=== PATIENT | male | born 1960 | race Caucasian/White ===

== ENCOUNTER 2018-02-24 09:16 | Observation (INO) | payer OTHER ==
[2018-02-24 09:25] VITALS: BMI 35.9
--- NOTE | 2018-02-24 10:03 | PDOC ---
Attending Attestation - Resident Resident Name: SenJustin - ED Attending Attestation I have performed the following: I have examined & evaluated the patient, The case was reviewed & discussed with the resident, I agree w/resident's findings & plan, Exceptions are as noted - HPI HPI: 02/24/18 12:13 Mr. De La Cruz is a 57 yo M with a history RCC (?) s/p Left nephrectomy, h/o renal colic, lumbar disc herniations He presents to the ER with a complaint of fevers and flank pain Pt states yesterday he felt feverish, went to work Noted right flank pain No hematuria No dysuria When he arrived home, he noted that his temperature - Physicial Exam PE: 02/24/18 13:57 GENERAL: The patient is in no acute distress. LUNGS: Breath sounds equal, clear to auscultation bilaterally. No wheezes, and no crackles. HEART:Regular rate and rhythm, normal S1 and S2 without murmur, rub or gallop. ABDOMEN: Soft, nontender, normoactive bowel sounds. No guarding, no rebound. EXTREMITIES: Normal range of motion NEUROLOGICAL: Cranial nerves II through XII grossly intact. Normal speech. No focal neurological deficits. MUSCULOSKELETAL: midline tenderness to palpation not worse than prior, right CVA tenderness SKIN: No rash - Medical Decision Making 02/24/18 13:59 57 yo M presenting to the ER with a complaint of fevers and right flank pain T max 102 DD: Pyelonephritis, Renal colic, Early Zoster Will do: Labs CT IV hydration Tylenol IV Re assess 02/24/18 14:00 Laboratory Tests 02/24/18 02/24/18 02/24/18 10:16 10:16 10:17 WBC 6.9 Hgb 11.4 L Hct 35.6 Plt Count 182 Sodium 141 Potassium 3.9 Chloride 107 Carbon Dioxide 26 BUN 20 H Creatinine 1.4 H Random Glucose 90 Urine Blood Negative Ur Leukocyte Esterase Negative Urine WBC (Auto) 1 Urine RBC (Auto) <1 CT: No stones No stranding around kidney No hydronephrosis Mass on kidney with radiologist recommends follow up US US pending Case reviewed with Hospitalist JOB TRAINING SPECIALIST Not inclined to admit him at this time Will re address this once pt has had US
[2018-02-24] MEDS ORDERED: SODIUM CHLORIDE 0.9% 500 ML INFUS.BAG IV ONE (10:12)
--- NOTE | 2018-02-24 10:23 | PDOC ---
History of Present Illness - General Chief Complaint: Back Pain Stated Complaint: FEVER, BACK PAIN (KIDNEY) Time Seen by Provider: 02/24/18 09:37 - History of Present Illness Initial Comments: 02/24/18 10:16 57 y/o male presenting to [facility] ED complaining of two days of R flank pain, fever , and generalized body aches. Pain is localized to R flank without radiation to midline, lower abdomen, or perineum; location has not changed since onset. Fever to 102 orally last evening, which was responsive to PO Tylenol (last dose approx 23 February @ 21:00). Body aches generalized. Denies polyuria, dysuria, hematuria, or burning sensation. Has experienced renal colic in past and lumbar radiculopathy secondary to multiple lumbar disk herniations and states this is different. Has a history of renal cancer, type unknown by pt, diagnosed 10 years ago; s/p left nephrectomy. Denies history of STD or IV drug abuse. Denies trauma to the area. Denies nausea, vomiting, chest pain, shortness of breath, abdominal pain, constipation, melena, or hematochezia. Single episode of diarrhea this morning. Past History - Travel Traveled outside of the country in the last 30 days: No - Past Medical History Allergies/Adverse Reactions: Allergies Allergy/AdvReac Type Severity Reaction Status Date / Time clarithromycin [From Biaxin] Allergy Verified 01/09/14 08:23 NUTS Allergy Uncoded 01/09/14 08:23 Home Medications: Ambulatory Orders NK [No Known Home Medication] 01/09/14 Cancer: Yes (KIDNEY-1 KIDNEY LEFT) COPD: No HTN: Yes - Surgical History Neurologic Surgery: Yes (Left Nephrectomy ) Orthopedic Surgery: Yes (R Shoulder, R great toe) - Immunization History Immunization Up to Date: Yes - Suicide/Smoking/Psychosocial Hx Smoking Status: No Smoking History: Former smoker Number of Cigarettes Smoked Daily: 0 Information on smoking cessation initiated: No Hx Alcohol Use: No Drug/Substance Use Hx: No Substance Use Type: Marijuana (Infrequent Use) Review of Systems - Review of Systems Able to Perform ROS?: Yes Is the patient limited Armenian proficient: No Constitutional: Yes: Chills, Diaphoresis, Fever. No: Weakness HEENTM: No: Recent change in vision, Mouth Pain, Difficulty Swallowing Respiratory: No: Shortness of Breath Cardiac (ROS): No: Chest Pain, Lightheadedness, Syncope, Chest Tightness ABD/GI: Yes: Diarrhea. No: Abd. Pain w/ defecation, Blood Streaked Bowels, Constipated, Difficulty Swallowing, Nausea, Rectal Bleeding, Vomiting, Tarry Stools : Yes: Flank Pain. No: Burning, Dysuria, Discharge, Frequency, Hematuria, Incontinence, Testicular Pain Musculoskeletal: Yes: Muscle Pain Integumentary: No: Rash Neurological: Yes: Headache *Physical Exam - Vital Signs Last Vital Signs Temp Pulse Resp BP Pulse Ox 98.4 F 68 16 150/94 98 02/24/18 09:23 02/24/18 09:23 02/24/18 09:23 02/24/18 09:23 02/24/18 09:23 - Physical Exam Comments: 02/24/18 10:43 Constitutional: Well-developed, well-nourished male in no acute distress. Alert and oriented x4, with normal affect. Dressed and groomed appropriately. Eyes: Sclerae white. Moist, non-injected conjunctiva. ENT: Oropharynx: pink, moist, not injected, no lesions, no ulcerations. Moist mucus membranes. Neck: Supple, trachea is midline, no JVD. Cardiovascular: Regular rate and regular rhythm. PMI not displaced. Peripheral pulses: Radial pulses full Respiratory: Clear to auscultation bilaterally. No stridor, no wheezing, no rhonchi. Gastrointestinal: abdomen is soft, non-tender, non-distended. There is no hepatosplenemegaly, masses or tenderness. No CVA tenderness. MSK: No midline lumbar spinal tenderness. Flank pain increases with torso rotation and raising both right and left legs. Neuro: Alert and oriented. Moving all extremities spontaneously. Psych: Appropriate affect. Skin: Intact. No bruising or other obvious signs of trauma. No rash. ED Treatment Course - LABORATORY CBC & Chemistry Diagram: 02/24/18 10:16 02/24/18 10:16 - RADIOLOGY Radiology Studies Ordered: Category Date Time Status ABDOMEN & PELVIS CT W/O CONTR [CT] Stat CT Scan 02/24/18 10:12 Ordered Medical Decision Making - Medical Decision Making 02/24/18 11:08 57 y/o male with history of renal cancer s/p left nephrectomy and lumbar disk herniation with radiculopathy presents with non-radiating, non-migrating right flank pain and general body aches. Reported fever to 102 at home. No GI or symptoms. Afebrile on presentation. Vitals remarkable for systolic hypertension without tachycardia. Physical unremarkable for CVA tenderness or abdominal tenderness; pain increased with raising either left or right leg. Concern for pyelonephritis given fever and flank pain however no CVA tenderness. Concern for lumbar radiculopathy given pain increased by raising leg in setting of lumbar disk herniation history. Considered paraspinal/ osteomylitis given pain and fever but less likely without history of IV drug abuse. Cauda equina syndrome seems less likely given lack of urinary retention. Nephrolithiasis considered but less likely without migrating pain or hematuria. Will obtain non-contrast CT of Abd/pelvis with concern given to prior cancer diagnosis. Will order CBC, CMP, ESR, CRP, UA, and urine culture to further evaluate. Ordered IV acetaminophen for pain control. CBC unremarkable for leukocytosis. CMP revealed unremarkable LFTs, hypokalcemia to 8.1. BUN and Cr elevated but difficult to interpret without comparison - last recorded labs in 2013. UA unremarkable for leukocyte esterase or WBC. CRP elevated. ESR pending. Discussed results with patient and as well as the possibility of admission to the hospital. Both expressed verbal understanding and agreement with current plan. 02/24/18 13:36 Non-con CT unremarkable for evidence of hydronephrosis or obstruction. Noted mass projecting from lower pole of right kidney, which was not present on previous scans. Additionally noted increase in size of right adrenal nodule compared to scan from December 2013. Will evaluate renal mass with ultrasound. 02/24/18 14:42 Pt reassessed. Continues to complain of back pain but has not received ordered Tylenol. RN notified, and meds drawn. 02/24/18 15:33 Telephone consulted with pt's PCP, Dr. Torres. He requested the pt be admitted for observation with concern for the pt's elevated Cr and pain management. Reached out to hospitalist team again via [employer]. 02/24/18 15:41 Admitting team agrees to accept pt into observation. *DC/Admit/Observation/Transfer Diagnosis at time of Disposition: CHRISTINA (acute kidney injury) Back pain Qualifiers: Back pain location: low back pain Chronicity: acute Back pain laterality: right Sciatica presence: without sciatica Qualified Code(s): M54.5 - Low back pain - Discharge Dispostion Condition at time of disposition: Stable Decision to Admit order: Yes - Referrals - Patient Instructions - Post Discharge Activity
[2018-02-24 10:44] LABS: BASO % 0.6 % (0-2.0); EOS % 1.8 % (0-4.5); HEMATOCRIT 35.6 % (35.4-49); HEMOGLOBIN 11.4 GM/dL (11.7-16.9); LYMPH % 14.3 % (8-40); MCH 22.6 pg (25.7-33.7); MCHC 32.2 g/dl (32.0-35.9); MEAN CELL VOLUME 70.4 fl (80-96); MEAN PLT VOLUME 8.3 fl (7.5-11.1); MONO % 6.8 % (3.8-10.2); NEUT % 76.5 % (42.8-82.8); PLATELET COUNT 182 K/MM3 (134-434); RBC 5.05 M/mm3 (4.00-5.60); RDW 18.4 % (11.9-15.9); WHITE BLOOD COUNT 6.9 K/mm3 (4.0-10.0)
[2018-02-24 10:47] LABS: URINE APPEARANCE CLEAR; URINE BILIRUBIN NEGATIVE (<2.0 mg/dL); URINE COLOR YELLOW; URINE GLUCOSE (UA) NEGATIVE (NEGATIVE); URINE KETONE NEGATIVE (NEGATIVE); URINE LEUK ESTERASE NEGATIVE (NEGATIVE); URINE NITRITE NEGATIVE (NEGATIVE); URINE UROBILINOGEN NEGATIVE mg/dL (0.2-1.0)
[2018-02-24 10:52] LABS: ALBUMIN 3.4 g/dl (3.4-5.0); ANION GAP 8 (8-16); BLOOD UREA NITROGEN 20 mg/dL (7-18); CALCIUM 8.1 mg/dL (8.5-10.1); CHLORIDE 107 mmol/L (98-107); CO2 26 mmol/L (21-32); GLUCOSE,RANDOM 90 mg/dL (74-106); POTASSIUM 3.9 mmol/L (3.5-5.1); SODIUM 141 mmol/L (136-145)
[2018-02-24 10:56] LABS: ALK PHOS 69 U/L (45-117); BILIRUBIN,TOTAL 0.6 mg/dL (0.2-1.0); CREATININE 1.4 mg/dL (0.7-1.3); SGOT/AST 18 U/L (15-37); SGPT/ALT 25 U/L (12-78); TOT PROT 6.8 g/dl (6.4-8.2)
[2018-02-24] MEDS ORDERED: ACETAMINOPHEN 1000 MG/100 ML VIAL (NON FORMULARY) IVPB PRN (10:57)
[2018-02-24 11:05] LABS: URINE PROTEIN 2+ (NEGATIVE)
[2018-02-24] MEDS ORDERED: ACETAMINOPHEN 1000 MG/100 ML VIAL (NON FORMULARY) IVPB ONE (11:18)
[2018-02-24 11:41] LABS: URINE HYALINE CAST 101 /lpf; URINE MUCUS RARE
[2018-02-24 14:40] LABS: ERYTHROCYTE SEDIMENTATION RATE 12 mm/hr (0-20)
[2018-02-24] MEDS ORDERED: ACETAMINOPHEN 325 MG TABLET (FP) ONE (14:41)
--- NOTE | 2018-02-24 17:42 | HP ---
CHIEF COMPLAINT: Fever, pains PCP: Dr. Torres HISTORY OF PRESENT ILLNESS: This is a 57 year old male with PMHx of left renal cell carcinoma, HTN, herniated discs, who presented to the ED with generalized body aches, fever, right flank pain. The patient reports that yesterday his knees began to hurt and he began having generalized body aches. Around 2:30 in the afternoon he began feeling feverish. At 9:30pm his temperature was 101.4. Then at 1am he woke up in a sweat and his temperature was 102. He reports he is feeling better today but came in because he was concerned that he only has one kidney. He denies any chest pain, palpitations, headache, dizziness, headache, lower extremity weakness. Off note, the patient reports suffering from chronic back pain. ER course was notable for: (1) CTAP s/p left nephrectomy without evidence of right urinary tract calculi or obstructive uropathy. 2.7cm lower pole right renal mass that could represent a cyst. Right adrenal nodule that has increased in size since 01/09/14. Splenomegaly with adjacent accessory spleen (2) Renal ultrasound with right suprarenal nodule compatible with previously described right adrenal nodule/mass (3) Cr 1.4 Recent Travel: denies PAST MEDICAL HISTORY: as above PAST SURGICAL HISTORY: as above Social History: Smoking: denies Alcohol: denies Drugs: denies Family History: Allergies clarithromycin [From Biaxin] Allergy (Verified 01/09/14 08:23) NUTS Allergy (Uncoded 01/09/14 08:23) HOME MEDICATIONS: Home Medications Medication Instructions Recorded NK [No Known Home Medication] 01/09/14 REVIEW OF SYSTEMS CONSTITUTIONAL: Fever overnight, generalized weakness Absent: chills, diaphoresis, malaise, loss of appetite, weight change HEENT: Absent: rhinorrhea, nasal congestion, throat pain, throat swelling, difficulty swallowing, mouth swelling, ear pain, eye pain, visual changes CARDIOVASCULAR: Absent: chest pain, syncope, palpitations, irregular heart rate, lightheadedness , peripheral edema RESPIRATORY: Absent: cough, shortness of breath, dyspnea with exertion, orthopnea, wheezing, stridor, hemoptysis GASTROINTESTINAL: Absent: abdominal pain, abdominal distension, nausea, vomiting, diarrhea, constipation, melena, hematochezia GENITOURINARY: Absent: dysuria, frequency, urgency, hesitancy, hematuria, flank pain, genital pain MUSCULOSKELETAL: Joint pains all over since yesterday Absent: myalgia, joint swelling, back pain, neck pain SKIN: Absent: rash, itching, pallor HEMATOLOGIC/IMMUNOLOGIC: Absent: easy bleeding, easy bruising, lymphadenopathy, frequent infections ENDOCRINE: Absent: unexplained weight gain, unexplained weight loss, heat intolerance, cold intolerance NEUROLOGIC: Absent: headache, focal weakness or paresthesias, dizziness, unsteady gait, seizure, mental status changes, bladder or bowel incontinence PSYCHIATRIC: Absent: anxiety, depression, suicidal or homicidal ideation, hallucinations. PHYSICAL EXAMINATION Vital Signs - 24 hr 02/24/18 02/24/18 02/24/18 09:23 12:36 16:10 Temperature 98.4 F 98.8 F 98.8 F Pulse Rate 68 Pulse Rate [ 68 70 Radial] Respiratory 16 18 18 Rate Blood Pressure 150/94 Blood Pressure 155/82 145/80 [Right Arm] O2 Sat by Pulse 98 98 98 Oximetry (%) GENERAL: Awake, alert, and fully oriented, in no acute distress. HEAD: no nuchal rigidity. Normal with no signs of trauma. EYES: Pupils equal, round and reactive to light, extraocular movements intact, sclera anicteric, conjunctiva clear. No lid lag. EARS, NOSE, THROAT: Ears normal, nares patent, oropharynx clear without exudates. Moist mucous membranes. NECK: Normal range of motion, supple without lymphadenopathy, JVD, or masses. LUNGS: Breath sounds equal, clear to auscultation bilaterally. No wheezes, and no crackles. No accessory muscle use. HEART: Regular rate and rhythm, normal S1 and S2 without murmur, rub or gallop. ABDOMEN: Soft, nontender, not distended, normoactive bowel sounds, no guarding, no rebound, no masses. No hepatomegaly or splenomegaly. MUSCULOSKELETAL: Mild right CVA tenderness. Normal range of motion at all joints. No bony deformities or tenderness. UPPER EXTREMITIES: 2+ pulses, warm, well-perfused. No cyanosis. No clubbing. No peripheral edema. LOWER EXTREMITIES: 2+ pulses, warm, well-perfused. No calf tenderness. No peripheral edema. NEUROLOGICAL: Cranial nerves II-XII intact. Normal speech. PSYCHIATRIC: Cooperative. Good eye contact. Appropriate mood and affect. SKIN: Warm, dry, normal turgor, no rashes or lesions noted, normal capillary refill. Laboratory Results - last 24 hr 02/24/18 02/24/18 02/24/18 10:16 10:16 10:17 WBC 6.9 RBC 5.05 Hgb 11.4 L Hct 35.6 MCV 70.4 L MCH 22.6 L MCHC 32.2 RDW 18.4 H Plt Count 182 MPV 8.3 Absolute Neuts (auto) 5.3 Neutrophils % 76.5 D Lymphocytes % 14.3 D Monocytes % 6.8 Eosinophils % 1.8 Basophils % 0.6 Nucleated RBC % 0 ESR 12 Sodium 141 Potassium 3.9 Chloride 107 Carbon Dioxide 26 Anion Gap 8 BUN 20 H Creatinine 1.4 H Creat Clearance w eGFR 52.05 Random Glucose 90 Calcium 8.1 L Total Bilirubin 0.6 AST 18 ALT 25 Alkaline Phosphatase 69 C-Reactive Protein 5.6 H Total Protein 6.8 Albumin 3.4 Urine Color Yellow Urine Appearance Clear Urine pH 5.0 Ur Specific [place] 1.024 Urine Protein 2+ H Urine Glucose (UA) Negative Urine Ketones Negative Urine Blood Negative Urine Nitrite Negative Urine Bilirubin Negative Urine Urobilinogen Negative Ur Leukocyte Esterase Negative Urine WBC (Auto) 1 Urine RBC (Auto) <1 Hyaline Casts 101 Urine Mucus Rare Assessment: This is a 57 year old male with PMHx of left renal cell carcinoma, HTN, herniated discs, who presented to the ED with generalized body aches, fever , right flank pain. Plan: 1) Arthralgia, fever - No joint swelling - Viral syndrome vs. lyme disease vs. gonorrhea? - F/u lyme Ab - F/u cultures - F/u GC/CT - F/u CRP (ESR WNL) - Will hold off on antibiotics at this time 2) Right flank pain - CTAP reviewed - Baseline Cr ~1.2-1.3 - Discussed with Dr. Torres who is recommending a nephrology consult 3) HTN - Hold Losartan 2/2 worsening kidney function? - Continue Lopressor - Continue Norvasc 4) F/E/N: - Sodium controlled diet - Monitor electrolytes 5) Prophylaxis: - SCDs bilaterally - OOB ambulating 6) Dispo: - Once condition improves CODE STATUS: FULL CODE Visit type - Emergency Visit Emergency Visit: Yes ED Registration Date: 07/12/18 Care time: The patient presented to the Emergency Department on the above date and was hospitalized for further evaluation of their emergent condition. - New Patient This patient is new to me today: Yes Date on this admission: 02/24/18 - Critical Care Critical Care patient: No Hospitalist Screening - Colonoscopy Questionnaire Colonoscopy Questionnaire: Colonoscopy Questionnaire - Patient: 50 - 75 years old and never had a screening colonoscopy: Unknown History of colon or rectal polyps, or CA: Unknown History of IBD, Crohn's disease or UC: Unknown History of abdominal radiation therapy as a child: Unknown - Relative: 1 with colon or rectal CA, or polyps at age 60 or younger: Unknown Colon or rectal CA diagnosed at age 45 or younger: Unknown Multiple relatives with colon or rectal CA: Unknown - Outcome: Screening Result: Negative Screen
[2018-02-24] MEDS: SODIUM CHLORIDE 1,000 ML IV SCH (17:46)
[2018-02-24] MEDS: METOPROLOL TARTRATE 25 MG TABLET (FP) PO SCH (22:06)
[2018-02-24] MEDS ORDERED: ACETAMINOPHEN 325 MG TABLET (FP) PO ONE (22:32)
[2018-02-25] MEDS: SODIUM CHLORIDE 1,000 ML IV SCH (06:26)
[2018-02-25 07:54] LABS: HEMATOCRIT 35.4 % (35.4-49); HEMOGLOBIN 11.4 GM/dL (11.7-16.9); MCH 22.7 pg (25.7-33.7); MCHC 32.2 g/dl (32.0-35.9); MEAN CELL VOLUME 70.7 fl (80-96); MEAN PLT VOLUME 7.9 fl (7.5-11.1); PLATELET COUNT 163 K/MM3 (134-434); RBC 5.01 M/mm3 (4.00-5.60); RDW 18.1 % (11.9-15.9); WHITE BLOOD COUNT 5.5 K/mm3 (4.0-10.0)
[2018-02-25 08:17] LABS: CHLORIDE 106 mmol/L (98-107); POTASSIUM 3.9 mmol/L (3.5-5.1); SODIUM 141 mmol/L (136-145)
[2018-02-25 08:37] LABS: ALBUMIN 3.2 g/dl (3.4-5.0); ALK PHOS 62 U/L (45-117); ANION GAP 6 (8-16); BILIRUBIN,TOTAL 0.4 mg/dL (0.2-1.0); BLOOD UREA NITROGEN 14 mg/dL (7-18); CALCIUM 8.2 mg/dL (8.5-10.1); CO2 29 mmol/L (21-32); CREATININE 1.1 mg/dL (0.7-1.3); GLUCOSE,RANDOM 95 mg/dL (74-106); SGOT/AST 19 U/L (15-37); SGPT/ALT 26 U/L (12-78); TOT PROT 6.4 g/dl (6.4-8.2)
[2018-02-25] MEDS: METOPROLOL TARTRATE 25 MG TABLET (FP) PO SCH (09:21)
[2018-02-25] MEDS ORDERED: amLODIPine BESYLATE 10 MG TABLET (FP) PO SCH (10:00)
[2018-02-25 10:53] VITALS: BP 161/94; PULSE 77; TEMP 99
--- NOTE | 2018-02-25 11:09 | PN ---
Progress Note (short form) - Note Progress Note: ID Full note dictated Afebrile Exam negative Microbiology 02/24/18 10:17 Urine - Urine Clean Catch Urine Culture - Final NO GROWTH OBTAINED 02/24/18 10:16 Blood - Peripheral Venous Blood Culture - Preliminary NO GROWTH OBTAINED AFTER 24 HOURS, INCUBATION TO CONTINUE FOR 4 DAYS. 02/24/18 10:16 Blood - Peripheral Venous Blood Culture - Preliminary NO GROWTH OBTAINED AFTER 24 HOURS, INCUBATION TO CONTINUE FOR 4 DAYS. Laboratory Tests 02/24/18 02/25/18 02/25/18 10:17 05:30 05:30 WBC 5.5 Hgb 11.4 L Plt Count 163 BUN 14 Creatinine 1.1 Creat Clearance w eGFR > 60 Total Bilirubin 0.4 AST 19 ALT 26 Alkaline Phosphatase 62 Urine WBC (Auto) 1 Urine RBC (Auto) <1 Assessment No obvious infection or fever Discharge planning Problem List - Problems (1) Fever, unknown origin Code(s): R50.9 - FEVER, UNSPECIFIED
--- NOTE | 2018-02-25 11:50 | CONS ---
DATE OF CONSULTATION: DATE OF DICTATION: 02/25/2018 HISTORY OF PRESENT ILLNESS: This is a 57-year-old male with a history of left renal cell carcinoma status post nephrectomy who was admitted to the hospital with a 24-hour history of fever to 102 at home. He noted generalized body aches which began in the middle of this past week and were associated with body pain and pain in his joints. He denied any joint swelling, rash, history of tick bite, sore throat, cough, abdominal pain or urinary complaints. He has a history of nephrectomy in the past on the left side for renal cell carcinoma and has chronic pain in his right lower back which he was complaining of when he came in. Here he had no fever. A CT scan showed a left nephrectomy without evidence of right urinary tract calculi or obstructive uropathy. A 2.7-cm lower right renal mass representing a cyst was noted and a right adrenal nodule that had increased in size since January 09. He has been afebrile here and monitored off of antibiotics. He has no travel history. 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 PAST MEDICAL HISTORY: As noted above. SOCIAL HISTORY: Nonsmoker. No alcohol. No drugs. FAMILY HISTORY: Noncontributory. REVIEW OF SYSTEMS: All systems reviewed and noncontributory. PHYSICAL EXAMINATION:General: He was an alert male in no acute distress Vital Signs: The temperature was 99, pulse 77, blood pressure 160/94, respirations 20. Neck: Supple. No adenopathy. Lungs: Clear to percussion and auscultation. Heart: S1, S2. Regular rhythm without murmur. Abdomen: Soft, nontender without hepatosplenomegaly, guarding or rebound. Extremities: No clubbing, cyanosis or edema. LABORATORY DATA: The white count was 6.9, hemoglobin 11.4, platelets of 182. Sedimentation rate of 12. BUN of 20, creatinine 1.4, repeat 1.1. Liver enzymes within normal limits. Urinalysis: RBC 1, 1 WBC. Renal ultrasound shows right lower pole cyst and suprarenal adrenal nodules previously mentioned. Spleen appeared slightly enlarged, 13 cm. ASSESSMENT: A 57-year-old male presents with transient fever which began at home with generalized body aches but no localizing findings at this time to suggest a source of infection. Clinically he has been doing well with no fever here and a normal white count and negative cultures of both blood and urine. He is not currently on any antibiotic treatment and at this point no further recommendation from the ID standpoint. Discharge planning. ANGELICA LOCKE M.D. [id number]
--- NOTE | 2018-02-25 13:51 | DS ---
Physical Examination Vital Signs: Vital Signs Temperature 99 F 02/25/18 10:00 Pulse Rate 77 02/25/18 10:00 Respiratory Rate 20 02/25/18 10:00 Blood Pressure 161/94 02/25/18 10:00 O2 Sat by Pulse Oximetry (%) 98 02/25/18 09:00 Labs: CBC, BMP 02/25/18 05:30 02/25/18 05:30 Discharge Summary Reason For Visit: ACUTE KIDNEY INJURY,BACK PAIN Current Active Problems CHRISTINA (acute kidney injury) (Acute) Back pain (Acute) Fever, unknown origin (Acute) Condition: Improved - Instructions Diet, Activity, Other Instructions: Please return to the ED with new, persistent, or worsening symptoms. Please follow-up with providers as indicated. Continue taking your blood pressure medication as you were at home. Referrals: Janny Torres MD [Primary Care Provider] - 1 Week Alok Roa MD [Staff Physician] - (Please follow-up with nephrology within 2-3 days for further management of your right kidney and to monitor your kidney function. ) Disposition: HOME - Home Medications Comprehensive Discharge Medication List: Ambulatory Orders Amlodipine Besylate [Norvasc -] 10 mg PO DAILY tablet 02/25/18 Losartan Potassium 100 mg PO DAILY #1 tablet 02/25/18 Metoprolol Tartrate [Lopressor -] 25 mg PO BID tablet 02/25/18
[2018-02-25] MEDS ORDERED: LOSARTAN POTASSIUM 50 MG TABLET (FP) PO ONE ×2 (14:00→14:15)
[2018-03-01 06:17] LABS: BABESIA MICROTI ANTIBODY IGG <1:10 (Neg:<1:10); BABESIA MICROTI ANTIBODY IGM <1:10 (Neg:<1:10); IgG Ab 23 kDa Band Absent (.); IgG Ab 28 kDa Band Absent (.)
== END 2018-02-25 14:21 | disposition home or self-care (01) ==
LOC: JER 09:16 → JERBED 15:39 → J7W 16:48
PROVIDERS: ADMIT Internal Medicine; ATTEND Registered Nurse
PROC: 3E03329 Introduction of Other Anti-infective into Peripheral Vein, Percutaneous Approach (ICD-10-PCS; principal; 2018-02-24)
PROC: 3E0337Z Introduction of Electrolytic and Water Balance Substance into Peripheral Vein, Percutaneous Approach (ICD-10-PCS; 2018-02-24)
DX: N17.9 Acute kidney failure, unspecified (principal); R50.9 Fever, unspecified; M25.50 Pain in unspecified joint; R10.9 Unspecified abdominal pain; M54.5 Low back pain; I10 Essential (primary) hypertension; Z85.528 Personal history of other malignant neoplasm of kidney; Z87.891 Personal history of nicotine dependence; Z91.018 Allergy to other foods; Z88.1 Allergy status to other antibiotic agents; Z90.5 Acquired absence of kidney
CPT/HCPCS: 36415; 74176-TC; 76775-TC; 80053; 81003; 81015; 85025; 85027; 85651; 86140; 86618; 86753; 87040; 87086; 99285-25; G0378; J0131; J7030

== ENCOUNTER 2018-10-18 09:33 | Emergency (ER) | payer OTHER ==
[2018-10-18 09:46] VITALS: BP 170/79; PULSE 55; TEMP 98; BMI 31.6
--- NOTE | 2018-10-18 10:22 | PDOC ---
History of Present Illness - General Chief Complaint: Back Pain Stated Complaint: BACK PAIN Time Seen by Provider: 10/18/18 10:00 History Source: Patient Exam Limitations: No Limitations - History of Present Illness Initial Comments: 10/18/18 10:36 States he slipped on wet ground one week ago twisting his lower back and since that time has had progressive worsening of his chronic low back pain. Patient has known multiple disc injury but has not had exacerbation of pain in some time. Usually seeks chiropractic work, uses home therapies but the pain has progressively worsen. Patient states has radiating pain down sciatic distribution of his left leg. Occurred: reports: just prior to arrival, this morning Severity: reports: mild, moderate Pain Location: reports: back Method of Injury: Yes: direct blow, fall Loss of Consciousness: no loss of consciousness Associated Symptoms (Fall): denies symptoms Past History - Travel Traveled outside of the country in the last 30 days: No Close contact w/someone who was outside of country & ill: No - Past Medical History Allergies/Adverse Reactions: Allergies Allergy/AdvReac Type Severity Reaction Status Date / Time clarithromycin [From Biaxin] Allergy Verified 10/18/18 09:43 NUTS Allergy Uncoded 10/18/18 09:43 Home Medications: Ambulatory Orders Amlodipine Besylate [Norvasc -] 10 mg PO DAILY tablet 02/25/18 Losartan Potassium 100 mg PO DAILY #1 tablet 02/25/18 Metoprolol Tartrate [Lopressor -] 25 mg PO BID tablet 02/25/18 Acetaminophen 1,000 mg PO Q6H PRN #30 tablet 10/18/18 Cyclobenzaprine HCl 10 mg PO Q8H PRN #14 tablet 10/18/18 Cancer: Yes (KIDNEY-1 KIDNEY LEFT) COPD: No HTN: Yes Other medical history: disc derangement to back - Surgical History Neurologic Surgery: Yes (Left Nephrectomy ) Orthopedic Surgery: Yes (R Shoulder, R great toe) - Immunization History Immunization Up to Date: Yes - Suicide/Smoking/Psychosocial Hx Smoking Status: No Smoking History: Smoker current status UNK Have you smoked in the past 12 months: No Number of Cigarettes Smoked Daily: 0 Hx Alcohol Use: No Drug/Substance Use Hx: No Substance Use Type: Marijuana (Infrequent Use) Review of Systems - Review of Systems Able to Perform ROS?: Yes Is the patient limited [place] proficient: Yes Constitutional: Yes: Symptoms Reported, See HPI, Malaise. No: Fever HEENTM: Yes: See HPI. No: Symptoms Reported Respiratory: Yes: See HPI. No: Symptoms reported, Cough Musculoskeletal: Yes: Symptoms Reported, See HPI, Back Pain, Muscle Pain All Other Systems: Reviewed and Negative *Physical Exam - Vital Signs Last Vital Signs Temp Pulse Resp BP Pulse Ox 98 F 55 L 20 170/79 98 10/18/18 09:44 10/18/18 09:44 10/18/18 09:44 10/18/18 09:44 10/18/18 09:44 - Physical Exam General Appearance: Yes: Nourished, Appropriately Dressed, Mild Distress HEENT: positive: ALEJANDRA, Normal ENT Inspection, TMs Normal, Pharynx Normal Neck: positive: Supple. negative: Tender, Lymphadenopathy (R), Lymphadenopathy (L) Respiratory/Chest: positive: Lungs Clear, Normal Breath Sounds Gastrointestinal/Abdominal: positive: Soft Musculoskeletal: positive: Decreased Range of Motion (tender tight musculature and paravertebral spinous muscles worse on the left than the right area has no true spine tenderness, no bony injury. Range of motion is limited secondary to this tenderness and spasm in his low back), Muscle Spasm Extremity: positive: Normal Capillary Refill, Normal Inspection. 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 NML intact, Fully Oriented, Alert, Normal Mood/ Affect, Normal Response, Motor Strength 5/5 Moderate Sedation - Procedure Monitoring Vital Signs: Procedure Monitoring Vital Signs Temperature 98 F 10/18/18 09:44 Pulse Rate 55 L 10/18/18 09:44 Respiratory Rate 20 10/18/18 09:44 Blood Pressure 170/79 10/18/18 09:44 O2 Sat by Pulse Oximetry (%) 98 10/18/18 09:44 Progress Note - Progress Note Progress Note: Low back strain, will treat with NSAIDs and cyclobenzaprine *DC/Admit/Observation/Transfer Diagnosis at time of Disposition: Strain of mid-back Qualifiers: Encounter type: initial encounter Qualified Code(s): S29.012A - Strain of muscle and tendon of back wall of thorax, initial encounter - Discharge Dispostion Disposition: HOME Condition at time of disposition: Stable Decision to Admit order: No - Prescriptions Prescriptions: Acetaminophen 1,000 mg PO Q6H PRN #30 tablet PRN Reason: Pain Cyclobenzaprine HCl 10 mg PO Q8H PRN #14 tablet PRN Reason: spasm - Referrals Referrals: Janny Torres MD [Primary Care Provider] - - Patient Instructions Printed Discharge Instructions: DI for Back Strain or Sprain Additional Instructions: Rest, no heavy lifting or exercise until pain is resolved Hot soaks to neck and low back as often as possible/hot showers or Jacuzzis No massage or therapy until spasm is gone Continue Tylenol 2500 milligrams tablets every 4-6 hours for the next 3 days then as needed for pain and swelling Cyclobenzaprine 1-10mg every 8 hours as needed for spasm If not significant improvement within 24 hours with medication and rest regime, followup with private physician for change in medications and /or therapy. - Post Discharge Activity Forms/Work/School Notes: Back to Work
== END 2018-10-18 10:47 | disposition home or self-care (01) ==
LOC: JERFT 09:33
DX: S29.012A Strain of muscle and tendon of back wall of thorax, initial encounter (principal); W01.0XXA Fall on same level from slipping, tripping and stumbling without subsequent striking against object, initial encounter; Y93.89 Activity, other specified; Y92.89 Other specified places as the place of occurrence of the external cause; Y99.8 Other external cause status; I10 Essential (primary) hypertension; Z85.528 Personal history of other malignant neoplasm of kidney; Z90.5 Acquired absence of kidney
CPT/HCPCS: 99281-25

== ENCOUNTER 2020-10-23 20:39 | Emergency (ER) | payer OTHER ==
[2020-10-23 20:51] VITALS: TEMP 97.8; BMI 36.6
[2020-10-23] MEDS ORDERED: metoPROLOL SUCCINATE 25 MG TAB.SR.24H (FP) PO ONE (21:36)
[2020-10-23] MEDS ORDERED: metoPROLOL SUCCINATE 25 MG TAB.SR.24H (FP) ONE (21:41)
[2020-10-23] MEDS ORDERED: amLODIPine BESYLATE 10 MG TABLET (FP) PO ONE (22:43)
[2020-10-23] MEDS ORDERED: amLODIPine BESYLATE 5 MG TABLET (FP) ONE (22:45)
[2020-10-23] MEDS ORDERED: METOCLOPRAMIDE HCL INJECTION 10 MG/2 ML VIAL IVPUSH ONE (23:48)
[2020-10-23] MEDS ORDERED: ACETAMINOPHEN 1000 MG/100 ML BAG IVPB ONE (23:48)
[2020-10-23] MEDS ORDERED: METOCLOPRAMIDE HCL INJECTION 10 MG/2 ML VIAL ONE ×2 (23:50→23:55)
[2020-10-23] MEDS ORDERED: ACETAMINOPHEN INJECTION 100 ML IVPB ONE (23:50)
[2020-10-23] MEDS ORDERED: LABETALOL HCL 5 MG/1 ML (200MG/40ML VIAL) IVPB ONE (23:51)
[2020-10-24] MEDS ORDERED: LABETALOL HCL 5 MG/1 ML (100MG/20 ML VIAL) IVPUSH ONE (00:11)
[2020-10-24 00:21] LABS: BASO % 0.5 % (0-2.0); HEMATOCRIT 38.2 % (35.4-49); HEMOGLOBIN 12.7 GM/dL (11.7-16.9); LYMPH % 17.2 % (8-40); MCH 25.3 pg (25.7-33.7); MCHC 33.1 g/dl (32.0-35.9); MEAN CELL VOLUME 76.6 fl (80-96); MEAN PLT VOLUME 8.2 fl (7.5-11.1); NEUT % 72.3 % (42.8-82.8); PLATELET COUNT 199 K/MM3 (134-434); RBC 4.99 M/mm3 (4.00-5.60); RDW 16.7 % (11.9-15.9); WHITE BLOOD COUNT 11.4 K/mm3 (4.0-10.0)
[2020-10-24 00:51] LABS: CHLORIDE 108 mmol/L (98-107); SODIUM 143 mmol/L (136-145)
[2020-10-24 00:54] LABS: ALBUMIN 3.7 g/dl (3.4-5.0); ANION GAP 6 MMOL/L (8-16); BLOOD UREA NITROGEN 31.9 mg/dL (7-18); CALCIUM 8.8 mg/dL (8.5-10.1); CO2 28 mmol/L (21-32); GLUCOSE,RANDOM 107 mg/dL (74-106)
[2020-10-24 00:57] LABS: CREATININE 1.4 mg/dL (0.55-1.3); SGOT/AST 17 U/L (15-37); SGPT/ALT 26 U/L (13-61)
[2020-10-24 00:59] LABS: BILIRUBIN,TOTAL 0.5 mg/dL (0.2-1); TOT PROT 7.1 g/dl (6.4-8.2)
[2020-10-24 01:00] LABS: ALK PHOS 63 U/L (45-117)
[2020-10-24 03:55] VITALS: BP 180/98; PULSE 60
== END 2020-10-24 04:43 | disposition home or self-care (01) ==
LOC: JER 20:39
PROC: 3E033GC Introduction of Other Therapeutic Substance into Peripheral Vein, Percutaneous Approach (ICD-10-PCS; principal; 2020-10-23)
DX: R04.0 Epistaxis (principal); R51.9 Headache, unspecified; I10 Essential (primary) hypertension
CPT/HCPCS: 36415; 70450-TC; 80053; 82550; 84484; 85025; 93005; 93010; 99285-25; J0131

== ENCOUNTER 2020-11-20 12:05 | Inpatient (IN) | payer OTHER ==
[2020-11-20] MEDS ORDERED: ACETAMINOPHEN 1000 MG/100 ML VIAL (NON FORMULARY) IVPB ONE (13:35)
[2020-11-20] MEDS ORDERED: ACETAMINOPHEN INJECTION 100 ML IVPB ONE (13:53)
[2020-11-20 14:21] LABS: BASO % 0.7 % (0-2.0); EOS % 4.2 % (0-4.5); HEMATOCRIT 38.6 % (35.4-49); HEMOGLOBIN 12.6 GM/dL (11.7-16.9); LYMPH % 15.8 % (8-40); MCH 25.2 pg (25.7-33.7); MCHC 32.6 g/dl (32.0-35.9); MEAN CELL VOLUME 77.2 fl (80-96); MEAN PLT VOLUME 8.8 fl (7.5-11.1); MONO % 4.8 % (3.8-10.2); NEUT % 74.5 % (42.8-82.8); PLATELET COUNT 199 K/MM3 (134-434); RBC 5.01 M/mm3 (4.00-5.60); RDW 16.3 % (11.9-15.9)
[2020-11-20 14:27] LABS: INR 0.97 (0.83-1.09); PROTHROMBIN TIME (PATIENT) 11.8 SEC (9.7-13.0)
[2020-11-20 14:30] LABS: ACTIVATED PTT 26.7 SECONDS (25.2-36.5)
[2020-11-20 14:36] LABS: CHLORIDE 102 mmol/L (98-107); SODIUM 138 mmol/L (136-145)
[2020-11-20 14:39] LABS: ALBUMIN 3.8 g/dl (3.4-5.0); CALCIUM 8.9 mg/dL (8.5-10.1); GLUCOSE,RANDOM 105 mg/dL (74-106); MAGNESIUM 2.2 mg/dL (1.8-2.4)
[2020-11-20 14:42] LABS: CREATININE 1.2 mg/dL (0.55-1.3); SGOT/AST 22 U/L (15-37); SGPT/ALT 23 U/L (13-61)
[2020-11-20 14:44] LABS: BILIRUBIN,TOTAL 0.5 mg/dL (0.2-1); TOT PROT 7.1 g/dl (6.4-8.2)
[2020-11-20 14:45] LABS: ALK PHOS 67 U/L (45-117)
[2020-11-20 14:55] LABS: ANION GAP 8 MMOL/L (8-16); CO2 28 mmol/L (21-32)
[2020-11-20] MEDS ORDERED: ASPIRIN 81 MG CHEWABLE TABLETS PO ONE (14:57)
[2020-11-20] MEDS ORDERED: hydrALAZINE HCL 50 MG TABLET (FP) PO ONE (15:00)
[2020-11-20] MEDS ORDERED: ASPIRIN 81 MG CHEWABLE TABLETS ONE (15:22)
[2020-11-20] MEDS ORDERED: hydrALAZINE HCL 25 MG TABLET (FP) ONE ×2 (15:22→23:44)
[2020-11-20] MEDS ORDERED: FUROSEMIDE 40 MG/4 ML INJECTABLE VIAL IVPUSH ONE (17:19)
[2020-11-20] MEDS ORDERED: amLODIPine BESYLATE 5 MG TABLET (FP) PO ONE (17:20)
[2020-11-20] MEDS ORDERED: amLODIPine BESYLATE 5 MG TABLET (FP) ONE (17:35)
[2020-11-20] MEDS ORDERED: ACETAMINOPHEN 325 MG TABLET (FP) ONE (23:44)
[2020-11-20] MEDS ORDERED: METOPROLOL TARTRATE 50 MG TABLET (FP) ONE (23:44)
[2020-11-20] MEDS ORDERED: HEPARIN NA (PORCINE) 5,000 UNITS/ML 1ML VIAL ONE (23:44)
[2020-11-20] MEDS: METOPROLOL TARTRATE 50 MG TABLET (FP) PO SCH (23:58)
[2020-11-20] MEDS: HEPARIN NA (PORCINE) 5,000 UNITS/ML 1ML VIAL SQ SCH (23:58)
[2020-11-20] MEDS: ACETAMINOPHEN 325 MG TABLET (FP) PO PRN (23:58)
[2020-11-20] MEDS: hydrALAZINE HCL 50 MG TABLET (FP) PO SCH (23:58)
[2020-11-21] MEDS: HEPARIN NA (PORCINE) 5,000 UNITS/ML 1ML VIAL SQ SCH (06:14)
[2020-11-21 06:54] LABS: BASO % 1.1 % (0-2.0); EOS % 3.8 % (0-4.5); HEMATOCRIT 39.2 % (35.4-49); HEMOGLOBIN 13.1 GM/dL (11.7-16.9); LYMPH % 17.8 % (8-40); MCH 25.4 pg (25.7-33.7); MCHC 33.4 g/dl (32.0-35.9); MEAN CELL VOLUME 76.2 fl (80-96); MEAN PLT VOLUME 8.4 fl (7.5-11.1); NEUT % 70.3 % (42.8-82.8); PLATELET COUNT 224 K/MM3 (134-434); RBC 5.15 M/mm3 (4.00-5.60); WHITE BLOOD COUNT 10.2 K/mm3 (4.0-10.0)
[2020-11-21 07:29] LABS: MAGNESIUM 2.3 mg/dL (1.8-2.4)
[2020-11-21 07:32] LABS: PHOSPHOROUS 3.2 mg/dL (2.5-4.9)
[2020-11-21] MEDS ORDERED: ACETAMINOPHEN INJECTION 100 ML IVPB ONE (08:02)
[2020-11-21] MEDS ORDERED: ACETAMINOPHEN 1000 MG/100 ML VIAL (NON FORMULARY) IVPB ONE (08:15)
[2020-11-21] MEDS ORDERED: SODIUM CHLORIDE 250 ML IV STA (08:54)
[2020-11-21] MEDS ORDERED: amLODIPine BESYLATE 5 MG TABLET (FP) ONE (10:25)
[2020-11-21] MEDS ORDERED: hydrALAZINE HCL 25 MG TABLET (FP) ONE (10:25)
[2020-11-21] MEDS ORDERED: METOPROLOL TARTRATE 50 MG TABLET (FP) ONE (10:26)
[2020-11-21] MEDS ORDERED: VALSARTAN 80 MG TABLET ONE (10:26)
[2020-11-21] MEDS: VALSARTAN 160 MG TABLET PO SCH (10:32)
[2020-11-21] MEDS: METOPROLOL TARTRATE 50 MG TABLET (FP) PO SCH ×2 (10:32→21:28)
[2020-11-21] MEDS: amLODIPine BESYLATE 5 MG TABLET (FP) PO SCH (10:32)
[2020-11-21] MEDS: hydrALAZINE HCL 50 MG TABLET (FP) PO SCH ×2 (10:32→21:28)
[2020-11-21] MEDS ORDERED: LIDOCAINE 1%/EPI 1:100000 (50 ML MULTI DOSE VIAL) ONE (11:55)
[2020-11-21] MEDS ORDERED: GENTAMICIN SO4 80 MG/2 ML VIAL ONE (11:55)
[2020-11-21] MEDS ORDERED: BUPIVACAINE LIPOSOME/PF (EXPAREL) 266 MG/20 ML VIAL ONE (11:55)
[2020-11-21] MEDS ORDERED: VANCOMYCIN 1,000 MG VIAL (RESTRICTED TO ID ONLY) ONE (11:55)
[2020-11-21] MEDS ORDERED: BACITRACIN 15 GM TUBE TOPICAL OINTMENT ONE (11:56)
[2020-11-21] MEDS ORDERED: ROCURONIUM BROMIDE 50 MG/5 ML SYRINGE ONE (13:14)
[2020-11-21] MEDS ORDERED: SUCCINYLCHOLINE CHLORIDE 200 MG/10 ML SYRINGE ONE (13:14)
[2020-11-21] MEDS ORDERED: fentaNYL CITRATE 250 MCG/5 ML VIAL ONE (13:14)
[2020-11-21] MEDS ORDERED: MIDAZOLAM HCL 2 MG/2 ML SINGLE DOSE VIAL ONE (13:15)
[2020-11-21] MEDS ORDERED: HYDROmorphone HCl 2 MG/ML VIAL ONE ×3 (13:20→17:23)
[2020-11-21] MEDS ORDERED: ceFAZolin SODIUM 1 GM VIAL IVPB ONE ×2 (13:35→14:35)
[2020-11-21] MEDS ORDERED: VANCOMYCIN 1,000 MG VIAL (RESTRICTED TO ID ONLY) IVPB ONE ×2 (13:35→14:35)
[2020-11-21] MEDS ORDERED: PROPOFOL 20 ML ONE ×2 (14:04→16:19)
[2020-11-21] MEDS ORDERED: ePHEDrine SULFATE 50 MG/1 ML AMPULE ONE (14:25)
[2020-11-21] MEDS ORDERED: LIDOCAINE 1%/EPI 1:100000 (20 ML MULTI DOSE VIAL) INF ONE (14:40)
[2020-11-21] MEDS ORDERED: hydrALAZINE HCL 20 MG/ML VIAL ONE ×3 (16:07→21:24)
[2020-11-21] MEDS ORDERED: ONDANSETRON 4 MG/2 ML VIAL ONE (16:16)
[2020-11-21] MEDS ORDERED: LIDOCAINE HCL/PF 2% SDV 5ML VIAL ONE (16:19)
[2020-11-21] MEDS ORDERED: NEOSTIGMINE METHYLSULFATE 0.5 MG/1 ML - 10 ML MDV ONE (16:28)
[2020-11-21] MEDS ORDERED: GLYCOPYRROLATE 0.2 MG/1 ML VIAL ONE (16:28)
[2020-11-21] MEDS ORDERED: oxyCODONE HCL 5 MG TABLET PO PRN ×2 (16:54)
[2020-11-21] MEDS ORDERED: ONDANSETRON 4 MG/2 ML VIAL IVPUSH PRN (16:54)
[2020-11-21] MEDS: LACTATED RINGERS SOLUTION 1,000 ML IV SCH (18:15)
[2020-11-21] MEDS: NITROGLYCERIN 2% OINTMENT - 1GM PACKET TD PRN (19:23)
[2020-11-21] MEDS ORDERED: PNEUMOC 13-VAL CONJ-DIP CRM/PF 0.5 ML DISP.SYRIN IM ONE (19:39)
[2020-11-21] MEDS ORDERED: hydrALAZINE HCL 20 MG/ML VIAL IVPUSH ONE (19:39)
[2020-11-21] MEDS ORDERED: PNEUMOCOCCAL 23 VACCINE 0.5 ML VIAL IM ONE (19:45)
[2020-11-21] MEDS: MORPHINE SULFATE 2 MG/ML VIAL IVPUSH PRN (19:50)
[2020-11-21] MEDS ORDERED: hydrALAZINE HCL 20 MG/ML VIAL IVPUSH PRN (21:13)
[2020-11-21] MEDS: CEFAZOLIN 2 GM/D5W 2 GM/50 ML ML IVPB SCH (21:27)
[2020-11-21] MEDS: levETIRAcetam 500 MG/5 ML INJECTION VIAL IVPB SCH (21:27)
[2020-11-22] MEDS: LABETALOL HCL INJECTION 1,000 MG in SODIUM CHLORIDE 800 ML IV SCH (01:23)
[2020-11-22] MEDS: CEFAZOLIN 2 GM/D5W 2 GM/50 ML ML IVPB SCH ×4 (02:00→21:16)
[2020-11-22] MEDS: MORPHINE SULFATE 2 MG/ML VIAL IVPUSH PRN ×3 (04:47→21:16)
[2020-11-22 07:12] LABS: HEMATOCRIT 34.7 % (35.4-49); HEMOGLOBIN 11.4 GM/dL (11.7-16.9); MCH 25.4 pg (25.7-33.7); MEAN PLT VOLUME 8.2 fl (7.5-11.1); PLATELET COUNT 195 K/MM3 (134-434); RBC 4.51 M/mm3 (4.00-5.60); RDW 16.4 % (11.9-15.9); WHITE BLOOD COUNT 16.4 K/mm3 (4.0-10.0)
[2020-11-22 07:31] LABS: ALBUMIN 3.2 g/dl (3.4-5.0); CALCIUM 8.2 mg/dL (8.5-10.1)
[2020-11-22 07:32] LABS: BLOOD UREA NITROGEN 23.6 mg/dL (7-18); MAGNESIUM 2.1 mg/dL (1.8-2.4)
[2020-11-22 07:35] LABS: CREATININE 1.6 mg/dL (0.55-1.3); PHOSPHOROUS 3.6 mg/dL (2.5-4.9)
[2020-11-22 07:36] LABS: BILIRUBIN,TOTAL 0.5 mg/dL (0.2-1); TOT PROT 6.4 g/dl (6.4-8.2)
[2020-11-22] MEDS: amLODIPine BESYLATE 5 MG TABLET (FP) PO SCH (09:28)
[2020-11-22] MEDS: METOPROLOL TARTRATE 50 MG TABLET (FP) PO SCH ×2 (09:28→21:17)
[2020-11-22] MEDS: hydrALAZINE HCL 50 MG TABLET (FP) PO SCH ×2 (09:29→21:17)
[2020-11-22] MEDS: VALSARTAN 160 MG TABLET PO SCH (09:29)
[2020-11-22] MEDS: levETIRAcetam 500 MG/5 ML INJECTION VIAL IVPB SCH ×2 (09:32→21:16)
[2020-11-22] MEDS: HEPARIN NA (PORCINE) 5,000 UNITS/ML 1ML VIAL SQ SCH (09:33)
[2020-11-22] MEDS: LACTATED RINGERS SOLUTION 1,000 ML IV SCH (17:12)
[2020-11-23] MEDS: LABETALOL HCL INJECTION 1,000 MG in SODIUM CHLORIDE 800 ML IV SCH ×3 (01:07→23:00)
[2020-11-23] MEDS: CEFAZOLIN 2 GM/D5W 2 GM/50 ML ML IVPB SCH ×4 (02:27→21:11)
[2020-11-23 07:11] LABS: BASO % 0.1 % (0-2.0); EOS % 0.2 % (0-4.5); HEMATOCRIT 32.9 % (35.4-49); HEMOGLOBIN 10.8 GM/dL (11.7-16.9); LYMPH % 5.7 % (8-40); MCH 25.2 pg (25.7-33.7); MCHC 32.6 g/dl (32.0-35.9); MEAN CELL VOLUME 77.3 fl (80-96); MEAN PLT VOLUME 8.7 fl (7.5-11.1); MONO % 6.9 % (3.8-10.2); NEUT % 87.1 % (42.8-82.8); PLATELET COUNT 172 K/MM3 (134-434); RBC 4.26 M/mm3 (4.00-5.60); RDW 16.5 % (11.9-15.9); WHITE BLOOD COUNT 13.8 K/mm3 (4.0-10.0)
[2020-11-23 07:35] LABS: ALBUMIN 2.9 g/dl (3.4-5.0); BLOOD UREA NITROGEN 28.8 mg/dL (7-18); CALCIUM 8.3 mg/dL (8.5-10.1); MAGNESIUM 2.5 mg/dL (1.8-2.4)
[2020-11-23 07:38] LABS: BILIRUBIN,TOTAL 0.4 mg/dL (0.2-1); CREATININE 1.4 mg/dL (0.55-1.3); PHOSPHOROUS 3.3 mg/dL (2.5-4.9)
[2020-11-23] MEDS: hydrALAZINE HCL 50 MG TABLET (FP) PO SCH (09:01)
[2020-11-23] MEDS: MULTIVITAMINS THER W-MINERALS COMBO TABLET (FP) PO SCH (09:02)
[2020-11-23] MEDS: METOPROLOL TARTRATE 50 MG TABLET (FP) PO SCH ×2 (09:02→21:11)
[2020-11-23] MEDS: amLODIPine BESYLATE 5 MG TABLET (FP) PO SCH (09:02)
[2020-11-23] MEDS: VALSARTAN 160 MG TABLET PO SCH (09:02)
[2020-11-23] MEDS: levETIRAcetam 500 MG/5 ML INJECTION VIAL IVPB SCH ×2 (09:07→21:11)
[2020-11-23] MEDS: LACTATED RINGERS SOLUTION 1,000 ML IV SCH ×2 (15:13→17:51)
[2020-11-23] MEDS ORDERED: LORazepam 2 MG/ML SDV VIAL IVPUSH ONE (16:23)
[2020-11-23] MEDS ORDERED: LORazepam 2 MG/ML SDV VIAL ONE ×2 (16:24)
[2020-11-23] MEDS: MORPHINE SULFATE 2 MG/ML VIAL IVPUSH PRN (21:12)
[2020-11-24] MEDS: CEFAZOLIN 2 GM/D5W 2 GM/50 ML ML IVPB SCH ×4 (02:21→21:54)
[2020-11-24 07:08] LABS: BASO % 0.2 % (0-2.0); EOS % 0.6 % (0-4.5); HEMATOCRIT 30.7 % (35.4-49); MCH 25.4 pg (25.7-33.7); MCHC 32.4 g/dl (32.0-35.9); MEAN CELL VOLUME 78.4 fl (80-96); MEAN PLT VOLUME 8.7 fl (7.5-11.1); NEUT % 83.2 % (42.8-82.8); PLATELET COUNT 150 K/MM3 (134-434); RBC 3.91 M/mm3 (4.00-5.60); RDW 16.7 % (11.9-15.9); WHITE BLOOD COUNT 12.1 K/mm3 (4.0-10.0)
[2020-11-24 07:41] LABS: ALBUMIN 2.5 g/dl (3.4-5.0); BLOOD UREA NITROGEN 30.8 mg/dL (7-18); MAGNESIUM 2.6 mg/dL (1.8-2.4)
[2020-11-24 07:43] LABS: CREATININE 1.2 mg/dL (0.55-1.3); PHOSPHOROUS 2.3 mg/dL (2.5-4.9)
[2020-11-24 07:44] LABS: BILIRUBIN,TOTAL 0.4 mg/dL (0.2-1); TOT PROT 5.5 g/dl (6.4-8.2)
[2020-11-24] MEDS: LABETALOL HCL INJECTION 1,000 MG in SODIUM CHLORIDE 800 ML IV SCH (09:08)
[2020-11-24] MEDS: MULTIVITAMINS THER W-MINERALS COMBO TABLET (FP) PO SCH (09:08)
[2020-11-24] MEDS: ASPIRIN 300 MG SUPP.RECT PR SCH (09:25)
[2020-11-24] MEDS: levETIRAcetam 500 MG/5 ML INJECTION VIAL IVPB SCH ×2 (09:26→23:51)
[2020-11-24] MEDS ORDERED: NICARDIPINE 25 MG in DEXTROSE 5%-WATER - 240 ML IVPB SCH (10:00)
[2020-11-24] MEDS ORDERED: SODIUM PHOSPHATE - 15 MM in DEXTROSE 5%-WATER - 250 ML IVPB ONE (10:30)
[2020-11-24] MEDS: LACTATED RINGERS SOLUTION 1,000 ML IV SCH (18:25)
[2020-11-25] MEDS ORDERED: WATER IVPB SCH (02:00)
[2020-11-25] MEDS ORDERED: NICARDIPINE IVPB SCH (02:00)
[2020-11-25] MEDS ORDERED: DEXTROSE 5% IVPB SCH (02:00)
[2020-11-25] MEDS ORDERED: ACETAMINOPHEN 1000 MG/100 ML VIAL (NON FORMULARY) IVPB ONE (02:39)
[2020-11-25] MEDS: CEFAZOLIN 2 GM/D5W 2 GM/50 ML ML IVPB SCH ×2 (03:37→09:45)
[2020-11-25 07:28] LABS: HEMOGLOBIN 10.1 GM/dL (11.7-16.9); MCH 25.5 pg (25.7-33.7); MCHC 32.7 g/dl (32.0-35.9); MEAN CELL VOLUME 78.1 fl (80-96); MEAN PLT VOLUME 9.1 fl (7.5-11.1); PLATELET COUNT 171 K/MM3 (134-434); RBC 3.97 M/mm3 (4.00-5.60); RDW 16.4 % (11.9-15.9); WHITE BLOOD COUNT 11.1 K/mm3 (4.0-10.0)
[2020-11-25 07:52] LABS: ALBUMIN 2.4 g/dl (3.4-5.0); BLOOD UREA NITROGEN 31.6 mg/dL (7-18); CALCIUM 7.5 mg/dL (8.5-10.1); MAGNESIUM 2.5 mg/dL (1.8-2.4)
[2020-11-25 07:54] LABS: CREATININE 1.1 mg/dL (0.55-1.3)
[2020-11-25 07:56] LABS: BILIRUBIN,TOTAL 0.6 mg/dL (0.2-1); PHOSPHOROUS 1.7 mg/dL (2.5-4.9); TOT PROT 5.3 g/dl (6.4-8.2)
[2020-11-25] MEDS: LACTATED RINGERS SOLUTION 1,000 ML IV SCH (08:50)
[2020-11-25] MEDS: ASPIRIN 300 MG SUPP.RECT PR SCH (09:46)
[2020-11-25] MEDS: levETIRAcetam 500 MG/5 ML INJECTION VIAL IVPB SCH ×2 (09:47→21:40)
[2020-11-25] MEDS: MULTIVITAMINS THER W-MINERALS COMBO TABLET (FP) PO SCH (09:48)
[2020-11-25] MEDS ORDERED: POTASSIUM PHOSPHATE 30 MM in DEXTROSE 5%-WATER - 250 ML IVPB ONE (10:00)
[2020-11-25] MEDS ORDERED: PT OWN MED DRAWER 7, Y5N ONE (11:50)
[2020-11-25] MEDS ORDERED: ACETAMINOPHEN INJECTION 100 ML IVPB ONE (13:12)
[2020-11-25] MEDS ORDERED: BISACODYL 10 MG SUPP.RECT PR ONE ×2 (13:45→18:15)
[2020-11-25] MEDS: PIPERACILLIN/TAZOB 3.375 GM 3.375 GM in DEXTROSE 5%-WATER - 50 ML IVPB SCH ×4 (16:50→17:16)
[2020-11-25] MEDS ORDERED: PIPERACILLIN/TAZOBACTAM 3.375 GM VIAL IVPB ONE (17:05)
[2020-11-25] MEDS ORDERED: DEXTROSE 5%-WATER - 50 ML IVPB ONE (17:05)
[2020-11-25 17:25] LABS: EPI CELLS 15 /uL (0-25.1); HYALINE CASTS 3 /uL (0-3.1); PH,URINE 5.5 (5.0-8.0); URINE APPEARANCE TURBID; URINE BACTERIA 48 /uL (0-1359); URINE BILIRUBIN NEGATIVE (NEGATIVE); URINE COLOR YELLOW; URINE GLUCOSE (UA) NEGATIVE (NEGATIVE); URINE KETONE NEGATIVE (NEGATIVE); URINE LEUK ESTERASE TRACE (NEGATIVE); URINE NITRITE NEGATIVE (NEGATIVE); URINE PROTEIN 2+ (NEGATIVE); URINE RBC 2940 /uL (0-23.9); URINE UROBILINOGEN 0.2 mg/dL (0.2-1.0); URINE WBC 48 /uL (0-25.8)
[2020-11-25] MEDS: METOPROLOL TARTRATE 5 MG/5 ML VIAL IVPUSH PRN (22:48)
[2020-11-26] MEDS: NITROGLYCERIN 2% OINTMENT - 1GM PACKET TD PRN (01:33)
[2020-11-26] MEDS ORDERED: PIPERACILLIN/TAZOBACTAM 3.375 GM VIAL IVPB ONE ×2 (02:51→09:35)
[2020-11-26] MEDS ORDERED: DEXTROSE 5%-WATER - 50 ML IVPB ONE ×2 (02:51→09:36)
[2020-11-26] MEDS: PIPERACILLIN/TAZOB 3.375 GM 3.375 GM in DEXTROSE 5%-WATER - 50 ML IVPB SCH (02:56)
[2020-11-26] MEDS: ACETAMINOPHEN 1000 MG/100 ML VIAL (NON FORMULARY) IVPB PRN ×2 (03:32→18:02)
[2020-11-26] MEDS: METOPROLOL TARTRATE 5 MG/5 ML VIAL IVPUSH PRN ×2 (05:02→18:04)
[2020-11-26] MEDS: NICARDIPINE 25 MG in DEXTROSE 5%-WATER - 240 ML IVPB SCH ×3 (07:00→12:30)
[2020-11-26 07:01] LABS: BASO % 0.4 % (0-2.0); EOS % 2.3 % (0-4.5); HEMATOCRIT 31.1 % (35.4-49); HEMOGLOBIN 9.9 GM/dL (11.7-16.9); LYMPH % 9.4 % (8-40); MCH 25.3 pg (25.7-33.7); MCHC 31.9 g/dl (32.0-35.9); MEAN CELL VOLUME 79.1 fl (80-96); MEAN PLT VOLUME 8.6 fl (7.5-11.1); MONO % 6.8 % (3.8-10.2); NEUT % 81.1 % (42.8-82.8); PLATELET COUNT 232 K/MM3 (134-434); RBC 3.93 M/mm3 (4.00-5.60); RDW 16.3 % (11.9-15.9); WHITE BLOOD COUNT 13.9 K/mm3 (4.0-10.0)
[2020-11-26 07:22] LABS: CALCIUM 7.4 mg/dL (8.5-10.1)
[2020-11-26 07:23] LABS: ALBUMIN 2.2 g/dl (3.4-5.0); BLOOD UREA NITROGEN 31.8 mg/dL (7-18); MAGNESIUM 2.2 mg/dL (1.8-2.4)
[2020-11-26 07:26] LABS: PHOSPHOROUS 2.6 mg/dL (2.5-4.9)
[2020-11-26 07:27] LABS: BILIRUBIN,TOTAL 1.2 mg/dL (0.2-1); TOT PROT 5.1 g/dl (6.4-8.2)
[2020-11-26] MEDS: KCL 10 MEQ IVPB 10 MEQ/100 ML INFUS.BAG IVPB SCH ×3 (09:46→10:47)
[2020-11-26] MEDS: levETIRAcetam 500 MG/5 ML INJECTION VIAL IVPB SCH ×2 (09:46→21:45)
[2020-11-26] MEDS: LACTATED RINGERS SOLUTION 1,000 ML IV SCH (09:46)
[2020-11-26] MEDS: ASPIRIN 300 MG SUPP.RECT PR SCH (09:46)
[2020-11-26] MEDS ORDERED: PIPERACILLIN/TAZOB 3.375 GM 3.375 GM in DEXTROSE 5%-WATER - 50 ML IVPB SCH (10:00)
[2020-11-26] MEDS: MULTIVITAMINS THER W-MINERALS COMBO TABLET (FP) PO SCH (10:31)
[2020-11-26] MEDS: POTASSIUM CHLORIDE 40 MEQ in AMINO ACIDS 4.25%/D5W 1,000 ML IV SCH (12:47)
[2020-11-26] MEDS ORDERED: WATER IVPB SCH (16:09)
[2020-11-26] MEDS ORDERED: NICARDIPINE IVPB SCH (16:09)
[2020-11-26] MEDS ORDERED: DEXTROSE 5% IVPB SCH (16:09)
[2020-11-26] MEDS ORDERED: PIPERACILLIN/TAZOBACTAM 4.5 GM VIAL IVPB ONE (16:30)
[2020-11-26] MEDS ORDERED: DEXTROSE 5%-WATER 100 ML IVPB ONE (16:30)
[2020-11-26] MEDS ORDERED: PT OWN MED DRAWER 7, Y5N ONE (16:33)
[2020-11-26] MEDS: PIPERACILLIN/TAZOB 4.5 GM 4.5 GM in DEXTROSE 5%-WATER 100 ML IVPB SCH (17:35)
[2020-11-27] MEDS ORDERED: DEXTROSE 5%-WATER 100 ML IVPB ONE ×3 (02:05→17:33)
[2020-11-27] MEDS ORDERED: PIPERACILLIN/TAZOBACTAM 4.5 GM VIAL IVPB ONE ×3 (02:05→17:33)
[2020-11-27] MEDS: PIPERACILLIN/TAZOB 4.5 GM 4.5 GM in DEXTROSE 5%-WATER 100 ML IVPB SCH ×3 (02:10→17:41)
[2020-11-27] MEDS: NITROGLYCERIN 2% OINTMENT - 1GM PACKET TD PRN (04:15)
[2020-11-27 07:16] LABS: BASO % 0.6 % (0-2.0); EOS % 5.4 % (0-4.5); HEMATOCRIT 29.6 % (35.4-49); HEMOGLOBIN 9.7 GM/dL (11.7-16.9); LYMPH % 10.4 % (8-40); MCH 25.2 pg (25.7-33.7); MCHC 32.7 g/dl (32.0-35.9); MEAN CELL VOLUME 77.3 fl (80-96); MEAN PLT VOLUME 7.8 fl (7.5-11.1); MONO % 8.4 % (3.8-10.2); NEUT % 75.2 % (42.8-82.8); PLATELET COUNT 248 K/MM3 (134-434); RBC 3.83 M/mm3 (4.00-5.60); RDW 16.1 % (11.9-15.9); WHITE BLOOD COUNT 12.3 K/mm3 (4.0-10.0)
[2020-11-27 07:46] LABS: ALBUMIN 2.3 g/dl (3.4-5.0); CALCIUM 7.9 mg/dL (8.5-10.1)
[2020-11-27 07:47] LABS: BLOOD UREA NITROGEN 27.8 mg/dL (7-18)
[2020-11-27 07:49] LABS: MAGNESIUM 2.3 mg/dL (1.8-2.4)
[2020-11-27 07:50] LABS: BILIRUBIN,TOTAL 0.6 mg/dL (0.2-1); PHOSPHOROUS 2.3 mg/dL (2.5-4.9); TOT PROT 5.4 g/dl (6.4-8.2)
[2020-11-27] MEDS: ASPIRIN 300 MG SUPP.RECT PR SCH (10:22)
[2020-11-27] MEDS: levETIRAcetam 500 MG/5 ML INJECTION VIAL IVPB SCH ×2 (10:22→21:40)
[2020-11-27] MEDS: MULTIVITAMINS THER W-MINERALS COMBO TABLET (FP) PO SCH (10:22)
[2020-11-27] MEDS ORDERED: niCARdipine HCL 25 MG/10 ML AMPUL IVPB ONE ×3 (11:26→17:45)
[2020-11-27] MEDS ORDERED: FUROSEMIDE 40 MG/4 ML INJECTABLE VIAL IVPUSH ONE (11:28)
[2020-11-27] MEDS ORDERED: LABETALOL HCL 100 MG TABLET (FP) PO PRN (11:39)
[2020-11-27] MEDS ORDERED: LABETALOL HCL 200 MG TABLET (FP) PO SCH (12:00)
[2020-11-27] MEDS: POTASSIUM CHLORIDE 40 MEQ in AMINO ACIDS 4.25%/D5W 1,000 ML IV SCH (13:29)
[2020-11-27] MEDS ORDERED: NICARDIPINE 25 MG in DEXTROSE 5%-WATER - 240 ML IVPB SCH (14:45)
[2020-11-27] MEDS ORDERED: hydrALAZINE HCL 20 MG/ML VIAL IVPUSH PRN (18:00)
[2020-11-28] MEDS: METOPROLOL TARTRATE 5 MG/5 ML VIAL IVPUSH PRN (01:20)
[2020-11-28] MEDS ORDERED: ACETAMINOPHEN 500 MG TABLET (FP) PO PRN (01:38)
[2020-11-28] MEDS: ACETAMINOPHEN 1000 MG/100 ML VIAL (NON FORMULARY) IVPB PRN ×2 (01:59→19:02)
[2020-11-28] MEDS: PIPERACILLIN/TAZOB 4.5 GM 4.5 GM in DEXTROSE 5%-WATER 100 ML IVPB SCH ×3 (02:42→17:30)
[2020-11-28] MEDS ORDERED: DEXTROSE 5%-WATER 100 ML IVPB ONE ×4 (02:42→20:38)
[2020-11-28] MEDS ORDERED: PIPERACILLIN/TAZOBACTAM 4.5 GM VIAL IVPB ONE ×4 (02:42→20:38)
[2020-11-28 07:15] LABS: HEMATOCRIT 28.4 % (35.4-49); HEMOGLOBIN 9.3 GM/dL (11.7-16.9); MCH 25.4 pg (25.7-33.7); MCHC 32.7 g/dl (32.0-35.9); MEAN CELL VOLUME 77.6 fl (80-96); MEAN PLT VOLUME 7.7 fl (7.5-11.1); PLATELET COUNT 266 K/MM3 (134-434); RBC 3.66 M/mm3 (4.00-5.60); RDW 15.8 % (11.9-15.9); WHITE BLOOD COUNT 10.3 K/mm3 (4.0-10.0)
[2020-11-28 07:34] LABS: ALBUMIN 2.3 g/dl (3.4-5.0)
[2020-11-28 07:36] LABS: PHOSPHOROUS 2.9 mg/dL (2.5-4.9)
[2020-11-28 07:37] LABS: CREATININE 0.9 mg/dL (0.55-1.3)
[2020-11-28 07:38] LABS: BILIRUBIN,TOTAL 0.6 mg/dL (0.2-1)
[2020-11-28 07:39] LABS: TOT PROT 5.5 g/dl (6.4-8.2)
[2020-11-28] MEDS: NICARDIPINE 25 MG in DEXTROSE 5%-WATER - 240 ML IVPB SCH ×3 (07:59→23:00)
[2020-11-28] MEDS: levETIRAcetam 500 MG/5 ML INJECTION VIAL IVPB SCH (09:03)
[2020-11-28] MEDS: ASPIRIN 300 MG SUPP.RECT PR SCH (09:03)
[2020-11-28] MEDS: MULTIVITAMINS THER W-MINERALS COMBO TABLET (FP) PO SCH (09:03)
[2020-11-28] MEDS ORDERED: FUROSEMIDE 40 MG/4 ML INJECTABLE VIAL IVPUSH ONE (10:03)
[2020-11-28] MEDS: POTASSIUM CHLORIDE 40 MEQ in AMINO ACIDS 4.25%/D5W 1,000 ML IV SCH ×2 (10:32→21:21)
[2020-11-28] MEDS: LABETALOL HCL 5 MG/1 ML (100MG/20 ML VIAL) IVPB SCH ×3 (10:34→21:20)
[2020-11-28] MEDS ORDERED: LABETALOL HCL 5 MG/1 ML (100MG/20 ML VIAL) IVPB PRN (12:00)
[2020-11-28] MEDS: LABETALOL HCL 5 MG/1 ML (100MG/20 ML VIAL) IVPB PRN (12:45)
[2020-11-28] MEDS: PIPERACILLIN/TAZOB 3.375 GM 3.375 GM in DEXTROSE 5%-WATER - 50 ML IVPB SCH (15:45)
[2020-11-28] MEDS ORDERED: PT OWN MED DRAWER 7, Y5N ONE (20:38)
[2020-11-28] MEDS: ACETAMINOPHEN 325 MG TABLET (FP) PO PRN (20:42)
[2020-11-28] MEDS: Lacosamide 200 MG/20 ML VIAL IVPB SCH (21:21)
[2020-11-29] MEDS: PIPERACILLIN/TAZOB 4.5 GM 4.5 GM in DEXTROSE 5%-WATER 100 ML IVPB SCH ×3 (01:00→18:56)
[2020-11-29] MEDS: ACETAMINOPHEN 1000 MG/100 ML VIAL (NON FORMULARY) IVPB PRN (01:11)
[2020-11-29] MEDS: NICARDIPINE 25 MG in DEXTROSE 5%-WATER - 240 ML IVPB SCH ×6 (03:30→11:46)
[2020-11-29] MEDS: LABETALOL HCL 5 MG/1 ML (100MG/20 ML VIAL) IVPB SCH ×4 (03:38→21:29)
[2020-11-29] MEDS ORDERED: SODIUM BICARBONATE 8.4% - 50 ML ONE (03:40)
[2020-11-29] MEDS: POTASSIUM CHLORIDE 40 MEQ in AMINO ACIDS 4.25%/D5W 1,000 ML IV SCH ×2 (05:00→10:29)
[2020-11-29 06:55] LABS: BASO % 0.7 % (0-2.0); EOS % 4.3 % (0-4.5); LYMPH % 10.5 % (8-40); MCHC 33.2 g/dl (32.0-35.9); MEAN CELL VOLUME 78.3 fl (80-96); MEAN PLT VOLUME 7.7 fl (7.5-11.1); MONO % 8.6 % (3.8-10.2); NEUT % 75.9 % (42.8-82.8); PLATELET COUNT 215 K/MM3 (134-434); RBC 3.06 M/mm3 (4.00-5.60); RDW 16.2 % (11.9-15.9); WHITE BLOOD COUNT 7.4 K/mm3 (4.0-10.0)
[2020-11-29 07:01] LABS: CALCIUM 7.5 mg/dL (8.5-10.1)
[2020-11-29 07:02] LABS: ALBUMIN 2.1 g/dl (3.4-5.0); BLOOD UREA NITROGEN 38.6 mg/dL (7-18); MAGNESIUM 1.8 mg/dL (1.8-2.4)
[2020-11-29 07:05] LABS: BILIRUBIN,TOTAL 0.5 mg/dL (0.2-1); CREATININE 1.1 mg/dL (0.55-1.3); TOT PROT 4.9 g/dl (6.4-8.2)
[2020-11-29 07:06] LABS: PHOSPHOROUS 3.5 mg/dL (2.5-4.9)
[2020-11-29] MEDS: KCL 10 MEQ IVPB 10 MEQ/100 ML INFUS.BAG IVPB SCH ×3 (08:05→11:45)
[2020-11-29] MEDS ORDERED: DEXTROSE 5%-WATER 100 ML IVPB ONE ×3 (08:17→21:27)
[2020-11-29] MEDS ORDERED: PIPERACILLIN/TAZOBACTAM 4.5 GM VIAL IVPB ONE ×3 (08:17→21:27)
[2020-11-29] MEDS: MULTIVITAMINS THER W-MINERALS COMBO TABLET (FP) PO SCH (09:34)
[2020-11-29] MEDS: Lacosamide 200 MG/20 ML VIAL IVPB SCH ×2 (10:29→21:29)
[2020-11-29] MEDS: ASPIRIN 300 MG SUPP.RECT PR SCH (10:29)
[2020-11-29] MEDS ORDERED: PT OWN MED DRAWER 7, Y5N ONE (10:55)
[2020-11-29] MEDS ORDERED: ACETAMINOPHEN 1000 MG/100 ML VIAL (NON FORMULARY) IVPB PRN (11:25)
[2020-11-29] MEDS ORDERED: LIDOCAINE 1%/EPI 1:100000 (50 ML MULTI DOSE VIAL) ONE (13:53)
[2020-11-29] MEDS ORDERED: GENTAMICIN SO4 80 MG/2 ML VIAL ONE (13:53)
[2020-11-29] MEDS ORDERED: THROMBIN (BOVINE) 20,000 UNIT VIAL TP ONE (13:57)
[2020-11-29] MEDS ORDERED: fentaNYL CITRATE 250 MCG/5 ML VIAL ONE (14:25)
[2020-11-29] MEDS ORDERED: EPHEDRINE SULFATE/0.9% NACL/PF 50 MG/10 ML SYRINGE NR ONE ×3 (14:26→16:45)
[2020-11-29] MEDS ORDERED: ePHEDrine SULFATE 50 MG/1 ML AMPULE ONE (14:26)
[2020-11-29] MEDS ORDERED: ROCURONIUM BROMIDE 100 MG/10 ML VIAL ONE (14:26)
[2020-11-29] MEDS ORDERED: PROPOFOL 20 ML ONE ×6 (14:26→16:22)
[2020-11-29] MEDS ORDERED: VANCOMYCIN 1,000 MG VIAL (RESTRICTED TO ID ONLY) IVPB ONE (15:15)
[2020-11-29] MEDS ORDERED: ceFAZolin SODIUM 1 GM VIAL IVPB ONE (15:20)
[2020-11-29] MEDS ORDERED: ceFAZolin SODIUM 1 GM VIAL ONE (15:24)
[2020-11-29] MEDS ORDERED: VANCOMYCIN 1,000 MG VIAL (RESTRICTED TO ID ONLY) ONE (15:24)
[2020-11-29] MEDS ORDERED: GENTAMICIN SO4 80 MG/2 ML VIAL IVPB ONE (15:55)
[2020-11-29] MEDS ORDERED: HYDROGEN PEROXIDE 473 ML PO ONE (15:55)
[2020-11-29] MEDS ORDERED: BACITRACIN 50,000 UNITS VIAL TP ONE (15:55)
[2020-11-29] MEDS ORDERED: FENTANYL NS IVPB 500 MCG/100 ML BAG IVPB ONE (17:28)
[2020-11-29] MEDS ORDERED: MIDAZOLAM 100 MG/100 ML MG IVPB ONE (17:28)
[2020-11-29] MEDS ORDERED: MIDAZOLAM HCL 2 MG/2 ML SINGLE DOSE VIAL IVPUSH ONE (17:31)
[2020-11-29] MEDS: MIDAZOLAM 100 MG/100 ML MG IVPB SCH ×2 (18:10→21:29)
[2020-11-29] MEDS: FENTANYL NS IVPB 500 MCG/100 ML BAG IVPB SCH ×2 (18:10→21:29)
[2020-11-30] MEDS ORDERED: DEXTROSE 5%-WATER 100 ML IVPB ONE ×2 (00:42→09:45)
[2020-11-30] MEDS ORDERED: PIPERACILLIN/TAZOBACTAM 4.5 GM VIAL IVPB ONE ×2 (00:42→09:44)
[2020-11-30] MEDS: PIPERACILLIN/TAZOB 4.5 GM 4.5 GM in DEXTROSE 5%-WATER 100 ML IVPB SCH (01:05)
[2020-11-30] MEDS: LABETALOL HCL 5 MG/1 ML (100MG/20 ML VIAL) IVPB SCH ×4 (04:03→21:23)
[2020-11-30 07:20] LABS: BASO % 0.7 % (0-2.0); EOS % 6.9 % (0-4.5); HEMATOCRIT 20.3 % (35.4-49); MCH 25.6 pg (25.7-33.7); MCHC 33.3 g/dl (32.0-35.9); MEAN CELL VOLUME 76.9 fl (80-96); MONO % 10.1 % (3.8-10.2); NEUT % 65.3 % (42.8-82.8); PLATELET COUNT 184 K/MM3 (134-434); RBC 2.64 M/mm3 (4.00-5.60); RDW 16.5 % (11.9-15.9); WHITE BLOOD COUNT 7.9 K/mm3 (4.0-10.0)
[2020-11-30 07:21] LABS: CALCIUM 7.6 mg/dL (8.5-10.1)
[2020-11-30 07:22] LABS: BLOOD UREA NITROGEN 42.4 mg/dL (7-18)
[2020-11-30 07:24] LABS: CREATININE 1.6 mg/dL (0.55-1.3)
[2020-11-30 07:25] LABS: PHOSPHOROUS 3.8 mg/dL (2.5-4.9)
[2020-11-30 07:26] LABS: BILIRUBIN,TOTAL 0.4 mg/dL (0.2-1); TOT PROT 4.7 g/dl (6.4-8.2)
[2020-11-30 08:16] LABS: HEMOGLOBIN 6.8 GM/dL (11.7-16.9)
[2020-11-30 09:53] LABS: MCH 25.7 pg (25.7-33.7); MCHC 33.5 g/dl (32.0-35.9); MEAN CELL VOLUME 76.8 fl (80-96); MEAN PLT VOLUME 7.8 fl (7.5-11.1); PLATELET COUNT 185 K/MM3 (134-434); RBC 2.61 M/mm3 (4.00-5.60); RDW 16.2 % (11.9-15.9); WHITE BLOOD COUNT 7.7 K/mm3 (4.0-10.0)
[2020-11-30 09:58] LABS: HEMOGLOBIN 6.7 GM/dL (11.7-16.9)
[2020-11-30] MEDS: Lacosamide 200 MG/20 ML VIAL IVPB SCH ×2 (10:00→21:23)
[2020-11-30] MEDS: NICARDIPINE 25 MG in DEXTROSE 5%-WATER - 240 ML IVPB SCH (10:01)
[2020-11-30] MEDS: MULTIVITAMINS THER W-MINERALS COMBO TABLET (FP) PO SCH (10:02)
[2020-11-30 11:57] LABS: ALBUMIN 1.9 g/dl (3.4-5.0)
[2020-11-30 12:00] LABS: BILIRUBIN,DIRECT 0.1 mg/dL (0.0-0.2); CREATININE 1.5 mg/dL (0.55-1.3)
[2020-11-30 12:02] LABS: BILIRUBIN,TOTAL 0.4 mg/dL (0.2-1); TOT PROT 4.8 g/dl (6.4-8.2)
[2020-11-30] MEDS: PANTOPRAZOLE SODIUM 40 MG VIAL IVPUSH SCH ×2 (13:42→21:23)
[2020-11-30] MEDS ORDERED: ACETAMINOPHEN 1000 MG/100 ML VIAL (NON FORMULARY) IVPB ONE (14:22)
[2020-11-30] MEDS ORDERED: DEXTROSE 5%-WATER - 50 ML IVPB ONE ×3 (15:36→21:21)
[2020-11-30] MEDS ORDERED: PIPERACILLIN/TAZOBACTAM 3.375 GM VIAL IVPB ONE ×3 (15:36→21:21)
[2020-11-30 15:54] LABS: CSF APPEARANCE CLEAR; CSF WBC 0
[2020-11-30] MEDS: MIDAZOLAM 100 MG/100 ML MG IVPB SCH (16:30)
[2020-11-30] MEDS: FENTANYL NS IVPB 500 MCG/100 ML BAG IVPB SCH ×2 (16:31→21:16)
[2020-11-30 16:33] LABS: BF GLUCOSE (CSF ONLY) 49 mg/dL (40-70)
[2020-11-30 18:37] LABS: CSF COLOR COLORLESS
[2020-11-30] MEDS: PIPERACILLIN/TAZOB 3.375 GM 3.375 GM in DEXTROSE 5%-WATER - 50 ML IVPB SCH (18:43)
[2020-11-30 21:02] LABS: MCH 26.1 pg (25.7-33.7); MCHC 33.2 g/dl (32.0-35.9); MEAN CELL VOLUME 78.5 fl (80-96); PLATELET COUNT 177 K/MM3 (134-434); RBC 3.05 M/mm3 (4.00-5.60); RDW 16.7 % (11.9-15.9); WHITE BLOOD COUNT 8.1 K/mm3 (4.0-10.0)
[2020-12-01] MEDS: PIPERACILLIN/TAZOB 3.375 GM 3.375 GM in DEXTROSE 5%-WATER - 50 ML IVPB SCH ×3 (01:08→17:30)
[2020-12-01] MEDS: LABETALOL HCL 5 MG/1 ML (100MG/20 ML VIAL) IVPB PRN ×2 (02:36→17:36)
[2020-12-01] MEDS ORDERED: chlorproMAZINE HCL 25 MG/1 ML AMP IM ONE ×2 (03:31→23:25)
[2020-12-01 04:27] LABS: BASO % 1.1 % (0-2.0); EOS % 5.5 % (0-4.5); HEMATOCRIT 24.4 % (35.4-49); HEMOGLOBIN 8.1 GM/dL (11.7-16.9); LYMPH % 15.9 % (8-40); MCH 25.8 pg (25.7-33.7); MCHC 33.1 g/dl (32.0-35.9); MEAN CELL VOLUME 77.9 fl (80-96); MEAN PLT VOLUME 7.6 fl (7.5-11.1); MONO % 10.3 % (3.8-10.2); NEUT % 67.2 % (42.8-82.8); PLATELET COUNT 171 K/MM3 (134-434); RBC 3.13 M/mm3 (4.00-5.60); RDW 16.6 % (11.9-15.9); WHITE BLOOD COUNT 8.3 K/mm3 (4.0-10.0)
[2020-12-01 04:45] LABS: CALCIUM 8.1 mg/dL (8.5-10.1)
[2020-12-01 04:46] LABS: BLOOD UREA NITROGEN 37.3 mg/dL (7-18); MAGNESIUM 2.4 mg/dL (1.8-2.4)
[2020-12-01 04:49] LABS: CREATININE 1.4 mg/dL (0.55-1.3); PHOSPHOROUS 3.8 mg/dL (2.5-4.9)
[2020-12-01] MEDS: LABETALOL HCL 5 MG/1 ML (100MG/20 ML VIAL) IVPB SCH ×3 (05:27→21:14)
[2020-12-01] MEDS: FENTANYL NS IVPB 500 MCG/100 ML BAG IVPB SCH ×3 (05:28→17:31)
[2020-12-01] MEDS: MIDAZOLAM 100 MG/100 ML MG IVPB SCH ×3 (05:29→17:31)
[2020-12-01] MEDS: NICARDIPINE 25 MG in DEXTROSE 5%-WATER - 240 ML IVPB SCH (07:00)
[2020-12-01] MEDS ORDERED: PIPERACILLIN/TAZOBACTAM 3.375 GM VIAL IVPB ONE ×3 (09:22→20:39)
[2020-12-01] MEDS ORDERED: DEXTROSE 5%-WATER - 50 ML IVPB ONE ×3 (09:22→20:39)
[2020-12-01] MEDS: PANTOPRAZOLE SODIUM 40 MG VIAL IVPUSH SCH (09:27)
[2020-12-01] MEDS: Lacosamide 200 MG/20 ML VIAL IVPB SCH ×2 (09:40→21:15)
[2020-12-01 15:19] LABS: ARTERIAL BLOOD GAS BASE EXCESS -1.2 mmol/L (-2-2); ARTERIAL BLOOD GAS PO2 106.3 mmHg (80-100); ARTERIAL BLOOD GAS pH 7.426 (7.350-7.450)
[2020-12-01 15:22] LABS: ALLENS TEST POSITIVE
[2020-12-01] MEDS: MULTIVITAMINS THER W-MINERALS COMBO TABLET (FP) PO SCH (17:23)
[2020-12-01] MEDS ORDERED: PT OWN MED DRAWER 7, Y5N ONE (17:26)
[2020-12-01] MEDS ORDERED: chlorproMAZINE HCL 25 MG TABLET PO ONE (17:45)
[2020-12-01] MEDS ORDERED: ARTIFICIAL TEARS (POLYVINYL ALCOHOL) OPTH DROPS OU PRN (21:12)
[2020-12-01] MEDS ORDERED: ELECTROLYTE-148 SOLN 500 ML IV ONE (22:34)
[2020-12-02] MEDS: LABETALOL HCL 5 MG/1 ML (100MG/20 ML VIAL) IVPB PRN (01:58)
[2020-12-02] MEDS: PIPERACILLIN/TAZOB 3.375 GM 3.375 GM in DEXTROSE 5%-WATER - 50 ML IVPB SCH ×3 (03:53→18:26)
[2020-12-02] MEDS: LABETALOL HCL 5 MG/1 ML (100MG/20 ML VIAL) IVPB SCH ×4 (03:53→22:00)
[2020-12-02] MEDS: NICARDIPINE 25 MG in DEXTROSE 5%-WATER - 240 ML IVPB SCH ×3 (06:57→19:30)
[2020-12-02 07:36] LABS: BASO % 0.5 % (0-2.0); HEMATOCRIT 22.8 % (35.4-49); HEMOGLOBIN 7.6 GM/dL (11.7-16.9); MCHC 33.2 g/dl (32.0-35.9); MEAN CELL VOLUME 78.4 fl (80-96); MEAN PLT VOLUME 7.8 fl (7.5-11.1); MONO % 9.3 % (3.8-10.2); NEUT % 69.2 % (42.8-82.8); PLATELET COUNT 171 K/MM3 (134-434); RBC 2.91 M/mm3 (4.00-5.60); RDW 16.9 % (11.9-15.9); WHITE BLOOD COUNT 7.5 K/mm3 (4.0-10.0)
[2020-12-02 07:53] LABS: CALCIUM 7.6 mg/dL (8.5-10.1)
[2020-12-02 07:54] LABS: MAGNESIUM 2.7 mg/dL (1.8-2.4)
[2020-12-02 07:57] LABS: CREATININE 1.2 mg/dL (0.55-1.3); PHOSPHOROUS 4.2 mg/dL (2.5-4.9)
[2020-12-02 07:58] LABS: BILIRUBIN,TOTAL 0.4 mg/dL (0.2-1); TOT PROT 5.1 g/dl (6.4-8.2)
[2020-12-02] MEDS ORDERED: PIPERACILLIN/TAZOBACTAM 3.375 GM VIAL IVPB ONE ×3 (08:50→22:10)
[2020-12-02] MEDS ORDERED: DEXTROSE 5%-WATER - 50 ML IVPB ONE ×3 (08:50→22:10)
[2020-12-02] MEDS: Lacosamide 200 MG/20 ML VIAL IVPB SCH ×2 (09:18→22:00)
[2020-12-02] MEDS: FENTANYL NS IVPB 500 MCG/100 ML BAG IVPB SCH ×3 (09:18→20:00)
[2020-12-02] MEDS: PANTOPRAZOLE SODIUM 40 MG VIAL IVPUSH SCH (09:18)
[2020-12-02] MEDS: MULTIVITAMINS THER W-MINERALS COMBO TABLET (FP) PO SCH (09:18)
[2020-12-02] MEDS: AMINO ACIDS/PROTEIN HYDROLYS 30 ML LIQUID.PKT NGT SCH (11:37)
[2020-12-02] MEDS: THIAMINE HCL 200 MG/2 ML VIAL IVPB SCH (15:37)
[2020-12-02] MEDS: MIDAZOLAM 100 MG/100 ML MG IVPB SCH ×2 (18:26→20:00)
[2020-12-02] MEDS ORDERED: niCARdipine HCL 25 MG/10 ML AMPUL IVPB ONE (19:36)
[2020-12-02] MEDS: PROPOFOL 1,000,000 MCG/100 ML VIAL IVPB SCH (21:00)
[2020-12-02 21:22] LABS: HEMATOCRIT 26.8 % (35.4-49); HEMOGLOBIN 8.6 GM/dL (11.7-16.9); MCH 25.5 pg (25.7-33.7); MEAN CELL VOLUME 79.7 fl (80-96); MEAN PLT VOLUME 8.3 fl (7.5-11.1); PLATELET COUNT 216 K/MM3 (134-434); RBC 3.37 M/mm3 (4.00-5.60); RDW 16.5 % (11.9-15.9); WHITE BLOOD COUNT 12.4 K/mm3 (4.0-10.0)
[2020-12-02] MEDS ORDERED: NITROGLYCERIN 2% OINTMENT - 1GM PACKET TD PRN ×2 (22:33→22:35)
[2020-12-02] MEDS ORDERED: ONDANSETRON 4 MG/2 ML VIAL IVPUSH PRN (22:33)
[2020-12-03] MEDS: PIPERACILLIN/TAZOB 3.375 GM 3.375 GM in DEXTROSE 5%-WATER - 50 ML IVPB SCH ×3 (02:09→19:19)
[2020-12-03] MEDS: LABETALOL HCL 5 MG/1 ML (100MG/20 ML VIAL) IVPB SCH ×4 (04:00→21:23)
[2020-12-03 07:08] LABS: BASO % 0.6 % (0-2.0); EOS % 2.3 % (0-4.5); HEMATOCRIT 25.9 % (35.4-49); HEMOGLOBIN 8.4 GM/dL (11.7-16.9); MCH 25.6 pg (25.7-33.7); MCHC 32.4 g/dl (32.0-35.9); MEAN CELL VOLUME 78.9 fl (80-96); MEAN PLT VOLUME 8.2 fl (7.5-11.1); MONO % 6.4 % (3.8-10.2); NEUT % 81.7 % (42.8-82.8); PLATELET COUNT 229 K/MM3 (134-434); RBC 3.28 M/mm3 (4.00-5.60); RDW 16.8 % (11.9-15.9); WHITE BLOOD COUNT 12.4 K/mm3 (4.0-10.0)
[2020-12-03 07:23] LABS: BLOOD UREA NITROGEN 45.2 mg/dL (7-18); CALCIUM 8.5 mg/dL (8.5-10.1)
[2020-12-03 07:27] LABS: CREATININE 1.8 mg/dL (0.55-1.3); PHOSPHOROUS 5.4 mg/dL (2.5-4.9)
[2020-12-03 07:28] LABS: BILIRUBIN,TOTAL 0.4 mg/dL (0.2-1); TOT PROT 5.8 g/dl (6.4-8.2)
[2020-12-03] MEDS ORDERED: PIPERACILLIN/TAZOBACTAM 3.375 GM VIAL IVPB ONE ×3 (09:16→21:15)
[2020-12-03] MEDS ORDERED: DEXTROSE 5%-WATER - 50 ML IVPB ONE ×3 (09:17→21:15)
[2020-12-03] MEDS ORDERED: niCARdipine HCL 25 MG/10 ML AMPUL IVPB ONE (09:48)
[2020-12-03] MEDS ORDERED: DEXMEDETOMIDINE IN 0.9 % NACL 200 MCG/50 ML EACH IVPB SCH (10:15)
[2020-12-03] MEDS ORDERED: DEXMEDETOMIDINE IVPB SCH (10:18)
[2020-12-03] MEDS ORDERED: NACL IVPB SCH (10:18)
[2020-12-03] MEDS ORDERED: DEXMEDETOMIDINE IN 0.9 % NACL 400 MCG/100 ML VIAL IVPB SCH (10:26)
[2020-12-03] MEDS: THIAMINE HCL 200 MG/2 ML VIAL IVPB SCH (11:13)
[2020-12-03] MEDS: AMINO ACIDS/PROTEIN HYDROLYS 30 ML LIQUID.PKT NGT SCH (11:13)
[2020-12-03] MEDS: PANTOPRAZOLE SODIUM 40 MG VIAL IVPUSH SCH (11:13)
[2020-12-03] MEDS: MULTIVITAMINS THER W-MINERALS COMBO TABLET (FP) PO SCH (11:13)
[2020-12-03] MEDS: Lacosamide 200 MG/20 ML VIAL IVPB SCH ×2 (11:13→21:23)
[2020-12-03] MEDS ORDERED: FENTANYL IVPB 500 MCG/100 ML BAG IVPB ONE (12:20)
[2020-12-03] MEDS ORDERED: ACETAMINOPHEN 1000 MG/100 ML VIAL (NON FORMULARY) IVPB PRN (12:31)
[2020-12-03] MEDS ORDERED: SODIUM CHLORIDE 500 ML IV STA (13:58)
[2020-12-03] MEDS ORDERED: SODIUM CHLORIDE 0.45% 1,000 ML IV SCH (15:15)
[2020-12-03 18:41] LABS: EPI CELLS >36 /uL (0-25.1); HYALINE CASTS 33 /uL (0-3.1); PH,URINE 5.5 (5.0-8.0); URINE APPEARANCE TURBID; URINE BACTERIA 60 /uL (0-1359); URINE BILIRUBIN NEGATIVE (NEGATIVE); URINE COLOR ORANGE; URINE GLUCOSE (UA) NEGATIVE (NEGATIVE); URINE KETONE NEGATIVE (NEGATIVE); URINE LEUK ESTERASE 1+ (NEGATIVE); URINE NITRITE NEGATIVE (NEGATIVE); URINE PROTEIN 3+ (NEGATIVE); URINE RBC 16493 /uL (0-23.9); URINE UROBILINOGEN 0.2 mg/dL (0.2-1.0); URINE WBC 200 /uL (0-25.8)
[2020-12-03] MEDS: PROPOFOL 1,000,000 MCG/100 ML VIAL IVPB SCH (21:23)
[2020-12-04] MEDS: PIPERACILLIN/TAZOB 3.375 GM 3.375 GM in DEXTROSE 5%-WATER - 50 ML IVPB SCH ×3 (02:00→17:40)
[2020-12-04 07:13] LABS: BASO % 0.6 % (0-2.0); EOS % 3.7 % (0-4.5); HEMATOCRIT 22.8 % (35.4-49); HEMOGLOBIN 7.4 GM/dL (11.7-16.9); LYMPH % 11.6 % (8-40); MCH 25.9 pg (25.7-33.7); MCHC 32.6 g/dl (32.0-35.9); MEAN CELL VOLUME 79.4 fl (80-96); MEAN PLT VOLUME 8.2 fl (7.5-11.1); MONO % 5.9 % (3.8-10.2); NEUT % 78.2 % (42.8-82.8); PLATELET COUNT 263 K/MM3 (134-434); RBC 2.87 M/mm3 (4.00-5.60); WHITE BLOOD COUNT 12.3 K/mm3 (4.0-10.0)
[2020-12-04 07:32] LABS: ALBUMIN 1.8 g/dl (3.4-5.0); BLOOD UREA NITROGEN 60.9 mg/dL (7-18)
[2020-12-04 07:34] LABS: CALCIUM 8.5 mg/dL (8.5-10.1); MAGNESIUM 3.1 mg/dL (1.8-2.4)
[2020-12-04 07:35] LABS: CREATININE 2.5 mg/dL (0.55-1.3)
[2020-12-04 07:37] LABS: BILIRUBIN,TOTAL 0.5 mg/dL (0.2-1); PHOSPHOROUS 5.2 mg/dL (2.5-4.9); TOT PROT 5.2 g/dl (6.4-8.2)
[2020-12-04 09:15] LABS: CSF APPEARANCE CLEAR; CSF COLOR COLORLESS; CSF WBC 5
[2020-12-04] MEDS ORDERED: DEXTROSE 5%-WATER - 50 ML IVPB ONE ×4 (09:21→23:33)
[2020-12-04] MEDS ORDERED: PIPERACILLIN/TAZOBACTAM 3.375 GM VIAL IVPB ONE ×4 (09:21→23:33)
[2020-12-04] MEDS: PANTOPRAZOLE SODIUM 40 MG VIAL IVPUSH SCH (09:27)
[2020-12-04] MEDS: THIAMINE HCL 200 MG/2 ML VIAL IVPB SCH (09:28)
[2020-12-04] MEDS: Lacosamide 200 MG/20 ML VIAL IVPB SCH ×2 (09:32→21:28)
[2020-12-04] MEDS: NICARDIPINE 25 MG in DEXTROSE 5%-WATER - 240 ML IVPB SCH ×3 (09:34→22:00)
[2020-12-04] MEDS: MULTIVITAMINS THER W-MINERALS COMBO TABLET (FP) PO SCH (09:35)
[2020-12-04 09:45] LABS: BF GLUCOSE (CSF ONLY) 60 mg/dL (40-70)
[2020-12-04] MEDS: LABETALOL HCL 5 MG/1 ML (100MG/20 ML VIAL) IVPB SCH ×3 (10:33→20:57)
[2020-12-04] MEDS: AMINO ACIDS/PROTEIN HYDROLYS 30 ML LIQUID.PKT NGT SCH ×2 (10:33→17:40)
[2020-12-04] MEDS ORDERED: POLYETHYLENE GLYCOL 3350 119 GM BTL GT ONE (11:14)
[2020-12-04] MEDS: LABETALOL HCL 5 MG/1 ML (100MG/20 ML VIAL) IVPB PRN (11:23)
[2020-12-04] MEDS ORDERED: PT OWN MED DRAWER 7, Y5N ONE (14:02)
[2020-12-04] MEDS ORDERED: LABETALOL HCL 5 MG/1 ML (100MG/20 ML VIAL) IVPUSH ONE (14:15)
[2020-12-04] MEDS ORDERED: LACTATED RINGERS SOLUTION 1,000 ML/1,000 ML INFUS.BAG IV SCH (15:30)
[2020-12-04] MEDS ORDERED: ACETAMINOPHEN 1000 MG/100 ML VIAL (NON FORMULARY) IVPB PRN (17:04)
[2020-12-04] MEDS: PROPOFOL 1,000,000 MCG/100 ML VIAL IVPB SCH (21:28)
[2020-12-04] MEDS ORDERED: DEXMEDETOMIDINE IN 0.9 % NACL 200 MCG/50 ML EACH IVPB SCH (23:45)
[2020-12-05] MEDS: PIPERACILLIN/TAZOB 3.375 GM 3.375 GM in DEXTROSE 5%-WATER - 50 ML IVPB SCH ×2 (02:00→08:59)
[2020-12-05 07:16] LABS: BASO % 0.9 % (0-2.0); EOS % 6.5 % (0-4.5); HEMOGLOBIN 7.6 GM/dL (11.7-16.9); LYMPH % 10.8 % (8-40); MCH 26.2 pg (25.7-33.7); MCHC 32.9 g/dl (32.0-35.9); MEAN CELL VOLUME 79.7 fl (80-96); MEAN PLT VOLUME 8.1 fl (7.5-11.1); MONO % 6.5 % (3.8-10.2); NEUT % 75.3 % (42.8-82.8); PLATELET COUNT 302 K/MM3 (134-434); RBC 2.88 M/mm3 (4.00-5.60); RDW 16.9 % (11.9-15.9); WHITE BLOOD COUNT 7.1 K/mm3 (4.0-10.0)
[2020-12-05 07:27] LABS: INR 1.26 (0.83-1.09); PROTHROMBIN TIME (PATIENT) 15.1 SEC (9.7-13.0)
[2020-12-05 07:46] LABS: ALBUMIN 1.9 g/dl (3.4-5.0); BLOOD UREA NITROGEN 51.1 mg/dL (7-18)
[2020-12-05 07:47] LABS: MAGNESIUM 2.8 mg/dL (1.8-2.4)
[2020-12-05 07:49] LABS: CREATININE 1.7 mg/dL (0.55-1.3); PHOSPHOROUS 3.9 mg/dL (2.5-4.9)
[2020-12-05 07:51] LABS: BILIRUBIN,TOTAL 0.4 mg/dL (0.2-1); TOT PROT 5.6 g/dl (6.4-8.2)
[2020-12-05] MEDS ORDERED: PIPERACILLIN/TAZOBACTAM 3.375 GM VIAL IVPB ONE (08:53)
[2020-12-05] MEDS ORDERED: DEXTROSE 5%-WATER - 50 ML IVPB ONE (08:54)
[2020-12-05] MEDS: AMINO ACIDS/PROTEIN HYDROLYS 30 ML LIQUID.PKT NGT SCH ×2 (08:56→17:36)
[2020-12-05] MEDS: PANTOPRAZOLE SODIUM 40 MG VIAL IVPUSH SCH (08:59)
[2020-12-05] MEDS: MULTIVITAMINS THER W-MINERALS COMBO TABLET (FP) PO SCH (08:59)
[2020-12-05] MEDS: Lacosamide 200 MG/20 ML VIAL IVPB SCH ×2 (08:59→21:00)
[2020-12-05] MEDS: THIAMINE HCL 200 MG/2 ML VIAL IVPB SCH (09:00)
[2020-12-05] MEDS: POLYETHYLENE GLYCOL 3350 119 GM BTL PO SCH (09:00)
[2020-12-05] MEDS ORDERED: SODIUM CHLORIDE 0.45% 1,000 ML IV SCH ×2 (11:45→12:37)
[2020-12-05] MEDS: DEXMEDETOMIDINE IN 0.9 % NACL 400 MCG/100 ML VIAL IVPB SCH (16:00)
[2020-12-05] MEDS: hydrALAZINE HCL 50 MG TABLET (FP) PO SCH (21:00)
[2020-12-05] MEDS: PROPOFOL 1,000,000 MCG/100 ML VIAL IVPB SCH (21:17)
[2020-12-06 07:38] LABS: BASO % 0.6 % (0-2.0); HEMATOCRIT 24.6 % (35.4-49); HEMOGLOBIN 7.9 GM/dL (11.7-16.9); LYMPH % 9.2 % (8-40); MCH 25.9 pg (25.7-33.7); MCHC 32.1 g/dl (32.0-35.9); MEAN CELL VOLUME 80.7 fl (80-96); MEAN PLT VOLUME 8.4 fl (7.5-11.1); MONO % 8.8 % (3.8-10.2); NEUT % 76.4 % (42.8-82.8); PLATELET COUNT 326 K/MM3 (134-434); RBC 3.05 M/mm3 (4.00-5.60); WHITE BLOOD COUNT 8.1 K/mm3 (4.0-10.0)
[2020-12-06 07:49] LABS: MAGNESIUM 2.6 mg/dL (1.8-2.4)
[2020-12-06 07:53] LABS: PHOSPHOROUS 4.2 mg/dL (2.5-4.9)
[2020-12-06] MEDS: AMINO ACIDS/PROTEIN HYDROLYS 30 ML LIQUID.PKT NGT SCH ×2 (08:09→17:17)
[2020-12-06 08:34] LABS: CALCIUM 8.2 mg/dL (8.5-10.1)
[2020-12-06 08:35] LABS: ALBUMIN 1.9 g/dl (3.4-5.0); BLOOD UREA NITROGEN 48.1 mg/dL (7-18)
[2020-12-06 08:38] LABS: CREATININE 1.4 mg/dL (0.55-1.3)
[2020-12-06 08:40] LABS: BILIRUBIN,TOTAL 0.3 mg/dL (0.2-1); TOT PROT 5.6 g/dl (6.4-8.2)
[2020-12-06] MEDS: PANTOPRAZOLE SODIUM 40 MG VIAL IVPUSH SCH (09:37)
[2020-12-06] MEDS: THIAMINE HCL 200 MG/2 ML VIAL IVPB SCH (09:37)
[2020-12-06] MEDS: Lacosamide 200 MG/20 ML VIAL IVPB SCH ×2 (09:37→21:30)
[2020-12-06] MEDS: MULTIVITAMINS THER W-MINERALS COMBO TABLET (FP) PO SCH (09:39)
[2020-12-06] MEDS: POLYETHYLENE GLYCOL 3350 119 GM BTL PO SCH (09:39)
[2020-12-06] MEDS: hydrALAZINE HCL 50 MG TABLET (FP) PO SCH (09:40)
[2020-12-06] MEDS: SODIUM CHLORIDE 0.45% 1,000 ML IV SCH (14:03)
[2020-12-06] MEDS: DEXMEDETOMIDINE IN 0.9 % NACL 400 MCG/100 ML VIAL IVPB SCH (15:34)
[2020-12-06] MEDS: FENTANYL IVPB 500 MCG/100 ML BAG IVPB SCH (20:28)
[2020-12-06] MEDS: ACETAMINOPHEN 1000 MG/100 ML VIAL (NON FORMULARY) IVPB PRN (21:00)
[2020-12-06] MEDS: PROPOFOL 1,000,000 MCG/100 ML VIAL IVPB SCH (21:29)
[2020-12-06] MEDS: METOPROLOL TARTRATE 50 MG TABLET (FP) PO SCH (21:37)
[2020-12-07] MEDS: PROPOFOL 1,000,000 MCG/100 ML VIAL IVPB SCH ×2 (03:18→20:21)
[2020-12-07] MEDS: ACETAMINOPHEN 1000 MG/100 ML VIAL (NON FORMULARY) IVPB PRN (03:19)
[2020-12-07] MEDS: FENTANYL IVPB 500 MCG/100 ML BAG IVPB SCH ×2 (06:23→21:05)
[2020-12-07 07:09] LABS: BASO % 0.7 % (0-2.0); EOS % 5.5 % (0-4.5); HEMOGLOBIN 7.5 GM/dL (11.7-16.9); LYMPH % 16.2 % (8-40); MCH 25.8 pg (25.7-33.7); MCHC 32.4 g/dl (32.0-35.9); MEAN CELL VOLUME 79.6 fl (80-96); MEAN PLT VOLUME 7.9 fl (7.5-11.1); MONO % 8.8 % (3.8-10.2); NEUT % 68.8 % (42.8-82.8); PLATELET COUNT 348 K/MM3 (134-434); RBC 2.89 M/mm3 (4.00-5.60); RDW 16.9 % (11.9-15.9); WHITE BLOOD COUNT 6.2 K/mm3 (4.0-10.0)
[2020-12-07 07:27] LABS: ALBUMIN 1.9 g/dl (3.4-5.0); BLOOD UREA NITROGEN 46.5 mg/dL (7-18); CALCIUM 8.1 mg/dL (8.5-10.1)
[2020-12-07 07:31] LABS: CREATININE 1.3 mg/dL (0.55-1.3)
[2020-12-07 07:32] LABS: BILIRUBIN,TOTAL 0.2 mg/dL (0.2-1); TOT PROT 5.6 g/dl (6.4-8.2)
[2020-12-07] MEDS: AMINO ACIDS/PROTEIN HYDROLYS 30 ML LIQUID.PKT NGT SCH ×2 (08:30→17:25)
[2020-12-07] MEDS: MULTIVITAMINS THER W-MINERALS COMBO TABLET (FP) PO SCH (09:02)
[2020-12-07] MEDS: THIAMINE HCL 200 MG/2 ML VIAL IVPB SCH (09:02)
[2020-12-07] MEDS: Lacosamide 200 MG/20 ML VIAL IVPB SCH ×2 (09:02→21:07)
[2020-12-07] MEDS: POLYETHYLENE GLYCOL 3350 119 GM BTL PO SCH (09:02)
[2020-12-07] MEDS: hydrALAZINE HCL 50 MG TABLET (FP) PO SCH (09:02)
[2020-12-07] MEDS: PANTOPRAZOLE SODIUM 40 MG VIAL IVPUSH SCH (09:03)
[2020-12-07] MEDS: METOPROLOL TARTRATE 50 MG TABLET (FP) PO SCH ×2 (10:00→21:07)
[2020-12-07 11:51] LABS: EPI CELLS 47.5 /uL (0-25.1); PH,URINE 5.5 (5.0-8.0); URINE APPEARANCE TURBID; URINE BILIRUBIN NEGATIVE (NEGATIVE); URINE COLOR DK YELLOW; URINE GLUCOSE (UA) NEGATIVE (NEGATIVE); URINE KETONE NEGATIVE (NEGATIVE); URINE LEUK ESTERASE TRACE (NEGATIVE); URINE NITRITE NEGATIVE (NEGATIVE); URINE PROTEIN 2+ (NEGATIVE); URINE RBC 497.1 /uL (0-23.9); URINE UROBILINOGEN 0.2 mg/dL (0.2-1.0); URINE WBC 411.4 /uL (0-25.8)
[2020-12-07 11:52] LABS: HYALINE CASTS 27.61 /uL (0-3.1); URINE BACTERIA 12.4 /uL (0-1359); URINE CRYSTALS MANY /hpf
[2020-12-07] MEDS: LABETALOL HCL 5 MG/1 ML (100MG/20 ML VIAL) IVPB PRN (20:29)
[2020-12-07] MEDS: SODIUM CHLORIDE 0.45% 1,000 ML IV SCH (20:30)
[2020-12-07] MEDS: DEXMEDETOMIDINE IN 0.9 % NACL 400 MCG/100 ML VIAL IVPB SCH (20:30)
[2020-12-08] MEDS: LABETALOL HCL 5 MG/1 ML (100MG/20 ML VIAL) IVPB PRN ×3 (01:32→10:37)
[2020-12-08] MEDS ORDERED: hydrALAZINE HCL 20 MG/ML VIAL IVPUSH ONE (05:39)
[2020-12-08] MEDS: FENTANYL IVPB 500 MCG/100 ML BAG IVPB SCH ×2 (06:17→11:16)
[2020-12-08 06:58] LABS: HEMATOCRIT 23.1 % (35.4-49); HEMOGLOBIN 7.6 GM/dL (11.7-16.9); MCH 25.9 pg (25.7-33.7); MCHC 32.9 g/dl (32.0-35.9); MEAN CELL VOLUME 78.9 fl (80-96); MEAN PLT VOLUME 7.8 fl (7.5-11.1); PLATELET COUNT 382 K/MM3 (134-434); RBC 2.93 M/mm3 (4.00-5.60); RDW 16.4 % (11.9-15.9); WHITE BLOOD COUNT 7.3 K/mm3 (4.0-10.0)
[2020-12-08 07:16] LABS: CALCIUM 8.4 mg/dL (8.5-10.1)
[2020-12-08 07:17] LABS: BLOOD UREA NITROGEN 37.7 mg/dL (7-18); MAGNESIUM 2.2 mg/dL (1.8-2.4)
[2020-12-08 07:20] LABS: CREATININE 1.1 mg/dL (0.55-1.3); PHOSPHOROUS 3.9 mg/dL (2.5-4.9)
[2020-12-08] MEDS: Lacosamide 200 MG/20 ML VIAL IVPB SCH ×2 (09:49→21:21)
[2020-12-08] MEDS: THIAMINE HCL 200 MG/2 ML VIAL IVPB SCH (09:51)
[2020-12-08] MEDS: AMINO ACIDS/PROTEIN HYDROLYS 30 ML LIQUID.PKT NGT SCH ×2 (09:53→17:30)
[2020-12-08] MEDS: PANTOPRAZOLE SODIUM 40 MG VIAL IVPUSH SCH (09:53)
[2020-12-08] MEDS: METOPROLOL TARTRATE 50 MG TABLET (FP) PO SCH ×3 (09:53→21:21)
[2020-12-08] MEDS: hydrALAZINE HCL 50 MG TABLET (FP) PO SCH (09:53)
[2020-12-08] MEDS: MULTIVITAMINS THER W-MINERALS COMBO TABLET (FP) PO SCH (09:54)
[2020-12-08] MEDS ORDERED: PANTOPRAZOLE 40 MG TABLET PO ONE (11:15)
[2020-12-08] MEDS: SODIUM CHLORIDE 0.45% 1,000 ML IV SCH ×2 (11:15→13:20)
[2020-12-08] MEDS: PROPOFOL 1,000,000 MCG/100 ML VIAL IVPB SCH ×2 (11:16→21:20)
[2020-12-08] MEDS: POLYETHYLENE GLYCOL 3350 119 GM BTL PO SCH (11:16)
[2020-12-08] MEDS ORDERED: MIDAZOLAM HCL 2 MG/2 ML SINGLE DOSE VIAL ONE (11:21)
[2020-12-08] MEDS ORDERED: MIDAZOLAM HCL 2 MG/2 ML SINGLE DOSE VIAL IVPUSH ONE (11:25)
[2020-12-08] MEDS: ACETAMINOPHEN 1000 MG/100 ML VIAL (NON FORMULARY) IVPB PRN (14:20)
[2020-12-08] MEDS: DEXMEDETOMIDINE IN 0.9 % NACL 400 MCG/100 ML VIAL IVPB SCH (15:11)
[2020-12-08] MEDS ORDERED: FENTANYL NS IVPB 500 MCG/100 ML BAG IVPB ONE (15:48)
[2020-12-08] MEDS: FENTANYL NS IVPB 500 MCG/100 ML BAG IVPB SCH ×2 (16:00→20:00)
[2020-12-08] MEDS ORDERED: PT OWN MED DRAWER 7, Y5N ONE (21:16)
[2020-12-09] MEDS: ACETAMINOPHEN 1000 MG/100 ML VIAL (NON FORMULARY) IVPB PRN (04:37)
[2020-12-09 06:49] LABS: BASO % 0.4 % (0-2.0); EOS % 1.7 % (0-4.5); HEMATOCRIT 22.2 % (35.4-49); HEMOGLOBIN 7.3 GM/dL (11.7-16.9); LYMPH % 3.5 % (8-40); MCH 25.8 pg (25.7-33.7); MCHC 32.8 g/dl (32.0-35.9); MEAN CELL VOLUME 78.8 fl (80-96); MEAN PLT VOLUME 7.9 fl (7.5-11.1); MONO % 4.9 % (3.8-10.2); NEUT % 89.5 % (42.8-82.8); PLATELET COUNT 298 K/MM3 (134-434); RBC 2.82 M/mm3 (4.00-5.60); WHITE BLOOD COUNT 11.4 K/mm3 (4.0-10.0)
[2020-12-09 07:26] LABS: ALBUMIN 1.8 g/dl (3.4-5.0); BLOOD UREA NITROGEN 42.5 mg/dL (7-18); CALCIUM 8.3 mg/dL (8.5-10.1)
[2020-12-09 07:29] LABS: CREATININE 1.4 mg/dL (0.55-1.3)
[2020-12-09 07:30] LABS: BILIRUBIN,TOTAL 0.8 mg/dL (0.2-1); PHOSPHOROUS 3.5 mg/dL (2.5-4.9)
[2020-12-09 07:31] LABS: TOT PROT 5.9 g/dl (6.4-8.2)
[2020-12-09] MEDS: AMINO ACIDS/PROTEIN HYDROLYS 30 ML LIQUID.PKT NGT SCH ×3 (08:58→17:48)
[2020-12-09] MEDS: FENTANYL NS IVPB 500 MCG/100 ML BAG IVPB SCH ×2 (08:59→20:05)
[2020-12-09] MEDS: Lacosamide 200 MG/20 ML VIAL IVPB SCH ×2 (09:14→21:36)
[2020-12-09] MEDS: hydrALAZINE HCL 50 MG TABLET (FP) PO SCH (09:14)
[2020-12-09] MEDS: PANTOPRAZOLE SODIUM 40 MG VIAL IVPUSH SCH (09:14)
[2020-12-09] MEDS: MULTIVITAMINS THER W-MINERALS COMBO TABLET (FP) PO SCH (09:14)
[2020-12-09] MEDS: METOPROLOL TARTRATE 50 MG TABLET (FP) PO SCH (09:14)
[2020-12-09] MEDS: THIAMINE HCL 200 MG/2 ML VIAL IVPB SCH (09:32)
[2020-12-09] MEDS: POLYETHYLENE GLYCOL 3350 119 GM BTL PO SCH (11:00)
[2020-12-09] MEDS: DEXMEDETOMIDINE IN 0.9 % NACL 400 MCG/100 ML VIAL IVPB SCH (15:45)
[2020-12-09] MEDS ORDERED: ACETAMINOPHEN 1000 MG/100 ML VIAL (NON FORMULARY) IVPB PRN (15:46)
[2020-12-09] MEDS: SODIUM CHLORIDE 0.45% 1,000 ML IV SCH (15:53)
[2020-12-09] MEDS ORDERED: DEXTROSE 5%-WATER - 1,000 ML IV SCH (17:30)
[2020-12-09] MEDS ORDERED: SODIUM CHLORIDE 500 ML IV STA ×2 (17:30→18:35)
[2020-12-09] MEDS: PROPOFOL 1,000,000 MCG/100 ML VIAL IVPB SCH (21:36)
[2020-12-09] MEDS ORDERED: METOPROLOL TARTRATE 50 MG TABLET (FP) GT SCH (22:00)
[2020-12-10] MEDS ORDERED: DEXMEDETOMIDINE HCL 200 MCG/2 ML IVPB ONE (06:35)
[2020-12-10] MEDS ORDERED: SUCCINYLCHOLINE CHLORIDE 200 MG/10 ML SYRINGE ONE (06:50)
[2020-12-10] MEDS ORDERED: EPHEDRINE SULFATE/0.9% NACL/PF 50 MG/10 ML SYRINGE NR ONE ×3 (06:50→08:39)
[2020-12-10] MEDS ORDERED: ETOMIDATE 20 MG/10 ML AMPUL IVPUSH ONE (06:51)
[2020-12-10] MEDS ORDERED: LIDOCAINE HCL/PF 2% SDV 5ML VIAL ONE (06:51)
[2020-12-10] MEDS ORDERED: ONDANSETRON 4 MG/2 ML VIAL ONE (06:51)
[2020-12-10] MEDS ORDERED: LIDOCAINE HCL 2% JELLY (5 ML/TUBE) ONE (06:51)
[2020-12-10] MEDS ORDERED: PROPOFOL 20 ML ONE ×2 (06:54)
[2020-12-10] MEDS ORDERED: KETAMINE HCL 200 MG/20 ML VIAL ONE (06:57)
[2020-12-10] MEDS ORDERED: THROMBIN (BOVINE) 20,000 UNIT VIAL TP ONE (07:26)
[2020-12-10] MEDS ORDERED: GENTAMICIN SO4 80 MG/2 ML VIAL ONE (07:26)
[2020-12-10] MEDS ORDERED: LIDOCAINE 1%/EPI 1:100000 (50 ML MULTI DOSE VIAL) ONE (07:26)
[2020-12-10] MEDS: AMINO ACIDS/PROTEIN HYDROLYS 30 ML LIQUID.PKT NGT SCH ×3 (08:00→17:59)
[2020-12-10] MEDS ORDERED: ceFAZolin SODIUM 1 GM VIAL IVPB ONE (08:25)
[2020-12-10 08:26] LABS: ALBUMIN 1.8 g/dl (3.4-5.0); CALCIUM 7.7 mg/dL (8.5-10.1)
[2020-12-10 08:27] LABS: MAGNESIUM 2.3 mg/dL (1.8-2.4)
[2020-12-10 08:30] LABS: CREATININE 2.8 mg/dL (0.55-1.3); PHOSPHOROUS 3.9 mg/dL (2.5-4.9)
[2020-12-10 08:31] LABS: BILIRUBIN,TOTAL 0.5 mg/dL (0.2-1); TOT PROT 5.8 g/dl (6.4-8.2)
[2020-12-10] MEDS ORDERED: LIDOCAINE 1%/EPI 1:100000 (50 ML MULTI DOSE VIAL) INF ONE (08:33)
[2020-12-10] MEDS ORDERED: VANCOMYCIN 1,000 MG VIAL (RESTRICTED TO ID ONLY) IVPB ONE (08:35)
[2020-12-10 08:40] LABS: BLOOD UREA NITROGEN 69.4 mg/dL (7-18)
[2020-12-10] MEDS ORDERED: VANCOMYCIN 1,000 MG VIAL (RESTRICTED TO ID ONLY) ONE (08:43)
[2020-12-10] MEDS ORDERED: THROMBIN (BOVINE) 5,000 UNIT VIAL TP ONE (08:50)
[2020-12-10] MEDS ORDERED: GENTAMICIN SO4 80 MG/2 ML VIAL IVPB ONE (08:55)
[2020-12-10] MEDS ORDERED: BACITRACIN 50,000 UNITS VIAL TP ONE (08:55)
[2020-12-10] MEDS: PANTOPRAZOLE SODIUM 40 MG VIAL IVPUSH SCH (11:00)
[2020-12-10] MEDS: POLYETHYLENE GLYCOL 3350 119 GM BTL PO SCH (11:00)
[2020-12-10] MEDS: THIAMINE HCL 200 MG/2 ML VIAL IVPB SCH (11:00)
[2020-12-10] MEDS: MULTIVITAMINS THER W-MINERALS COMBO TABLET (FP) PO SCH (11:00)
[2020-12-10] MEDS: MUPIROCIN 2% TOPICAL OINTMENT FOR DECOLONIZATION NS SCH ×2 (11:50→21:55)
[2020-12-10] MEDS ORDERED: ONDANSETRON 4 MG/2 ML VIAL IVPUSH PRN (15:02)
[2020-12-10] MEDS ORDERED: LABETALOL HCL 5 MG/1 ML (100MG/20 ML VIAL) IVPB PRN (15:02)
[2020-12-10] MEDS ORDERED: ACETAMINOPHEN 1000 MG/100 ML VIAL (NON FORMULARY) IVPB PRN (15:02)
[2020-12-10] MEDS ORDERED: DEXTROSE 5%-WATER - 1,000 ML IV SCH (15:02)
[2020-12-10] MEDS: FENTANYL NS IVPB 500 MCG/100 ML BAG IVPB SCH ×2 (16:27→20:02)
[2020-12-10] MEDS: DEXMEDETOMIDINE IN 0.9 % NACL 400 MCG/100 ML VIAL IVPB SCH (16:27)
[2020-12-10] MEDS: LACTATED RINGERS SOLUTION 1,000 ML/1,000 ML INFUS.BAG IV SCH (16:28)
[2020-12-10] MEDS: PROPOFOL 1,000,000 MCG/100 ML VIAL IVPB SCH (17:57)
[2020-12-10] MEDS: CHLORHEXIDINE GLUCONATE 4% CLEANSER FOR DECOLONIZATION TP SCH (21:56)
[2020-12-11] MEDS ORDERED: ACETAMINOPHEN 1000 MG/100 ML VIAL (NON FORMULARY) IVPB ONE ×2 (04:16→21:10)
[2020-12-11 07:39] LABS: HEMATOCRIT 26.4 % (35.4-49); HEMOGLOBIN 8.7 GM/dL (11.7-16.9); MCH 26.1 pg (25.7-33.7); MCHC 32.8 g/dl (32.0-35.9); MEAN CELL VOLUME 79.7 fl (80-96); MEAN PLT VOLUME 8.9 fl (7.5-11.1); PLATELET COUNT 197 K/MM3 (134-434); RBC 3.31 M/mm3 (4.00-5.60); RDW 17.4 % (11.9-15.9); WHITE BLOOD COUNT 5.8 K/mm3 (4.0-10.0)
[2020-12-11] MEDS: AMINO ACIDS/PROTEIN HYDROLYS 30 ML LIQUID.PKT NGT SCH ×2 (08:00→12:12)
[2020-12-11 08:08] LABS: ALBUMIN 1.8 g/dl (3.4-5.0); BLOOD UREA NITROGEN 72.8 mg/dL (7-18)
[2020-12-11 08:09] LABS: BILIRUBIN,TOTAL 0.6 mg/dL (0.2-1); TOT PROT 5.8 g/dl (6.4-8.2)
[2020-12-11 08:10] LABS: CREATININE 2.8 mg/dL (0.55-1.3); MAGNESIUM 2.3 mg/dL (1.8-2.4)
[2020-12-11 08:12] LABS: CALCIUM 8.1 mg/dL (8.5-10.1)
[2020-12-11] MEDS: PANTOPRAZOLE SODIUM 40 MG VIAL IVPUSH SCH (09:35)
[2020-12-11] MEDS: THIAMINE HCL 200 MG/2 ML VIAL IVPB SCH (09:40)
[2020-12-11] MEDS: MUPIROCIN 2% TOPICAL OINTMENT FOR DECOLONIZATION NS SCH ×2 (09:42→22:31)
[2020-12-11] MEDS: MULTIVITAMINS THER W-MINERALS COMBO TABLET (FP) PO SCH (11:00)
[2020-12-11] MEDS: POLYETHYLENE GLYCOL 3350 119 GM BTL GT SCH (11:00)
[2020-12-11] MEDS ORDERED: hydrALAZINE HCL 50 MG TABLET (FP) GT ONE (14:46)
[2020-12-11] MEDS: ACETAMINOPHEN 1000 MG/100 ML VIAL (NON FORMULARY) IVPB PRN (15:02)
[2020-12-11] MEDS: DEXMEDETOMIDINE IN 0.9 % NACL 400 MCG/100 ML VIAL IVPB SCH (16:05)
[2020-12-11] MEDS: FENTANYL NS IVPB 500 MCG/100 ML BAG IVPB SCH ×3 (16:05→20:58)
[2020-12-11] MEDS: PROPOFOL 1,000,000 MCG/100 ML VIAL IVPB SCH (16:06)
[2020-12-11] MEDS: LACTATED RINGERS SOLUTION 1,000 ML/1,000 ML INFUS.BAG IV SCH (16:23)
[2020-12-11] MEDS: MORPHINE SULFATE 2 MG/ML VIAL IVPUSH PRN (17:06)
[2020-12-11] MEDS ORDERED: PROPOFOL 1,000,000 MCG/100 ML VIAL IVPB SCH (18:00)
[2020-12-11] MEDS ORDERED: FENTANYL NS IVPB 500 MCG/100 ML BAG IVPB SCH (18:00)
[2020-12-11] MEDS: METOPROLOL TARTRATE 50 MG TABLET (FP) GT SCH (22:30)
[2020-12-11] MEDS: CHLORHEXIDINE GLUCONATE 4% CLEANSER FOR DECOLONIZATION TP SCH (22:31)
[2020-12-12] MEDS: ACETAMINOPHEN 1000 MG/100 ML VIAL (NON FORMULARY) IVPB PRN (06:02)
[2020-12-12 06:58] LABS: HEMATOCRIT 26.7 % (35.4-49); HEMOGLOBIN 8.5 GM/dL (11.7-16.9); MCH 25.7 pg (25.7-33.7); MEAN CELL VOLUME 80.6 fl (80-96); MEAN PLT VOLUME 9.4 fl (7.5-11.1); PLATELET COUNT 170 K/MM3 (134-434); RBC 3.31 M/mm3 (4.00-5.60); RDW 17.7 % (11.9-15.9); WHITE BLOOD COUNT 8.7 K/mm3 (4.0-10.0)
[2020-12-12 07:36] LABS: BLOOD UREA NITROGEN 77.9 mg/dL (7-18)
[2020-12-12 07:37] LABS: ALBUMIN 1.7 g/dl (3.4-5.0); CALCIUM 8.2 mg/dL (8.5-10.1); MAGNESIUM 2.6 mg/dL (1.8-2.4)
[2020-12-12 07:39] LABS: CREATININE 2.6 mg/dL (0.55-1.3); PHOSPHOROUS 4.4 mg/dL (2.5-4.9)
[2020-12-12 07:41] LABS: BILIRUBIN,TOTAL 1.3 mg/dL (0.2-1); TOT PROT 5.8 g/dl (6.4-8.2)
[2020-12-12] MEDS: MULTIVITAMINS THER W-MINERALS COMBO TABLET (FP) PO SCH (09:10)
[2020-12-12] MEDS: PANTOPRAZOLE SODIUM 40 MG VIAL IVPUSH SCH (09:10)
[2020-12-12] MEDS: AMINO ACIDS/PROTEIN HYDROLYS 30 ML LIQUID.PKT NGT SCH (09:11)
[2020-12-12] MEDS: METOPROLOL TARTRATE 50 MG TABLET (FP) GT SCH (09:15)
[2020-12-12] MEDS: THIAMINE HCL 200 MG/2 ML VIAL IVPB SCH (09:16)
[2020-12-12] MEDS: POLYETHYLENE GLYCOL 3350 119 GM BTL GT SCH (09:22)
[2020-12-12] MEDS ORDERED: hydrALAZINE HCL 50 MG TABLET (FP) GT SCH (10:00)
[2020-12-12] MEDS ORDERED: ACETAMINOPHEN 1000 MG/100 ML VIAL (NON FORMULARY) IVPB ONE (11:03)
[2020-12-12] MEDS: MUPIROCIN 2% TOPICAL OINTMENT FOR DECOLONIZATION NS SCH (12:09)
[2020-12-12] MEDS: ARTIFICIAL TEARS (POLYVINYL ALCOHOL) OPTH DROPS OU PRN (13:49)
[2020-12-12] MEDS ORDERED: LACTATED RINGERS SOLUTION 1,000 ML/1,000 ML INFUS.BAG IV SCH (14:00)
[2020-12-12] MEDS ORDERED: NICARDIPINE 25 MG in DEXTROSE 5%-WATER - 240 ML IVPB SCH (16:15)
[2020-12-12] MEDS ORDERED: hydrALAZINE HCL 50 MG TABLET (FP) NGT ONE (17:37)
[2020-12-12] MEDS ORDERED: cloNIDine-TTS 0.1 MG/24 HRS PATCH.TDWK TD SCH (18:09)
[2020-12-12] MEDS ORDERED: METOPROLOL TARTRATE 50 MG TABLET (FP) PO ONE (22:25)
[2020-12-12] MEDS ORDERED: hydrALAZINE HCL 50 MG TABLET (FP) GT ONE (23:30)
[2020-12-13 00:41] LABS: ARTERIAL BLD GAS O2 SATURATION 98.5 mmHg (95-98); ARTERIAL BLOOD GAS BASE EXCESS -3.8 mmol/L (-2-2); ARTERIAL BLOOD GAS pH 7.359 (7.350-7.450)
[2020-12-13 01:26] LABS: ALLENS TEST POSITIVE
[2020-12-13] MEDS ORDERED: hydrALAZINE HCL 50 MG TABLET (FP) GT ONE (01:32)
[2020-12-13 06:37] LABS: HEMOGLOBIN 8.6 GM/dL (11.7-16.9); MCH 25.5 pg (25.7-33.7); MCHC 31.9 g/dl (32.0-35.9); MEAN CELL VOLUME 79.8 fl (80-96); MEAN PLT VOLUME 9.1 fl (7.5-11.1); PLATELET COUNT 202 K/MM3 (134-434); RBC 3.38 M/mm3 (4.00-5.60); RDW 17.8 % (11.9-15.9); WHITE BLOOD COUNT 12.9 K/mm3 (4.0-10.0)
[2020-12-13 07:00] LABS: ALBUMIN 1.7 g/dl (3.4-5.0); BLOOD UREA NITROGEN 88.6 mg/dL (7-18); MAGNESIUM 2.4 mg/dL (1.8-2.4)
[2020-12-13 07:03] LABS: CREATININE 2.5 mg/dL (0.55-1.3)
[2020-12-13 07:04] LABS: BILIRUBIN,TOTAL 1.7 mg/dL (0.2-1); TOT PROT 5.7 g/dl (6.4-8.2)
[2020-12-13] MEDS: AMINO ACIDS/PROTEIN HYDROLYS 30 ML LIQUID.PKT NGT SCH (08:08)
[2020-12-13] MEDS: PANTOPRAZOLE SODIUM 40 MG VIAL IVPUSH SCH (09:51)
[2020-12-13] MEDS: MULTIVITAMINS THER W-MINERALS COMBO TABLET (FP) PO SCH (09:51)
[2020-12-13] MEDS: POLYETHYLENE GLYCOL 3350 119 GM BTL GT SCH (09:51)
[2020-12-13] MEDS: MUPIROCIN 2% TOPICAL OINTMENT FOR DECOLONIZATION NS SCH ×3 (09:52→21:00)
[2020-12-13] MEDS: THIAMINE HCL 200 MG/2 ML VIAL IVPB SCH (09:52)
[2020-12-13] MEDS: NICARDIPINE 25 MG in DEXTROSE 5%-WATER - 240 ML IVPB SCH (19:48)
[2020-12-13] MEDS: MORPHINE SULFATE 2 MG/ML VIAL IVPUSH PRN (20:34)
[2020-12-13] MEDS: CHLORHEXIDINE GLUCONATE 4% CLEANSER FOR DECOLONIZATION TP SCH ×2 (20:53→21:00)
[2020-12-14] MEDS: NICARDIPINE 25 MG in DEXTROSE 5%-WATER - 240 ML IVPB SCH ×2 (05:23→18:57)
[2020-12-14] MEDS: AMINO ACIDS/PROTEIN HYDROLYS 30 ML LIQUID.PKT NGT SCH (08:54)
[2020-12-14 09:12] LABS: BASO % 0.1 % (0-2.0); EOS % 0.4 % (0-4.5); HEMATOCRIT 26.6 % (35.4-49); HEMOGLOBIN 8.7 GM/dL (11.7-16.9); LYMPH % 5.5 % (8-40); MCH 25.9 pg (25.7-33.7); MCHC 32.8 g/dl (32.0-35.9); MEAN PLT VOLUME 8.9 fl (7.5-11.1); MONO % 2.8 % (3.8-10.2); NEUT % 91.2 % (42.8-82.8); PLATELET COUNT 244 K/MM3 (134-434); RBC 3.37 M/mm3 (4.00-5.60); RDW 17.8 % (11.9-15.9); WHITE BLOOD COUNT 11.6 K/mm3 (4.0-10.0)
[2020-12-14 09:41] LABS: ALBUMIN 1.6 g/dl (3.4-5.0); BLOOD UREA NITROGEN 85.7 mg/dL (7-18); MAGNESIUM 2.3 mg/dL (1.8-2.4)
[2020-12-14 09:43] LABS: CREATININE 2.1 mg/dL (0.55-1.3); PHOSPHOROUS 2.9 mg/dL (2.5-4.9)
[2020-12-14 09:45] LABS: TOT PROT 5.8 g/dl (6.4-8.2)
[2020-12-14] MEDS: POLYETHYLENE GLYCOL 3350 119 GM BTL GT SCH (10:00)
[2020-12-14] MEDS: PANTOPRAZOLE SODIUM 40 MG VIAL IVPUSH SCH (10:00)
[2020-12-14] MEDS: MULTIVITAMINS THER W-MINERALS COMBO TABLET (FP) PO SCH (10:01)
[2020-12-14] MEDS: MUPIROCIN 2% TOPICAL OINTMENT FOR DECOLONIZATION NS SCH ×2 (10:01→21:05)
[2020-12-14 10:30] LABS: ANISOCYTOSIS 0; HELMET CELLS 0; HOWELL-JOLLY BODIES 0; MACROCYTOSIS 0; OVALOCYTE 0; PLATELET ESTIMATE NORMAL; ROULEAU 0; SICKELED CELLS 0; TARGET CELLS 0; TEAR DROP CELLS 0; TOXIC GRANULATION 0
[2020-12-14] MEDS: THIAMINE HCL 200 MG/2 ML VIAL IVPB SCH (10:42)
[2020-12-14] MEDS ORDERED: PT OWN MED DRAWER 7, Y5N ONE ×2 (11:00→13:27)
[2020-12-14] MEDS ORDERED: METOPROLOL TARTRATE 5 MG/5 ML VIAL IVPUSH ONE (11:24)
[2020-12-14] MEDS ORDERED: AMIODARONE IN DEXTROSE,ISO-OSM 360 MG/200 ML BAG ONE (12:32)
[2020-12-14] MEDS ORDERED: AMIODARONE HCL 150 MG/3 ML VIAL ONE (12:32)
[2020-12-14] MEDS ORDERED: AMIODARONE IN DEXTROSE,ISO-OSM 150 MG/100 ML BAG ONE (12:38)
[2020-12-14] MEDS ORDERED: AMIODARONE HCL INJECTION 150 MG in DEXTROSE 5%-WATER - 100 ML IVPB ONE (12:38)
[2020-12-14] MEDS ORDERED: AMIODARONE IN DEXTROSE,ISO-OSM 360 MG/200 ML BAG IVPB ONE (13:00)
[2020-12-14] MEDS ORDERED: cefTRIAXone SODIUM 1 GM VIAL ONE (13:27)
[2020-12-14] MEDS ORDERED: DEXTROSE 5%-WATER - 50 ML IVPB ONE (13:27)
[2020-12-14] MEDS ORDERED: ACETAMINOPHEN 1000 MG/100 ML VIAL (NON FORMULARY) IVPB ONE (13:47)
[2020-12-14] MEDS: CEFTRIAXONE 1 GM in DEXTROSE 5%-WATER - 50 ML IVPB SCH (14:31)
[2020-12-14] MEDS ORDERED: AMIODARONE IN DEXTROSE,ISO-OSM 360 MG/200 ML BAG IVPB SCH ×2 (18:53→20:15)
[2020-12-14] MEDS: CHLORHEXIDINE GLUCONATE 4% CLEANSER FOR DECOLONIZATION TP SCH (21:05)
[2020-12-14] MEDS ORDERED: HYDROmorphone HCl 2 MG/ML VIAL IVPUSH ONE (21:50)
[2020-12-14] MEDS ORDERED: HYDROmorphone HCL CARPU-JECT 2 MG/1 ML DISP.SYRIN IVPUSH SCH (23:45)
[2020-12-15] MEDS: HYDROmorphone HCl 2 MG/ML VIAL IVPUSH PRN ×4 (02:25→17:45)
[2020-12-15 06:09] LABS: BASO % 0.2 % (0-2.0); EOS % 2.9 % (0-4.5); HEMATOCRIT 26.3 % (35.4-49); HEMOGLOBIN 8.6 GM/dL (11.7-16.9); LYMPH % 7.9 % (8-40); MCH 25.8 pg (25.7-33.7); MCHC 32.6 g/dl (32.0-35.9); MEAN CELL VOLUME 79.2 fl (80-96); MEAN PLT VOLUME 8.4 fl (7.5-11.1); PLATELET COUNT 302 K/MM3 (134-434); RBC 3.32 M/mm3 (4.00-5.60); RDW 18.1 % (11.9-15.9); WHITE BLOOD COUNT 12.2 K/mm3 (4.0-10.0)
[2020-12-15 06:22] LABS: ALBUMIN 1.4 g/dl (3.4-5.0); BLOOD UREA NITROGEN 83.5 mg/dL (7-18); CALCIUM 7.7 mg/dL (8.5-10.1)
[2020-12-15 06:25] LABS: CREATININE 1.9 mg/dL (0.55-1.3); PHOSPHOROUS 3.8 mg/dL (2.5-4.9)
[2020-12-15 06:26] LABS: BILIRUBIN,TOTAL 0.6 mg/dL (0.2-1); TOT PROT 5.4 g/dl (6.4-8.2)
[2020-12-15] MEDS ORDERED: cefTRIAXone SODIUM 1 GM VIAL ONE (08:34)
[2020-12-15] MEDS ORDERED: DEXTROSE 5%-WATER - 50 ML IVPB ONE (08:34)
[2020-12-15] MEDS: AMINO ACIDS/PROTEIN HYDROLYS 30 ML LIQUID.PKT NGT SCH (08:40)
[2020-12-15] MEDS: PANTOPRAZOLE SODIUM 40 MG VIAL IVPUSH SCH (09:02)
[2020-12-15] MEDS: MULTIVITAMINS THER W-MINERALS COMBO TABLET (FP) PO SCH (09:02)
[2020-12-15] MEDS: CEFTRIAXONE 1 GM in DEXTROSE 5%-WATER - 50 ML IVPB SCH (09:02)
[2020-12-15] MEDS: POLYETHYLENE GLYCOL 3350 119 GM BTL GT SCH (09:02)
[2020-12-15] MEDS: THIAMINE HCL 200 MG/2 ML VIAL IVPB SCH (09:02)
[2020-12-15] MEDS ORDERED: POTASSIUM CHLORIDE ORAL LIQUID 20 MEQ/15 ML PO ONE (10:00)
[2020-12-15] MEDS: KCL 10 MEQ IVPB 10 MEQ/100 ML INFUS.BAG IVPB SCH ×2 (13:30→14:49)
[2020-12-15] MEDS: NICARDIPINE 25 MG in DEXTROSE 5%-WATER - 240 ML IVPB SCH ×3 (15:00→19:03)
[2020-12-15] MEDS ORDERED: hydrALAZINE HCL 20 MG/ML VIAL IVPUSH ONE (16:25)
[2020-12-15] MEDS: AMIODARONE HCL 200 MG TABLET PO SCH (21:30)
[2020-12-15] MEDS: CHLORHEXIDINE GLUCONATE 4% CLEANSER FOR DECOLONIZATION TP SCH (21:30)
[2020-12-16] MEDS: HYDROmorphone HCl 2 MG/ML VIAL IVPUSH PRN ×2 (06:04→11:30)
[2020-12-16 06:36] LABS: HEMATOCRIT 25.3 % (35.4-49); HEMOGLOBIN 8.3 GM/dL (11.7-16.9); MCH 25.5 pg (25.7-33.7); MCHC 32.8 g/dl (32.0-35.9); MEAN CELL VOLUME 77.9 fl (80-96); MEAN PLT VOLUME 8.3 fl (7.5-11.1); PLATELET COUNT 303 K/MM3 (134-434); RBC 3.25 M/mm3 (4.00-5.60); WHITE BLOOD COUNT 16.4 K/mm3 (4.0-10.0)
[2020-12-16 06:56] LABS: CALCIUM 7.8 mg/dL (8.5-10.1)
[2020-12-16 06:57] LABS: ALBUMIN 1.4 g/dl (3.4-5.0); BLOOD UREA NITROGEN 81.8 mg/dL (7-18)
[2020-12-16 07:00] LABS: CREATININE 1.7 mg/dL (0.55-1.3); PHOSPHOROUS 2.9 mg/dL (2.5-4.9)
[2020-12-16 07:02] LABS: BILIRUBIN,TOTAL 0.7 mg/dL (0.2-1); TOT PROT 5.8 g/dl (6.4-8.2)
[2020-12-16] MEDS: NICARDIPINE 25 MG in DEXTROSE 5%-WATER - 240 ML IVPB SCH ×2 (08:45→19:48)
[2020-12-16] MEDS ORDERED: cefTRIAXone SODIUM 1 GM VIAL ONE ×2 (08:56→10:40)
[2020-12-16] MEDS ORDERED: DEXTROSE 5%-WATER - 50 ML IVPB ONE ×2 (08:56→10:41)
[2020-12-16] MEDS: THIAMINE HCL 200 MG/2 ML VIAL IVPB SCH (09:02)
[2020-12-16] MEDS: PANTOPRAZOLE SODIUM 40 MG VIAL IVPUSH SCH (09:02)
[2020-12-16] MEDS: AMINO ACIDS/PROTEIN HYDROLYS 30 ML LIQUID.PKT NGT SCH (09:02)
[2020-12-16] MEDS: CEFTRIAXONE 1 GM in DEXTROSE 5%-WATER - 50 ML IVPB SCH (09:03)
[2020-12-16] MEDS: AMIODARONE HCL 200 MG TABLET PO SCH ×2 (09:03→21:20)
[2020-12-16] MEDS: MULTIVITAMINS THER W-MINERALS COMBO TABLET (FP) PO SCH (09:03)
[2020-12-16] MEDS: POLYETHYLENE GLYCOL 3350 119 GM BTL GT SCH (09:19)
[2020-12-16] MEDS ORDERED: PT OWN MED DRAWER 7, Y5N ONE ×6 (10:53→19:21)
[2020-12-16] MEDS ORDERED: CEFTRIAXONE 1 GM in DEXTROSE 5%-WATER - 50 ML IVPB ONE (11:00)
[2020-12-16] MEDS: LABETALOL HCL 100 MG TABLET (FP) PO SCH ×2 (11:13→21:20)
[2020-12-16] MEDS ORDERED: ACETAMINOPHEN 325 MG TABLET (FP) PO ONE (14:46)
[2020-12-16] MEDS: CHLORHEXIDINE GLUCONATE 4% CLEANSER FOR DECOLONIZATION TP SCH (21:20)
[2020-12-16] MEDS: ACETAMINOPHEN 325 MG TABLET (FP) PO PRN (21:58)
[2020-12-17 05:42] LABS: ARTERIAL BLOOD GAS BASE EXCESS 0.3 mmol/L (-2-2); ARTERIAL BLOOD GAS PO2 87.4 mmHg (80-100); ARTERIAL BLOOD GAS pH 7.445 (7.350-7.450)
[2020-12-17 07:01] LABS: BASO % 0.1 % (0-2.0); EOS % 2.5 % (0-4.5); HEMOGLOBIN 7.4 GM/dL (11.7-16.9); LYMPH % 6.7 % (8-40); MCH 25.3 pg (25.7-33.7); MCHC 32.4 g/dl (32.0-35.9); MEAN CELL VOLUME 77.9 fl (80-96); MEAN PLT VOLUME 8.5 fl (7.5-11.1); MONO % 4.3 % (3.8-10.2); NEUT % 86.4 % (42.8-82.8); PLATELET COUNT 308 K/MM3 (134-434); RBC 2.95 M/mm3 (4.00-5.60); RDW 17.9 % (11.9-15.9)
[2020-12-17 07:38] LABS: ALBUMIN 1.4 g/dl (3.4-5.0); CALCIUM 7.5 mg/dL (8.5-10.1)
[2020-12-17 07:39] LABS: BLOOD UREA NITROGEN 77.8 mg/dL (7-18); MAGNESIUM 1.9 mg/dL (1.8-2.4)
[2020-12-17 07:42] LABS: CREATININE 1.8 mg/dL (0.55-1.3); PHOSPHOROUS 3.5 mg/dL (2.5-4.9)
[2020-12-17 07:43] LABS: BILIRUBIN,TOTAL 0.7 mg/dL (0.2-1); TOT PROT 5.9 g/dl (6.4-8.2)
[2020-12-17] MEDS ORDERED: DEXTROSE 5%-WATER 100 ML IVPB ONE (09:49)
[2020-12-17] MEDS: CEFTRIAXONE 2 GM in DEXTROSE 5%-WATER 2 GM/100 ML BAG IVPB SCH (09:58)
[2020-12-17] MEDS: PANTOPRAZOLE SODIUM 40 MG VIAL IVPUSH SCH (09:58)
[2020-12-17] MEDS: AMIODARONE HCL 200 MG TABLET PO SCH ×2 (09:59→21:48)
[2020-12-17] MEDS: ACETAMINOPHEN 325 MG TABLET (FP) PO PRN (09:59)
[2020-12-17] MEDS: AMINO ACIDS/PROTEIN HYDROLYS 30 ML LIQUID.PKT NGT SCH (09:59)
[2020-12-17] MEDS: LABETALOL HCL 100 MG TABLET (FP) PO SCH (09:59)
[2020-12-17] MEDS: THIAMINE HCL 200 MG/2 ML VIAL IVPB SCH (09:59)
[2020-12-17] MEDS: POLYETHYLENE GLYCOL 3350 119 GM BTL GT SCH (10:00)
[2020-12-17] MEDS: MULTIVITAMINS THER W-MINERALS COMBO TABLET (FP) PO SCH (10:01)
[2020-12-17] MEDS: NICARDIPINE 25 MG in DEXTROSE 5%-WATER - 240 ML IVPB SCH (18:25)
[2020-12-17] MEDS ORDERED: ACETAMINOPHEN 1000 MG/100 ML VIAL (NON FORMULARY) IVPB ONE (19:25)
[2020-12-17] MEDS: CHLORHEXIDINE GLUCONATE 4% CLEANSER FOR DECOLONIZATION TP SCH (21:49)
[2020-12-17] MEDS: LABETALOL HCL 200 MG TABLET (FP) PO SCH (21:49)
[2020-12-18 06:17] LABS: ARTERIAL BLD GAS O2 SATURATION 96.8 mmHg (95-98); ARTERIAL BLOOD GAS BASE EXCESS -0.7 mmol/L (-2-2); ARTERIAL BLOOD GAS PO2 83.8 mmHg (80-100); ARTERIAL BLOOD GAS pH 7.447 (7.350-7.450)
[2020-12-18 06:44] LABS: ALLENS TEST POSITIVE
[2020-12-18 07:14] LABS: BASO % 0.3 % (0-2.0); EOS % 2.4 % (0-4.5); HEMATOCRIT 20.4 % (35.4-49); LYMPH % 9.5 % (8-40); MCH 25.2 pg (25.7-33.7); MEAN CELL VOLUME 78.7 fl (80-96); MEAN PLT VOLUME 8.2 fl (7.5-11.1); MONO % 5.8 % (3.8-10.2); PLATELET COUNT 306 K/MM3 (134-434); RBC 2.59 M/mm3 (4.00-5.60); RDW 17.8 % (11.9-15.9); WHITE BLOOD COUNT 11.3 K/mm3 (4.0-10.0)
[2020-12-18 07:25] LABS: HEMOGLOBIN 6.5 GM/dL (11.7-16.9)
[2020-12-18] MEDS ORDERED: POTASSIUM CHLORIDE ORAL LIQUID 20 MEQ/15 ML NGT ONE (08:31)
[2020-12-18 08:36] LABS: CALCIUM 7.4 mg/dL (8.5-10.1)
[2020-12-18 08:37] LABS: ALBUMIN 1.4 g/dl (3.4-5.0); BLOOD UREA NITROGEN 75.2 mg/dL (7-18)
[2020-12-18 08:39] LABS: CREATININE 1.8 mg/dL (0.55-1.3)
[2020-12-18 08:40] LABS: PHOSPHOROUS 3.8 mg/dL (2.5-4.9)
[2020-12-18 08:41] LABS: BILIRUBIN,TOTAL 0.5 mg/dL (0.2-1); TOT PROT 5.6 g/dl (6.4-8.2)
[2020-12-18] MEDS ORDERED: DEXTROSE 5%-WATER 100 ML IVPB ONE (09:03)
[2020-12-18] MEDS: KCL 10 MEQ IVPB 10 MEQ/100 ML INFUS.BAG IVPB SCH ×3 (09:19→14:00)
[2020-12-18] MEDS: CEFTRIAXONE 2 GM in DEXTROSE 5%-WATER 2 GM/100 ML BAG IVPB SCH (09:20)
[2020-12-18] MEDS: AMINO ACIDS/PROTEIN HYDROLYS 30 ML LIQUID.PKT NGT SCH (09:20)
[2020-12-18] MEDS: LABETALOL HCL 200 MG TABLET (FP) PO SCH ×2 (09:21→22:37)
[2020-12-18] MEDS: MULTIVITAMINS THER W-MINERALS COMBO TABLET (FP) PO SCH (09:21)
[2020-12-18] MEDS: AMIODARONE HCL 200 MG TABLET PO SCH ×2 (09:21→22:37)
[2020-12-18] MEDS: POLYETHYLENE GLYCOL 3350 119 GM BTL GT SCH (09:22)
[2020-12-18] MEDS: PANTOPRAZOLE SODIUM 40 MG VIAL IVPUSH SCH (09:22)
[2020-12-18] MEDS: THIAMINE HCL 200 MG/2 ML VIAL IVPB SCH (09:22)
[2020-12-18 10:13] LABS: ANISOCYTOSIS 2+; MACROCYTOSIS 0; OVALOCYTE 1+; PLATELET ESTIMATE NORMAL
[2020-12-18] MEDS ORDERED: ACETAMINOPHEN 1000 MG/100 ML VIAL (NON FORMULARY) IVPB ONE ×2 (15:58→19:36)
[2020-12-18] MEDS ORDERED: ALBUTEROL SO4 0.083% IH SOL 2.5 MG/3 ML VIAL.NEB. NEB ONE (18:37)
[2020-12-18] MEDS: CHLORHEXIDINE GLUCONATE 4% CLEANSER FOR DECOLONIZATION TP SCH (22:08)
[2020-12-19 00:22] LABS: HEMATOCRIT 26.5 % (35.4-49); HEMOGLOBIN 8.7 GM/dL (11.7-16.9); MCH 26.1 pg (25.7-33.7); MCHC 32.6 g/dl (32.0-35.9); MEAN CELL VOLUME 79.9 fl (80-96); MEAN PLT VOLUME 8.1 fl (7.5-11.1); PLATELET COUNT 408 K/MM3 (134-434); RBC 3.32 M/mm3 (4.00-5.60); RDW 18.2 % (11.9-15.9); WHITE BLOOD COUNT 13.2 K/mm3 (4.0-10.0)
[2020-12-19 06:32] LABS: ARTERIAL BLD GAS O2 SATURATION 99.4 mmHg (95-98); ARTERIAL BLOOD GAS BASE EXCESS -0.9 mmol/L (-2-2); ARTERIAL BLOOD GAS PO2 182.1 mmHg (80-100); ARTERIAL BLOOD GAS pH 7.499 (7.350-7.450)
[2020-12-19 06:45] LABS: ALLENS TEST POSITIVE
[2020-12-19 06:51] LABS: BASO % 0.5 % (0-2.0); EOS % 0.8 % (0-4.5); HEMATOCRIT 25.3 % (35.4-49); HEMOGLOBIN 8.4 GM/dL (11.7-16.9); LYMPH % 9.5 % (8-40); MCH 26.6 pg (25.7-33.7); MCHC 33.3 g/dl (32.0-35.9); MEAN CELL VOLUME 79.8 fl (80-96); MONO % 6.3 % (3.8-10.2); NEUT % 82.9 % (42.8-82.8); PLATELET COUNT 384 K/MM3 (134-434); RBC 3.17 M/mm3 (4.00-5.60); RDW 18.1 % (11.9-15.9); WHITE BLOOD COUNT 13.3 K/mm3 (4.0-10.0)
[2020-12-19 07:19] LABS: CALCIUM 7.5 mg/dL (8.5-10.1)
[2020-12-19 07:20] LABS: BLOOD UREA NITROGEN 66.1 mg/dL (7-18); MAGNESIUM 2.2 mg/dL (1.8-2.4)
[2020-12-19 07:23] LABS: CREATININE 1.8 mg/dL (0.55-1.3); PHOSPHOROUS 3.9 mg/dL (2.5-4.9)
[2020-12-19 07:24] LABS: BILIRUBIN,TOTAL 0.7 mg/dL (0.2-1)
[2020-12-19 07:25] LABS: TOT PROT 6.7 g/dl (6.4-8.2)
[2020-12-19 07:35] LABS: ALBUMIN 1.8 g/dl (3.4-5.0)
[2020-12-19] MEDS ORDERED: PT OWN MED DRAWER 7, Y5N ONE ×2 (07:59→15:12)
[2020-12-19] MEDS ORDERED: DEXTROSE 5%-WATER 100 ML IVPB ONE (08:00)
[2020-12-19] MEDS ORDERED: ACETAMINOPHEN 1000 MG/100 ML VIAL (NON FORMULARY) IVPB ONE ×2 (08:07→23:17)
[2020-12-19] MEDS: AMINO ACIDS/PROTEIN HYDROLYS 30 ML LIQUID.PKT NGT SCH (09:11)
[2020-12-19] MEDS: CEFTRIAXONE 2 GM in DEXTROSE 5%-WATER 2 GM/100 ML BAG IVPB SCH (09:11)
[2020-12-19] MEDS: MULTIVITAMINS THER W-MINERALS COMBO TABLET (FP) PO SCH (09:11)
[2020-12-19] MEDS: THIAMINE HCL 200 MG/2 ML VIAL IVPB SCH (09:11)
[2020-12-19] MEDS: hydrALAZINE HCL 25 MG TABLET (FP) PO SCH ×3 (09:12→18:46)
[2020-12-19] MEDS: AMIODARONE HCL 200 MG TABLET PO SCH ×2 (09:12→21:23)
[2020-12-19] MEDS: POLYETHYLENE GLYCOL 3350 119 GM BTL GT SCH (09:12)
[2020-12-19] MEDS: PANTOPRAZOLE SODIUM 40 MG VIAL IVPUSH SCH (09:12)
[2020-12-19] MEDS: LABETALOL HCL 200 MG TABLET (FP) PO SCH ×2 (09:12→21:24)
[2020-12-19] MEDS ORDERED: cloNIDine-TTS 0.2 MG/24 HOURS PATCH.TDWK TD SCH (10:00)
[2020-12-19 11:44] LABS: ANISOCYTOSIS 1+; MACROCYTOSIS 0; PLATELET ESTIMATE NORMAL; TARGET CELLS 1+
[2020-12-19] MEDS ORDERED: PANTOPRAZOLE SODIUM 40 MG VIAL IVPUSH SCH (13:00)
[2020-12-19] MEDS: NICARDIPINE 25 MG in DEXTROSE 5%-WATER - 240 ML IVPB SCH ×2 (13:40→18:46)
[2020-12-19] MEDS ORDERED: VANCOMYCIN 1 GM in D5W (PRE-DOCKED) 1,000 MG/250 ML IVPB ONE (13:42)
[2020-12-19] MEDS ORDERED: HEPARIN NA (PORCINE) 5,000 UNITS/ML 1ML VIAL SQ SCH (14:00)
[2020-12-19 14:10] LABS: INR 1.24 (0.83-1.09); PROTHROMBIN TIME (PATIENT) 15.2 SEC (9.7-13.0)
[2020-12-19 14:13] LABS: ACTIVATED PTT 24.5 SECONDS (25.2-36.5)
[2020-12-19] MEDS: VANCOMYCIN/WATER BAGS 1,250 MG/250 ML BAG IVPB SCH (15:19)
[2020-12-19] MEDS ORDERED: ACETAMINOPHEN INJECTION 100 ML IVPB ONE (17:23)
[2020-12-19] MEDS: HEPARIN NA (PORCINE) 5,000 UNITS/ML 1ML VIAL SQ SCH ×2 (17:58→21:23)
[2020-12-19] MEDS: CHLORHEXIDINE GLUCONATE 4% CLEANSER FOR DECOLONIZATION TP SCH (21:23)
[2020-12-20] MEDS: hydrALAZINE HCL 25 MG TABLET (FP) PO SCH ×5 (00:30→23:30)
[2020-12-20] MEDS: HEPARIN NA (PORCINE) 5,000 UNITS/ML 1ML VIAL SQ SCH ×3 (06:00→22:26)
[2020-12-20 07:20] LABS: BASO % 0.5 % (0-2.0); EOS % 1.6 % (0-4.5); HEMATOCRIT 24.4 % (35.4-49); LYMPH % 9.1 % (8-40); MCH 26.9 pg (25.7-33.7); MCHC 32.8 g/dl (32.0-35.9); MEAN PLT VOLUME 8.3 fl (7.5-11.1); MONO % 4.9 % (3.8-10.2); NEUT % 83.9 % (42.8-82.8); PLATELET COUNT 362 K/MM3 (134-434); RBC 2.98 M/mm3 (4.00-5.60); RDW 18.4 % (11.9-15.9); WHITE BLOOD COUNT 17.3 K/mm3 (4.0-10.0)
[2020-12-20 07:37] LABS: CALCIUM 7.4 mg/dL (8.5-10.1)
[2020-12-20 07:38] LABS: ALBUMIN 1.8 g/dl (3.4-5.0); BLOOD UREA NITROGEN 65.2 mg/dL (7-18); MAGNESIUM 2.2 mg/dL (1.8-2.4)
[2020-12-20 07:41] LABS: CREATININE 1.5 mg/dL (0.55-1.3)
[2020-12-20 07:42] LABS: BILIRUBIN,TOTAL 0.6 mg/dL (0.2-1)
[2020-12-20 07:43] LABS: TOT PROT 6.3 g/dl (6.4-8.2)
[2020-12-20] MEDS: AMINO ACIDS/PROTEIN HYDROLYS 30 ML LIQUID.PKT NGT SCH (08:48)
[2020-12-20] MEDS ORDERED: CALCIUM GLUCONATE 10% - 1,000 MG/10 ML VIAL ONE (09:05)
[2020-12-20] MEDS ORDERED: DEXTROSE 5%-WATER 100 ML IVPB ONE (09:06)
[2020-12-20] MEDS ORDERED: DEXTROSE 50%-WATER - 25 GM/50 ML VIAL ONE (09:07)
[2020-12-20] MEDS: CEFTRIAXONE 2 GM in DEXTROSE 5%-WATER 2 GM/100 ML BAG IVPB SCH (10:10)
[2020-12-20] MEDS: PANTOPRAZOLE SODIUM 40 MG VIAL IVPUSH SCH (10:10)
[2020-12-20] MEDS: THIAMINE HCL 200 MG/2 ML VIAL IVPB SCH (10:20)
[2020-12-20 10:21] LABS: ANISOCYTOSIS 1+; MACROCYTOSIS 0; PLATELET ESTIMATE NORMAL
[2020-12-20] MEDS: POLYETHYLENE GLYCOL 3350 119 GM BTL GT SCH (10:24)
[2020-12-20] MEDS: AMIODARONE HCL 200 MG TABLET PO SCH ×2 (10:25→22:26)
[2020-12-20] MEDS: LABETALOL HCL 200 MG TABLET (FP) PO SCH ×2 (10:25→22:26)
[2020-12-20] MEDS: MULTIVITAMINS THER W-MINERALS COMBO TABLET (FP) PO SCH (10:26)
[2020-12-20] MEDS ORDERED: PT OWN MED DRAWER 7, Y5N ONE (14:45)
[2020-12-20] MEDS: VANCOMYCIN/WATER BAGS 1,250 MG/250 ML BAG IVPB SCH (14:48)
[2020-12-20] MEDS: CHLORHEXIDINE GLUCONATE 4% CLEANSER FOR DECOLONIZATION TP SCH (22:26)
[2020-12-21 06:12] LABS: ARTERIAL BLD GAS O2 SATURATION 97.6 mmHg (95-98); ARTERIAL BLOOD GAS BASE EXCESS -2.7 mmol/L (-2-2); ARTERIAL BLOOD GAS PO2 97.2 mmHg (80-100); ARTERIAL BLOOD GAS pH 7.428 (7.350-7.450)
[2020-12-21 06:17] LABS: ALLENS TEST POSITIVE
[2020-12-21] MEDS: HEPARIN NA (PORCINE) 5,000 UNITS/ML 1ML VIAL SQ SCH ×3 (06:25→21:22)
[2020-12-21] MEDS: hydrALAZINE HCL 25 MG TABLET (FP) PO SCH ×5 (06:25→18:46)
[2020-12-21 06:59] LABS: BASO % 0.3 % (0-2.0); EOS % 2.6 % (0-4.5); HEMATOCRIT 27.1 % (35.4-49); HEMOGLOBIN 8.8 GM/dL (11.7-16.9); LYMPH % 9.5 % (8-40); MCH 26.6 pg (25.7-33.7); MCHC 32.6 g/dl (32.0-35.9); MEAN CELL VOLUME 81.5 fl (80-96); MEAN PLT VOLUME 7.8 fl (7.5-11.1); MONO % 4.9 % (3.8-10.2); NEUT % 82.7 % (42.8-82.8); PLATELET COUNT 381 K/MM3 (134-434); RBC 3.32 M/mm3 (4.00-5.60); WHITE BLOOD COUNT 16.4 K/mm3 (4.0-10.0)
[2020-12-21 07:21] LABS: ALBUMIN 1.8 g/dl (3.4-5.0); MAGNESIUM 2.2 mg/dL (1.8-2.4)
[2020-12-21 07:22] LABS: CREATININE 1.6 mg/dL (0.55-1.3); PHOSPHOROUS 4.6 mg/dL (2.5-4.9)
[2020-12-21 07:23] LABS: BILIRUBIN,TOTAL 0.6 mg/dL (0.2-1); TOT PROT 6.2 g/dl (6.4-8.2)
[2020-12-21 08:37] LABS: ANISOCYTOSIS 1+; MACROCYTOSIS 0; PLATELET ESTIMATE NORMAL
[2020-12-21] MEDS ORDERED: SODIUM CHLORIDE 0.45% 1,000 ML IV SCH (08:45)
[2020-12-21] MEDS ORDERED: DEXTROSE 5%-WATER 100 ML IVPB ONE (10:51)
[2020-12-21] MEDS: AMIODARONE HCL 200 MG TABLET PO SCH ×2 (10:53→21:22)
[2020-12-21] MEDS: MULTIVITAMINS THER W-MINERALS COMBO TABLET (FP) PO SCH (10:53)
[2020-12-21] MEDS: LABETALOL HCL 200 MG TABLET (FP) PO SCH ×2 (10:54→21:22)
[2020-12-21] MEDS: CEFTRIAXONE 2 GM in DEXTROSE 5%-WATER 2 GM/100 ML BAG IVPB SCH (10:54)
[2020-12-21] MEDS: THIAMINE HCL 200 MG/2 ML VIAL IVPB SCH (10:55)
[2020-12-21] MEDS: PANTOPRAZOLE SODIUM 40 MG VIAL IVPUSH SCH (11:00)
[2020-12-21] MEDS: POLYETHYLENE GLYCOL 3350 119 GM BTL GT SCH (11:00)
[2020-12-21] MEDS: ARTIFICIAL TEARS (POLYVINYL ALCOHOL) OPTH DROPS OU PRN (11:01)
[2020-12-21] MEDS: AMINO ACIDS/PROTEIN HYDROLYS 30 ML LIQUID.PKT NGT SCH (11:05)
[2020-12-21] MEDS: VANCOMYCIN/WATER BAGS 1,250 MG/250 ML BAG IVPB SCH (14:55)
[2020-12-21] MEDS ORDERED: PT OWN MED DRAWER 7, Y5N ONE (14:55)
[2020-12-21] MEDS: CHLORHEXIDINE GLUCONATE 4% CLEANSER FOR DECOLONIZATION TP SCH (21:22)
[2020-12-22] MEDS: hydrALAZINE HCL 25 MG TABLET (FP) PO SCH ×4 (01:04→18:27)
[2020-12-22] MEDS: HEPARIN NA (PORCINE) 5,000 UNITS/ML 1ML VIAL SQ SCH ×3 (05:27→21:09)
[2020-12-22] MEDS: ACETAMINOPHEN 1000 MG/100 ML VIAL (NON FORMULARY) IVPB PRN ×3 (05:45→18:34)
[2020-12-22 07:15] LABS: ALBUMIN 1.8 g/dl (3.4-5.0); CALCIUM 7.5 mg/dL (8.5-10.1)
[2020-12-22 07:16] LABS: BLOOD UREA NITROGEN 70.5 mg/dL (7-18); MAGNESIUM 2.2 mg/dL (1.8-2.4)
[2020-12-22 07:19] LABS: CREATININE 1.6 mg/dL (0.55-1.3); PHOSPHOROUS 3.4 mg/dL (2.5-4.9)
[2020-12-22 07:20] LABS: BILIRUBIN,TOTAL 0.4 mg/dL (0.2-1); TOT PROT 6.1 g/dl (6.4-8.2)
[2020-12-22 07:28] LABS: BASO % 0.4 % (0-2.0); EOS % 2.5 % (0-4.5); HEMOGLOBIN 8.8 GM/dL (11.7-16.9); LYMPH % 7.9 % (8-40); MCH 26.8 pg (25.7-33.7); MCHC 32.5 g/dl (32.0-35.9); MEAN CELL VOLUME 82.5 fl (80-96); MEAN PLT VOLUME 8.5 fl (7.5-11.1); MONO % 4.2 % (3.8-10.2); PLATELET COUNT 380 K/MM3 (134-434); RBC 3.28 M/mm3 (4.00-5.60); WHITE BLOOD COUNT 15.1 K/mm3 (4.0-10.0)
[2020-12-22] MEDS ORDERED: SODIUM CHLORIDE 0.45% 1,000 ML IV SCH ×2 (08:45→10:30)
[2020-12-22] MEDS ORDERED: DEXTROSE 5%-WATER 100 ML IVPB ONE (09:57)
[2020-12-22] MEDS ORDERED: PT OWN MED DRAWER 7, Y5N ONE (10:00)
[2020-12-22] MEDS: CEFTRIAXONE 2 GM in DEXTROSE 5%-WATER 2 GM/100 ML BAG IVPB SCH (10:23)
[2020-12-22] MEDS: AMINO ACIDS/PROTEIN HYDROLYS 30 ML LIQUID.PKT NGT SCH (10:23)
[2020-12-22] MEDS: PANTOPRAZOLE SODIUM 40 MG VIAL IVPUSH SCH (10:23)
[2020-12-22] MEDS: POLYETHYLENE GLYCOL 3350 119 GM BTL GT SCH (10:24)
[2020-12-22] MEDS: LABETALOL HCL 200 MG TABLET (FP) PO SCH ×2 (10:24→21:08)
[2020-12-22] MEDS: AMIODARONE HCL 200 MG TABLET PO SCH (10:24)
[2020-12-22] MEDS: MULTIVITAMINS THER W-MINERALS COMBO TABLET (FP) PO SCH (10:25)
[2020-12-22] MEDS: THIAMINE HCL 200 MG/2 ML VIAL IVPB SCH (10:25)
[2020-12-22] MEDS: VANCOMYCIN/WATER BAGS 1,250 MG/250 ML BAG IVPB SCH (14:34)
[2020-12-22 20:07] LABS: BLOOD UREA NITROGEN 65.7 mg/dL (7-18); CALCIUM 7.4 mg/dL (8.5-10.1)
[2020-12-22 20:11] LABS: CREATININE 1.4 mg/dL (0.55-1.3)
[2020-12-22] MEDS: CHLORHEXIDINE GLUCONATE 4% CLEANSER FOR DECOLONIZATION TP SCH (21:29)
[2020-12-23] MEDS: ACETAMINOPHEN 1000 MG/100 ML VIAL (NON FORMULARY) IVPB PRN ×3 (02:44→15:45)
[2020-12-23 07:00] LABS: HEMATOCRIT 22.1 % (35.4-49); HEMOGLOBIN 7.4 GM/dL (11.7-16.9); MCH 27.3 pg (25.7-33.7); MCHC 33.2 g/dl (32.0-35.9); MEAN CELL VOLUME 82.4 fl (80-96); MEAN PLT VOLUME 8.5 fl (7.5-11.1); PLATELET COUNT 321 K/MM3 (134-434); RBC 2.69 M/mm3 (4.00-5.60); RDW 19.3 % (11.9-15.9); WHITE BLOOD COUNT 12.8 K/mm3 (4.0-10.0)
[2020-12-23 07:27] LABS: ALBUMIN 1.8 g/dl (3.4-5.0); MAGNESIUM 2.1 mg/dL (1.8-2.4)
[2020-12-23 07:30] LABS: CREATININE 1.3 mg/dL (0.55-1.3)
[2020-12-23 07:31] LABS: PHOSPHOROUS 2.7 mg/dL (2.5-4.9)
[2020-12-23 07:32] LABS: BILIRUBIN,TOTAL 0.5 mg/dL (0.2-1); TOT PROT 5.6 g/dl (6.4-8.2)
[2020-12-23] MEDS ORDERED: DEXTROSE 5%-WATER 100 ML IVPB ONE (08:35)
[2020-12-23] MEDS: PANTOPRAZOLE SODIUM 40 MG VIAL IVPUSH SCH (10:00)
[2020-12-23] MEDS: CEFTRIAXONE 2 GM in DEXTROSE 5%-WATER 2 GM/100 ML BAG IVPB SCH (10:00)
[2020-12-23] MEDS: THIAMINE HCL 200 MG/2 ML VIAL IVPB SCH (10:00)
[2020-12-23] MEDS: AMINO ACIDS/PROTEIN HYDROLYS 30 ML LIQUID.PKT NGT SCH (12:14)
[2020-12-23] MEDS: AMIODARONE HCL 200 MG TABLET NGT SCH ×2 (12:14→15:02)
[2020-12-23] MEDS: hydrALAZINE HCL 25 MG TABLET (FP) PO SCH ×5 (12:15→20:12)
[2020-12-23] MEDS: LABETALOL HCL 200 MG TABLET (FP) PO SCH ×2 (12:15→22:06)
[2020-12-23] MEDS: POLYETHYLENE GLYCOL 3350 119 GM BTL GT SCH ×2 (12:16→15:01)
[2020-12-23] MEDS: MULTIVITAMINS THER W-MINERALS COMBO TABLET (FP) PO SCH ×2 (12:16→15:01)
[2020-12-23] MEDS: VANCOMYCIN/WATER BAGS 1,250 MG/250 ML BAG IVPB SCH (13:08)
[2020-12-23 13:49] LABS: EPI CELLS 10 /uL (0-25.1); HYALINE CASTS 5 /uL (0-3.1); URINE APPEARANCE TURBID; URINE BACTERIA 123 /uL (0-1359); URINE BILIRUBIN NEGATIVE (NEGATIVE); URINE COLOR YELLOW; URINE GLUCOSE (UA) NEGATIVE (NEGATIVE); URINE KETONE NEGATIVE (NEGATIVE); URINE LEUK ESTERASE 1+ (NEGATIVE); URINE NITRITE NEGATIVE (NEGATIVE); URINE PROTEIN 1+ (NEGATIVE); URINE RBC 1851 /uL (0-23.9); URINE UROBILINOGEN 0.2 mg/dL (0.2-1.0); URINE WBC 159 /uL (0-25.8)
[2020-12-23] MEDS: HEPARIN NA (PORCINE) 5,000 UNITS/ML 1ML VIAL SQ SCH ×2 (15:02→20:12)
[2020-12-23 15:49] VITALS: BMI 35.4
[2020-12-23] MEDS: CHLORHEXIDINE GLUCONATE 4% CLEANSER FOR DECOLONIZATION TP SCH (22:06)
[2020-12-24] MEDS: hydrALAZINE HCL 25 MG TABLET (FP) PO SCH ×4 (00:09→17:43)
[2020-12-24] MEDS ORDERED: DEXTROSE 5%-WATER 100 ML IVPB ONE (07:38)
[2020-12-24] MEDS: AMINO ACIDS/PROTEIN HYDROLYS 30 ML LIQUID.PKT NGT SCH (07:48)
[2020-12-24] MEDS: POLYETHYLENE GLYCOL 3350 119 GM BTL GT SCH (09:21)
[2020-12-24] MEDS: MULTIVITAMINS THER W-MINERALS COMBO TABLET (FP) PO SCH (09:21)
[2020-12-24] MEDS: LABETALOL HCL 200 MG TABLET (FP) PO SCH ×2 (09:21→21:48)
[2020-12-24] MEDS: CEFTRIAXONE 2 GM in DEXTROSE 5%-WATER 2 GM/100 ML BAG IVPB SCH (09:23)
[2020-12-24] MEDS: THIAMINE HCL 200 MG/2 ML VIAL IVPB SCH (09:23)
[2020-12-24] MEDS: AMIODARONE HCL 200 MG TABLET NGT SCH ×2 (09:24→13:00)
[2020-12-24] MEDS: PANTOPRAZOLE SODIUM 40 MG VIAL IVPUSH SCH (09:24)
[2020-12-24 09:59] LABS: HEMATOCRIT 22.4 % (35.4-49); HEMOGLOBIN 7.4 GM/dL (11.7-16.9); MCH 27.3 pg (25.7-33.7); MCHC 33.1 g/dl (32.0-35.9); MEAN CELL VOLUME 82.4 fl (80-96); MEAN PLT VOLUME 8.2 fl (7.5-11.1); PLATELET COUNT 313 K/MM3 (134-434); RBC 2.71 M/mm3 (4.00-5.60); RDW 18.8 % (11.9-15.9); WHITE BLOOD COUNT 12.9 K/mm3 (4.0-10.0)
[2020-12-24 10:25] LABS: CALCIUM 7.5 mg/dL (8.5-10.1)
[2020-12-24 10:26] LABS: ALBUMIN 1.7 g/dl (3.4-5.0); BLOOD UREA NITROGEN 45.9 mg/dL (7-18); MAGNESIUM 2.1 mg/dL (1.8-2.4)
[2020-12-24 10:29] LABS: CREATININE 1.2 mg/dL (0.55-1.3); PHOSPHOROUS 3.6 mg/dL (2.5-4.9)
[2020-12-24 10:31] LABS: BILIRUBIN,TOTAL 0.5 mg/dL (0.2-1); TOT PROT 5.4 g/dl (6.4-8.2)
[2020-12-24] MEDS ORDERED: GLUCAGON 1 MG KIT IVPUSH ONE (11:28)
[2020-12-24] MEDS: VANCOMYCIN/WATER BAGS 1,250 MG/250 ML BAG IVPB SCH (14:00)
[2020-12-24] MEDS ORDERED: PT OWN MED DRAWER 7, Y5N ONE (15:51)
[2020-12-24] MEDS: ACETAMINOPHEN 1000 MG/100 ML VIAL (NON FORMULARY) IVPB PRN (17:48)
[2020-12-24] MEDS: HEPARIN NA (PORCINE) 5,000 UNITS/ML 1ML VIAL SQ SCH (21:47)
[2020-12-24] MEDS: CHLORHEXIDINE GLUCONATE 4% CLEANSER FOR DECOLONIZATION TP SCH (21:48)
[2020-12-25] MEDS ORDERED: PROMETHAZINE HCL 25 MG/1 ML VIAL IVPUSH ONE (01:07)
[2020-12-25 06:25] LABS: BASO % 0.9 % (0-2.0); EOS % 3.6 % (0-4.5); HEMATOCRIT 22.8 % (35.4-49); HEMOGLOBIN 7.7 GM/dL (11.7-16.9); LYMPH % 10.4 % (8-40); MCH 27.8 pg (25.7-33.7); MCHC 33.7 g/dl (32.0-35.9); MEAN CELL VOLUME 82.5 fl (80-96); MEAN PLT VOLUME 8.2 fl (7.5-11.1); MONO % 5.4 % (3.8-10.2); NEUT % 79.7 % (42.8-82.8); PLATELET COUNT 291 K/MM3 (134-434); RBC 2.76 M/mm3 (4.00-5.60); RDW 19.2 % (11.9-15.9); WHITE BLOOD COUNT 10.9 K/mm3 (4.0-10.0)
[2020-12-25] MEDS: hydrALAZINE HCL 25 MG TABLET (FP) PO SCH ×4 (06:34→18:19)
[2020-12-25] MEDS: HEPARIN NA (PORCINE) 5,000 UNITS/ML 1ML VIAL SQ SCH ×3 (06:34→21:26)
[2020-12-25 06:35] LABS: ALBUMIN 1.8 g/dl (3.4-5.0); BLOOD UREA NITROGEN 41.9 mg/dL (7-18); CALCIUM 7.2 mg/dL (8.5-10.1)
[2020-12-25 06:38] LABS: PHOSPHOROUS 3.3 mg/dL (2.5-4.9)
[2020-12-25 06:39] LABS: CREATININE 1.1 mg/dL (0.55-1.3)
[2020-12-25 06:40] LABS: BILIRUBIN,TOTAL 0.4 mg/dL (0.2-1); TOT PROT 5.5 g/dl (6.4-8.2)
[2020-12-25] MEDS ORDERED: DEXTROSE 5%-WATER 100 ML IVPB ONE (10:46)
[2020-12-25] MEDS: PANTOPRAZOLE SODIUM 40 MG VIAL IVPUSH SCH (11:06)
[2020-12-25] MEDS: THIAMINE HCL 200 MG/2 ML VIAL IVPB SCH (11:06)
[2020-12-25] MEDS: CEFTRIAXONE 2 GM in DEXTROSE 5%-WATER 2 GM/100 ML BAG IVPB SCH (11:07)
[2020-12-25 12:22] LABS: ANISOCYTOSIS 1+; MACROCYTOSIS 0; PLATELET ESTIMATE NORMAL
[2020-12-25] MEDS: MULTIVITAMINS THER W-MINERALS COMBO TABLET (FP) PO SCH (12:52)
[2020-12-25] MEDS: AMINO ACIDS/PROTEIN HYDROLYS 30 ML LIQUID.PKT NGT SCH (12:52)
[2020-12-25] MEDS: AMIODARONE HCL 200 MG TABLET NGT SCH (12:52)
[2020-12-25] MEDS: POLYETHYLENE GLYCOL 3350 119 GM BTL GT SCH (12:52)
[2020-12-25] MEDS: LABETALOL HCL 200 MG TABLET (FP) PO SCH (12:52)
[2020-12-25] MEDS: VANCOMYCIN/WATER BAGS 1,250 MG/250 ML BAG IVPB SCH (14:00)
[2020-12-25] MEDS ORDERED: PT OWN MED DRAWER 7, Y5N ONE (16:09)
[2020-12-25] MEDS ORDERED: ARTIFICIAL TEARS (POLYVINYL ALCOHOL) OPTH DROPS OU PRN (19:33)
[2020-12-25] MEDS: LABETALOL HCL 200 MG TABLET (FP) GT SCH (21:26)
[2020-12-25] MEDS: CHLORHEXIDINE GLUCONATE 4% CLEANSER FOR DECOLONIZATION TP SCH (21:26)
[2020-12-26] MEDS: hydrALAZINE HCL 25 MG TABLET (FP) GT SCH ×4 (00:51→17:43)
[2020-12-26] MEDS: ACETAMINOPHEN 1000 MG/100 ML VIAL (NON FORMULARY) IVPB PRN ×2 (05:55→10:10)
[2020-12-26] MEDS: HEPARIN NA (PORCINE) 5,000 UNITS/ML 1ML VIAL SQ SCH ×2 (05:58→14:14)
[2020-12-26 06:05] LABS: ALLENS TEST POSITIVE; ARTERIAL BLD GAS O2 SATURATION 98.2 mmHg (95-98); ARTERIAL BLOOD GAS BASE EXCESS -2.3 mmol/L (-2-2); ARTERIAL BLOOD GAS PO2 109.3 mmHg (80-100); ARTERIAL BLOOD GAS pH 7.428 (7.350-7.450)
[2020-12-26 07:06] LABS: EOS % 4.3 % (0-4.5); HEMATOCRIT 22.4 % (35.4-49); HEMOGLOBIN 7.2 GM/dL (11.7-16.9); LYMPH % 11.1 % (8-40); MCHC 32.1 g/dl (32.0-35.9); MEAN CELL VOLUME 84.2 fl (80-96); MEAN PLT VOLUME 8.6 fl (7.5-11.1); NEUT % 77.6 % (42.8-82.8); PLATELET COUNT 266 K/MM3 (134-434); RBC 2.66 M/mm3 (4.00-5.60); RDW 19.5 % (11.9-15.9); WHITE BLOOD COUNT 7.7 K/mm3 (4.0-10.0)
[2020-12-26 07:14] LABS: INR 1.18 (0.83-1.09); PROTHROMBIN TIME (PATIENT) 14.5 SEC (9.7-13.0)
[2020-12-26 07:34] LABS: ALBUMIN 1.8 g/dl (3.4-5.0); BLOOD UREA NITROGEN 41.2 mg/dL (7-18); CALCIUM 7.4 mg/dL (8.5-10.1); MAGNESIUM 2.1 mg/dL (1.8-2.4)
[2020-12-26 07:36] LABS: BILIRUBIN,TOTAL 0.4 mg/dL (0.2-1)
[2020-12-26 07:40] LABS: TOT PROT 5.4 g/dl (6.4-8.2)
[2020-12-26] MEDS ORDERED: DEXTROSE 5%-WATER 100 ML IVPB ONE (09:48)
[2020-12-26] MEDS ORDERED: CEFTRIAXONE 2 GM in DEXTROSE 5%-WATER 2 GM/100 ML BAG IVPB SCH (10:00)
[2020-12-26] MEDS ORDERED: PANTOPRAZOLE SODIUM 40 MG VIAL IVPUSH SCH (10:00)
[2020-12-26] MEDS: AMINO ACIDS/PROTEIN HYDROLYS 30 ML LIQUID.PKT NGT SCH (10:11)
[2020-12-26] MEDS: LABETALOL HCL 200 MG TABLET (FP) GT SCH ×2 (10:11→22:02)
[2020-12-26] MEDS: AMIODARONE HCL 200 MG TABLET NGT SCH (10:13)
[2020-12-26] MEDS ORDERED: VANCOMYCIN/WATER 1,250 MG/250 ML BAG IVPB SCH (10:45)
[2020-12-26 10:50] LABS: ANISOCYTOSIS 1+; MACROCYTOSIS 0; OVALOCYTE 1+; PLATELET ESTIMATE NORMAL
[2020-12-26 10:53] LABS: TOXIC GRANULATION 2+
[2020-12-26] MEDS: POLYETHYLENE GLYCOL 3350 119 GM BTL GT SCH (11:30)
[2020-12-26] MEDS ORDERED: PIPERACILLIN/TAZOBACTAM 3.375 GM VIAL IVPB ONE ×2 (11:31→17:31)
[2020-12-26] MEDS ORDERED: DEXTROSE 5%-WATER - 50 ML IVPB ONE ×2 (11:31→17:31)
[2020-12-26] MEDS: PIPERACILLIN/TAZOB 3.375 GM 3.375 GM in DEXTROSE 5%-WATER - 50 ML IVPB SCH ×2 (11:46→17:43)
[2020-12-26] MEDS: MULTIVIT-MINERALS ORAL LIQUID GT SCH (11:47)
[2020-12-26] MEDS: cloNIDine-TTS 0.2 MG/24 HOURS PATCH.TDWK TD SCH (11:47)
[2020-12-26] MEDS: THIAMINE HCL 200 MG/2 ML VIAL IVPB SCH (11:48)
[2020-12-26] MEDS ORDERED: FLUCONAZOLE 100 MG/D5W 50 ML IVPB SCH (12:30)
[2020-12-26] MEDS: FLUCONAZOLE 100 MG/NS 50 ML IVPB SCH (16:23)
[2020-12-26] MEDS: MANNITOL 25% 12.5 GM/50 ML VIAL IVPB SCH (20:00)
[2020-12-26] MEDS ORDERED: HYDROmorphone HCL 2 MG TABLET PO PRN (22:00)
[2020-12-26] MEDS ORDERED: CHLORHEXIDINE GLUCONATE 4% CLEANSER FOR DECOLONIZATION TP SCH (22:00)
[2020-12-26] MEDS: MUPIROCIN 2% TOPICAL OINTMENT FOR DECOLONIZATION NS SCH (22:03)
[2020-12-26] MEDS: CHLORHEXIDINE GLUCONATE 4% CLEANSER FOR DECOLONIZATION TP SCH (22:03)
[2020-12-27] MEDS: hydrALAZINE HCL 25 MG TABLET (FP) GT SCH ×4 (00:53→18:07)
[2020-12-27] MEDS: PIPERACILLIN/TAZOB 3.375 GM 3.375 GM in DEXTROSE 5%-WATER - 50 ML IVPB SCH ×2 (02:30→10:28)
[2020-12-27] MEDS: MANNITOL 25% 12.5 GM/50 ML VIAL IVPB SCH (04:00)
[2020-12-27] MEDS ORDERED: PIPERACILLIN/TAZOBACTAM 3.375 GM VIAL IVPB ONE ×3 (04:45→23:45)
[2020-12-27] MEDS ORDERED: DEXTROSE 5%-WATER - 50 ML IVPB ONE ×3 (04:46→23:45)
[2020-12-27 06:45] LABS: CALCIUM 7.7 mg/dL (8.5-10.1)
[2020-12-27 06:46] LABS: ALBUMIN 1.9 g/dl (3.4-5.0); BLOOD UREA NITROGEN 36.6 mg/dL (7-18); MAGNESIUM 2.2 mg/dL (1.8-2.4)
[2020-12-27 06:48] LABS: PHOSPHOROUS 3.6 mg/dL (2.5-4.9)
[2020-12-27 06:50] LABS: BILIRUBIN,TOTAL 0.4 mg/dL (0.2-1); TOT PROT 5.9 g/dl (6.4-8.2)
[2020-12-27] MEDS ORDERED: VANCOMYCIN/WATER BAGS 1,250 MG/250 ML BAG IVPB SCH (10:00)
[2020-12-27] MEDS ORDERED: PT OWN MED DRAWER 7, Y5N ONE (10:06)
[2020-12-27] MEDS: AMINO ACIDS/PROTEIN HYDROLYS 30 ML LIQUID.PKT NGT SCH (10:28)
[2020-12-27] MEDS: LABETALOL HCL 200 MG TABLET (FP) GT SCH ×2 (10:29→23:11)
[2020-12-27] MEDS: FLUCONAZOLE 100 MG/NS 50 ML IVPB SCH (10:29)
[2020-12-27] MEDS: AMIODARONE HCL 200 MG TABLET NGT SCH (10:29)
[2020-12-27] MEDS: MULTIVIT-MINERALS ORAL LIQUID GT SCH (10:29)
[2020-12-27] MEDS: MUPIROCIN 2% TOPICAL OINTMENT FOR DECOLONIZATION NS SCH ×2 (10:30→23:10)
[2020-12-27 10:37] LABS: EOS % 4.1 % (0-4.5); HEMATOCRIT 22.6 % (35.4-49); HEMOGLOBIN 7.3 GM/dL (11.7-16.9); LYMPH % 12.6 % (8-40); MCH 27.1 pg (25.7-33.7); MCHC 32.5 g/dl (32.0-35.9); MEAN CELL VOLUME 83.4 fl (80-96); MEAN PLT VOLUME 8.4 fl (7.5-11.1); MONO % 6.6 % (3.8-10.2); NEUT % 75.7 % (42.8-82.8); PLATELET COUNT 261 K/MM3 (134-434); RBC 2.71 M/mm3 (4.00-5.60); RDW 19.9 % (11.9-15.9); WHITE BLOOD COUNT 6.9 K/mm3 (4.0-10.0)
[2020-12-27] MEDS: POLYETHYLENE GLYCOL 3350 119 GM BTL GT SCH (10:43)
[2020-12-27] MEDS: PANTOPRAZOLE SODIUM 40 MG VIAL IVPUSH SCH (10:44)
[2020-12-27 11:10] LABS: ANISOCYTOSIS 3+; MACROCYTOSIS 0; PLATELET ESTIMATE NORMAL; TARGET CELLS 1+
[2020-12-27] MEDS: THIAMINE HCL 200 MG/2 ML VIAL IVPB SCH (13:25)
[2020-12-27 16:02] LABS: EPI CELLS 17 /uL (0-25.1); HYALINE CASTS 13 /uL (0-3.1); URINE APPEARANCE TURBID; URINE BACTERIA 184 /uL (0-1359); URINE BILIRUBIN NEGATIVE (NEGATIVE); URINE COLOR YELLOW; URINE GLUCOSE (UA) NEGATIVE (NEGATIVE); URINE KETONE NEGATIVE (NEGATIVE); URINE LEUK ESTERASE 1+ (NEGATIVE); URINE NITRITE NEGATIVE (NEGATIVE); URINE PROTEIN 2+ (NEGATIVE); URINE UROBILINOGEN 0.2 mg/dL (0.2-1.0); URINE WBC 664 /uL (0-25.8)
[2020-12-27] MEDS ORDERED: oxyCODONE HCL 5 MG TABLET PO PRN (17:14)
[2020-12-27] MEDS ORDERED: ONDANSETRON 4 MG/2 ML VIAL IVPUSH PRN (17:14)
[2020-12-27] MEDS ORDERED: PROPOFOL 20 ML ONE ×3 (17:31→18:35)
[2020-12-27] MEDS ORDERED: ceFAZolin SODIUM 1 GM VIAL IVPB ONE (17:55)
[2020-12-27] MEDS ORDERED: LIDOCAINE 1%/EPI 1:100000 (50 ML MULTI DOSE VIAL) INF ONE (18:00)
[2020-12-27] MEDS ORDERED: ROCURONIUM BROMIDE 50 MG/5 ML SYRINGE ONE (18:11)
[2020-12-27] MEDS ORDERED: SUCCINYLCHOLINE CHLORIDE 200 MG/10 ML SYRINGE ONE (18:12)
[2020-12-27] MEDS ORDERED: THROMBIN (BOVINE) 5,000 UNIT VIAL TP ONE ×2 (18:19→18:20)
[2020-12-27] MEDS ORDERED: LABETALOL HCL 5 MG/1 ML (100MG/20 ML VIAL) ONE (18:25)
[2020-12-27 19:45] LABS: URINE CRYSTALS URIC ACID /hpf; URINE RBC 975 /uL (0-23.9); YEAST NEGATIVE (NEGATIVE)
[2020-12-27] MEDS: CHLORHEXIDINE GLUCONATE 4% CLEANSER FOR DECOLONIZATION TP SCH (23:11)
[2020-12-27] MEDS ORDERED: LABETALOL HCL 5 MG/1 ML (100MG/20 ML VIAL) IVPUSH ONE (23:16)
[2020-12-27] MEDS: VANCOMYCIN/WATER 1,250 MG/250 ML BAG IVPB SCH (23:30)
[2020-12-27] MEDS: MEROPENEM 2 GM in DEXTROSE 5%-WATER 100 ML IVPB SCH (23:30)
[2020-12-27] MEDS ORDERED: MEROPENEM 1 GM VIAL (RESTRICTED TO ID) IVPB ONE (23:44)
[2020-12-27] MEDS ORDERED: DEXTROSE 5%-WATER 100 ML IVPB ONE (23:45)
[2020-12-28] MEDS: PIPERACILLIN/TAZOB 3.375 GM 3.375 GM in DEXTROSE 5%-WATER - 50 ML IVPB SCH ×3 (00:09→09:41)
[2020-12-28] MEDS: hydrALAZINE HCL 25 MG TABLET (FP) GT SCH ×4 (00:11→17:32)
[2020-12-28 00:22] LABS: BASO % 1.3 % (0-2.0); EOS % 4.3 % (0-4.5); HEMOGLOBIN 7.6 GM/dL (11.7-16.9); LYMPH % 12.1 % (8-40); MCH 26.5 pg (25.7-33.7); MCHC 31.6 g/dl (32.0-35.9); MEAN CELL VOLUME 83.8 fl (80-96); MEAN PLT VOLUME 8.2 fl (7.5-11.1); MONO % 6.4 % (3.8-10.2); NEUT % 75.9 % (42.8-82.8); PLATELET COUNT 257 K/MM3 (134-434); RBC 2.86 M/mm3 (4.00-5.60); RDW 20.4 % (11.9-15.9); WHITE BLOOD COUNT 7.7 K/mm3 (4.0-10.0)
[2020-12-28] MEDS: MEROPENEM 2 GM in DEXTROSE 5%-WATER 100 ML IVPB SCH ×2 (03:00→10:01)
[2020-12-28] MEDS ORDERED: MEROPENEM 1 GM VIAL (RESTRICTED TO ID) IVPB ONE (09:31)
[2020-12-28] MEDS ORDERED: DEXTROSE 5%-WATER 100 ML IVPB ONE (09:31)
[2020-12-28] MEDS ORDERED: PT OWN MED DRAWER 7, Y5N ONE (09:31)
[2020-12-28] MEDS ORDERED: DEXTROSE 5%-WATER - 50 ML IVPB ONE (09:32)
[2020-12-28] MEDS ORDERED: PIPERACILLIN/TAZOBACTAM 3.375 GM VIAL IVPB ONE (09:32)
[2020-12-28] MEDS: AMIODARONE HCL 200 MG TABLET NGT SCH (09:39)
[2020-12-28] MEDS: AMINO ACIDS/PROTEIN HYDROLYS 30 ML LIQUID.PKT NGT SCH (09:39)
[2020-12-28] MEDS: MULTIVIT-MINERALS ORAL LIQUID GT SCH (09:39)
[2020-12-28] MEDS: LABETALOL HCL 200 MG TABLET (FP) GT SCH ×2 (09:39→22:19)
[2020-12-28] MEDS: MUPIROCIN 2% TOPICAL OINTMENT FOR DECOLONIZATION NS SCH ×2 (09:45→22:57)
[2020-12-28] MEDS: POLYETHYLENE GLYCOL 3350 119 GM BTL GT SCH (09:45)
[2020-12-28] MEDS: THIAMINE HCL 200 MG/2 ML VIAL IVPB SCH (10:45)
[2020-12-28] MEDS: FLUCONAZOLE 100 MG/NS 50 ML IVPB SCH (10:45)
[2020-12-28] MEDS: PANTOPRAZOLE SODIUM 40 MG VIAL IVPUSH SCH (10:46)
[2020-12-28] MEDS: VANCOMYCIN/WATER 1,250 MG/250 ML BAG IVPB SCH ×2 (11:30→21:19)
[2020-12-28 11:47] LABS: HEMATOCRIT 23.7 % (35.4-49); HEMOGLOBIN 7.6 GM/dL (11.7-16.9); MCH 27.3 pg (25.7-33.7); MCHC 32.2 g/dl (32.0-35.9); MEAN CELL VOLUME 84.7 fl (80-96); MEAN PLT VOLUME 9.1 fl (7.5-11.1); PLATELET COUNT 214 K/MM3 (134-434); RDW 20.5 % (11.9-15.9); WHITE BLOOD COUNT 8.3 K/mm3 (4.0-10.0)
[2020-12-28 12:10] LABS: ALBUMIN 1.8 g/dl (3.4-5.0); BLOOD UREA NITROGEN 34.6 mg/dL (7-18); CALCIUM 7.9 mg/dL (8.5-10.1)
[2020-12-28 12:13] LABS: CREATININE 0.9 mg/dL (0.55-1.3)
[2020-12-28 12:15] LABS: BILIRUBIN,TOTAL 0.5 mg/dL (0.2-1); TOT PROT 5.7 g/dl (6.4-8.2)
[2020-12-28] MEDS: CHLORHEXIDINE GLUCONATE 4% CLEANSER FOR DECOLONIZATION TP SCH (22:19)
[2020-12-29] MEDS: hydrALAZINE HCL 25 MG TABLET (FP) GT SCH ×4 (00:26→17:06)
[2020-12-29] MEDS ORDERED: METOPROLOL TARTRATE 5 MG/5 ML VIAL IVPUSH STA (04:52)
[2020-12-29] MEDS ORDERED: MEROPENEM 1 GM VIAL (RESTRICTED TO ID) IVPB ONE ×2 (08:58→17:52)
[2020-12-29] MEDS ORDERED: DEXTROSE 5%-WATER 100 ML IVPB ONE ×2 (08:59→17:52)
[2020-12-29] MEDS: MEROPENEM 2 GM in DEXTROSE 5%-WATER 100 ML IVPB SCH ×2 (09:08→17:59)
[2020-12-29] MEDS: MUPIROCIN 2% TOPICAL OINTMENT FOR DECOLONIZATION NS SCH ×2 (09:09→22:35)
[2020-12-29] MEDS: AMINO ACIDS/PROTEIN HYDROLYS 30 ML LIQUID.PKT NGT SCH (09:09)
[2020-12-29] MEDS: POLYETHYLENE GLYCOL 3350 119 GM BTL GT SCH (09:09)
[2020-12-29] MEDS ORDERED: PT OWN MED DRAWER 7, Y5N ONE (09:12)
[2020-12-29] MEDS: PANTOPRAZOLE SODIUM 40 MG VIAL IVPUSH SCH (09:15)
[2020-12-29] MEDS: AMIODARONE HCL 200 MG TABLET NGT SCH (09:19)
[2020-12-29] MEDS: MULTIVIT-MINERALS ORAL LIQUID GT SCH (09:19)
[2020-12-29] MEDS: LABETALOL HCL 200 MG TABLET (FP) GT SCH ×2 (09:19→22:11)
[2020-12-29] MEDS ORDERED: VANCOMYCIN/WATER BAGS 1,250 MG/250 ML BAG IVPB SCH (10:00)
[2020-12-29 10:12] LABS: CALCIUM 7.8 mg/dL (8.5-10.1)
[2020-12-29 10:14] LABS: ALBUMIN 1.9 g/dl (3.4-5.0); BLOOD UREA NITROGEN 35.9 mg/dL (7-18)
[2020-12-29 10:17] LABS: CREATININE 0.8 mg/dL (0.55-1.3)
[2020-12-29 10:18] LABS: BILIRUBIN,TOTAL 0.5 mg/dL (0.2-1)
[2020-12-29 10:19] LABS: TOT PROT 5.8 g/dl (6.4-8.2)
[2020-12-29] MEDS: THIAMINE HCL 200 MG/2 ML VIAL IVPB SCH (10:41)
[2020-12-29] MEDS: FLUCONAZOLE 100 MG/NS 50 ML IVPB SCH (10:52)
[2020-12-29 14:38] LABS: BASO % 1.1 % (0-2.0); EOS % 4.2 % (0-4.5); HEMATOCRIT 23.6 % (35.4-49); HEMOGLOBIN 7.4 GM/dL (11.7-16.9); LYMPH % 14.2 % (8-40); MCH 26.9 pg (25.7-33.7); MCHC 31.4 g/dl (32.0-35.9); MEAN CELL VOLUME 85.7 fl (80-96); MEAN PLT VOLUME 8.8 fl (7.5-11.1); MONO % 5.3 % (3.8-10.2); NEUT % 75.2 % (42.8-82.8); PLATELET COUNT 221 K/MM3 (134-434); RBC 2.76 M/mm3 (4.00-5.60); RDW 20.9 % (11.9-15.9); WHITE BLOOD COUNT 7.3 K/mm3 (4.0-10.0)
[2020-12-29 15:56] LABS: ANISOCYTOSIS 0; MACROCYTOSIS 0; OVALOCYTE 1+; PLATELET ESTIMATE NORMAL
[2020-12-29] MEDS: ACETAMINOPHEN 1000 MG/100 ML VIAL (NON FORMULARY) IVPB PRN (20:00)
[2020-12-29] MEDS ORDERED: MEROPENEM 2 GM in DEXTROSE 5%-WATER 100 ML IVPB SCH (22:00)
[2020-12-29] MEDS: CHLORHEXIDINE GLUCONATE 4% CLEANSER FOR DECOLONIZATION TP SCH (22:11)
[2020-12-30] MEDS: MEROPENEM 2 GM in DEXTROSE 5%-WATER 100 ML IVPB SCH ×3 (01:36→17:36)
[2020-12-30] MEDS: hydrALAZINE HCL 25 MG TABLET (FP) GT SCH ×4 (01:36→17:36)
[2020-12-30] MEDS ORDERED: DEXTROSE 5%-WATER 100 ML IVPB ONE ×3 (01:38→17:29)
[2020-12-30] MEDS ORDERED: MEROPENEM 1 GM VIAL (RESTRICTED TO ID) IVPB ONE ×3 (01:38→17:29)
[2020-12-30 07:25] LABS: BLOOD UREA NITROGEN 38.4 mg/dL (7-18); CALCIUM 7.6 mg/dL (8.5-10.1); MAGNESIUM 2.1 mg/dL (1.8-2.4)
[2020-12-30 07:27] LABS: CREATININE 0.8 mg/dL (0.55-1.3)
[2020-12-30 07:29] LABS: BILIRUBIN,TOTAL 0.5 mg/dL (0.2-1); PHOSPHOROUS 2.5 mg/dL (2.5-4.9)
[2020-12-30 07:30] LABS: TOT PROT 5.9 g/dl (6.4-8.2)
[2020-12-30 09:00] LABS: BASO % 1.4 % (0-2.0); EOS % 4.1 % (0-4.5); HEMATOCRIT 25.3 % (35.4-49); HEMOGLOBIN 8.2 GM/dL (11.7-16.9); LYMPH % 18.4 % (8-40); MCH 27.4 pg (25.7-33.7); MCHC 32.6 g/dl (32.0-35.9); MEAN PLT VOLUME 8.6 fl (7.5-11.1); MONO % 6.7 % (3.8-10.2); NEUT % 69.4 % (42.8-82.8); PLATELET COUNT 201 K/MM3 (134-434); RBC 3.01 M/mm3 (4.00-5.60); RDW 21.5 % (11.9-15.9); WHITE BLOOD COUNT 7.6 K/mm3 (4.0-10.0)
[2020-12-30] MEDS ORDERED: PT OWN MED DRAWER 7, Y5N ONE (09:47)
[2020-12-30] MEDS: AMINO ACIDS/PROTEIN HYDROLYS 30 ML LIQUID.PKT NGT SCH (09:53)
[2020-12-30] MEDS: PANTOPRAZOLE SODIUM 40 MG VIAL IVPUSH SCH (09:53)
[2020-12-30] MEDS: LABETALOL HCL 200 MG TABLET (FP) GT SCH ×2 (09:53→21:31)
[2020-12-30] MEDS: POLYETHYLENE GLYCOL 3350 119 GM BTL GT SCH (09:53)
[2020-12-30] MEDS: MUPIROCIN 2% TOPICAL OINTMENT FOR DECOLONIZATION NS SCH ×2 (09:53→21:29)
[2020-12-30] MEDS: MULTIVIT-MINERALS ORAL LIQUID GT SCH (09:53)
[2020-12-30] MEDS ORDERED: VANCOMYCIN 1 GRAM (PRE-DOCKED) 1,000 MG/250 ML BAG IVPB SCH (10:00)
[2020-12-30] MEDS ORDERED: VANCOMYCIN/WATER BAGS 1,250 MG/250 ML BAG IVPB SCH (10:00)
[2020-12-30] MEDS: FLUCONAZOLE 100 MG/NS 50 ML IVPB SCH (12:53)
[2020-12-30 13:02] LABS: OVALOCYTE 1+; TEAR DROP CELLS 1+
[2020-12-30] MEDS: THIAMINE HCL 200 MG/2 ML VIAL IVPB SCH (13:19)
[2020-12-30] MEDS: ENOXAPARIN NA (PORCINE) 40 MG/0.4 ML DISP.SYRIN SQ SCH (13:45)
[2020-12-30] MEDS ORDERED: VANCOMYCIN 1,000 MG in DEXTROSE 5%-WATER - 250 ML IVPB SCH (20:00)
[2020-12-30] MEDS: CHLORHEXIDINE GLUCONATE 4% CLEANSER FOR DECOLONIZATION TP SCH (21:30)
[2020-12-30] MEDS: ACETAMINOPHEN 1000 MG/100 ML VIAL (NON FORMULARY) IVPB PRN (21:32)
[2020-12-31] MEDS: hydrALAZINE HCL 25 MG TABLET (FP) GT SCH ×4 (00:06→17:21)
[2020-12-31] MEDS: MEROPENEM 2 GM in DEXTROSE 5%-WATER 100 ML IVPB SCH ×3 (01:06→17:21)
[2020-12-31] MEDS ORDERED: MEROPENEM 1 GM VIAL (RESTRICTED TO ID) IVPB ONE ×3 (01:31→17:16)
[2020-12-31] MEDS ORDERED: DEXTROSE 5%-WATER 100 ML IVPB ONE ×3 (01:31→17:16)
[2020-12-31 06:46] LABS: BASO % 0.6 % (0-2.0); EOS % 4.8 % (0-4.5); HEMATOCRIT 26.4 % (35.4-49); HEMOGLOBIN 8.6 GM/dL (11.7-16.9); LYMPH % 15.7 % (8-40); MCH 26.9 pg (25.7-33.7); MCHC 32.5 g/dl (32.0-35.9); MEAN CELL VOLUME 82.6 fl (80-96); MEAN PLT VOLUME 8.3 fl (7.5-11.1); MONO % 6.9 % (3.8-10.2); PLATELET COUNT 188 K/MM3 (134-434); RBC 3.19 M/mm3 (4.00-5.60); RDW 20.5 % (11.9-15.9); WHITE BLOOD COUNT 7.1 K/mm3 (4.0-10.0)
[2020-12-31 09:05] LABS: BLOOD UREA NITROGEN 40.7 mg/dL (7-18); CALCIUM 7.4 mg/dL (8.5-10.1)
[2020-12-31 09:09] LABS: CREATININE 0.7 mg/dL (0.55-1.3)
[2020-12-31 09:10] LABS: BILIRUBIN,TOTAL 0.4 mg/dL (0.2-1); TOT PROT 5.8 g/dl (6.4-8.2)
[2020-12-31 09:44] LABS: MAGNESIUM 2.3 mg/dL (1.8-2.4)
[2020-12-31 09:46] LABS: PHOSPHOROUS 2.3 mg/dL (2.5-4.9)
[2020-12-31] MEDS: MUPIROCIN 2% TOPICAL OINTMENT FOR DECOLONIZATION NS SCH (09:53)
[2020-12-31] MEDS: MULTIVIT-MINERALS ORAL LIQUID GT SCH (09:53)
[2020-12-31] MEDS: AMINO ACIDS/PROTEIN HYDROLYS 30 ML LIQUID.PKT NGT SCH (09:53)
[2020-12-31] MEDS: LABETALOL HCL 200 MG TABLET (FP) GT SCH ×2 (09:54→22:17)
[2020-12-31] MEDS: ENOXAPARIN NA (PORCINE) 40 MG/0.4 ML DISP.SYRIN SQ SCH (09:54)
[2020-12-31] MEDS: PANTOPRAZOLE SODIUM 40 MG VIAL IVPUSH SCH (09:54)
[2020-12-31] MEDS: POLYETHYLENE GLYCOL 3350 119 GM BTL GT SCH (09:54)
[2020-12-31] MEDS: THIAMINE HCL 200 MG/2 ML VIAL IVPB SCH (09:54)
[2020-12-31 09:56] LABS: ANISOCYTOSIS 1+; MACROCYTOSIS 0; OVALOCYTE 1+; PLATELET ESTIMATE NORMAL; ROULEAU 1+; TEAR DROP CELLS 0
[2020-12-31] MEDS ORDERED: PT OWN MED DRAWER 7, Y5N ONE (10:03)
[2020-12-31] MEDS: FLUCONAZOLE 100 MG/NS 50 ML IVPB SCH (11:22)
[2020-12-31 18:12] LABS: BF GLUCOSE (CSF ONLY) 51 mg/dL (40-70)
[2020-12-31 19:55] LABS: CSF APPEARANCE HAZY; CSF COLOR PINK
[2020-12-31 19:56] LABS: CSF WBC 36
[2020-12-31] MEDS: CHLORHEXIDINE GLUCONATE 4% CLEANSER FOR DECOLONIZATION TP SCH (22:17)
[2021-01-01] MEDS: hydrALAZINE HCL 25 MG TABLET (FP) GT SCH ×4 (01:18→18:38)
[2021-01-01] MEDS: MEROPENEM 2 GM in DEXTROSE 5%-WATER 100 ML IVPB SCH ×3 (01:19→18:38)
[2021-01-01] MEDS ORDERED: DEXTROSE 5%-WATER 100 ML IVPB ONE ×3 (02:57→18:24)
[2021-01-01] MEDS ORDERED: MEROPENEM 1 GM VIAL (RESTRICTED TO ID) IVPB ONE ×3 (02:57→18:24)
[2021-01-01] MEDS: ACETAMINOPHEN 500 MG TABLET (FP) GT PRN (06:02)
[2021-01-01 06:48] LABS: BASO % 0.9 % (0-2.0); EOS % 5.3 % (0-4.5); HEMATOCRIT 24.5 % (35.4-49); HEMOGLOBIN 8.2 GM/dL (11.7-16.9); LYMPH % 20.6 % (8-40); MCH 27.5 pg (25.7-33.7); MCHC 33.5 g/dl (32.0-35.9); MEAN CELL VOLUME 82.2 fl (80-96); MEAN PLT VOLUME 8.7 fl (7.5-11.1); NEUT % 66.2 % (42.8-82.8); PLATELET COUNT 191 K/MM3 (134-434); RBC 2.98 M/mm3 (4.00-5.60); RDW 21.2 % (11.9-15.9)
[2021-01-01 06:56] LABS: ALBUMIN 1.8 g/dl (3.4-5.0); CALCIUM 7.4 mg/dL (8.5-10.1)
[2021-01-01 06:57] LABS: BLOOD UREA NITROGEN 49.5 mg/dL (7-18); MAGNESIUM 2.1 mg/dL (1.8-2.4)
[2021-01-01 07:00] LABS: PHOSPHOROUS 2.1 mg/dL (2.5-4.9)
[2021-01-01 07:01] LABS: BILIRUBIN,TOTAL 0.4 mg/dL (0.2-1); TOT PROT 5.7 g/dl (6.4-8.2)
[2021-01-01 07:13] LABS: CREATININE 0.9 mg/dL (0.55-1.3)
[2021-01-01] MEDS: FLUCONAZOLE 100 MG/NS 50 ML IVPB SCH (09:31)
[2021-01-01] MEDS ORDERED: PT OWN MED DRAWER 7, Y5N ONE (09:36)
[2021-01-01] MEDS: ENOXAPARIN NA (PORCINE) 40 MG/0.4 ML DISP.SYRIN SQ SCH (09:38)
[2021-01-01] MEDS: MULTIVIT-MINERALS ORAL LIQUID GT SCH (09:38)
[2021-01-01] MEDS: LABETALOL HCL 200 MG TABLET (FP) GT SCH ×2 (09:39→21:52)
[2021-01-01] MEDS: POLYETHYLENE GLYCOL 3350 119 GM BTL GT SCH (09:39)
[2021-01-01] MEDS: THIAMINE HCL 200 MG/2 ML VIAL IVPB SCH (09:39)
[2021-01-01] MEDS: PANTOPRAZOLE SODIUM 40 MG VIAL IVPUSH SCH (09:39)
[2021-01-01] MEDS: NAPH,MB-DB/K PH,MBDB POWDER PACKET PO SCH ×2 (14:46→21:53)
[2021-01-01] MEDS: CHLORHEXIDINE GLUCONATE 4% CLEANSER FOR DECOLONIZATION TP SCH (21:52)
[2021-01-01] MEDS: BANATROL PLUS POWDER PACKET PO SCH (21:52)
[2021-01-02] MEDS: hydrALAZINE HCL 25 MG TABLET (FP) GT SCH ×2 (00:18→06:19)
[2021-01-02] MEDS ORDERED: MEROPENEM 1 GM VIAL (RESTRICTED TO ID) IVPB ONE ×3 (01:12→17:39)
[2021-01-02] MEDS ORDERED: DEXTROSE 5%-WATER 100 ML IVPB ONE ×3 (01:12→17:39)
[2021-01-02] MEDS: MEROPENEM 2 GM in DEXTROSE 5%-WATER 100 ML IVPB SCH ×3 (02:29→17:50)
[2021-01-02] MEDS: BANATROL PLUS POWDER PACKET PO SCH ×3 (06:19→22:45)
[2021-01-02 06:40] LABS: ALBUMIN 1.9 g/dl (3.4-5.0); CALCIUM 7.6 mg/dL (8.5-10.1)
[2021-01-02 06:41] LABS: BLOOD UREA NITROGEN 46.3 mg/dL (7-18); MAGNESIUM 2.2 mg/dL (1.8-2.4)
[2021-01-02 06:43] LABS: CREATININE 0.8 mg/dL (0.55-1.3); PHOSPHOROUS 2.6 mg/dL (2.5-4.9)
[2021-01-02 06:44] LABS: BILIRUBIN,TOTAL 0.5 mg/dL (0.2-1)
[2021-01-02 06:45] LABS: TOT PROT 5.7 g/dl (6.4-8.2)
[2021-01-02] MEDS ORDERED: NAPH,MB-DB/K PH,MBDB POWDER PACKET PO ONE (08:40)
[2021-01-02] MEDS ORDERED: PT OWN MED DRAWER 7, Y5N ONE (08:47)
[2021-01-02] MEDS: cloNIDine-TTS 0.2 MG/24 HOURS PATCH.TDWK TD SCH (09:32)
[2021-01-02] MEDS: MULTIVIT-MINERALS ORAL LIQUID GT SCH (09:32)
[2021-01-02] MEDS: ENOXAPARIN NA (PORCINE) 40 MG/0.4 ML DISP.SYRIN SQ SCH (09:33)
[2021-01-02] MEDS: PANTOPRAZOLE SODIUM 40 MG VIAL IVPUSH SCH (09:33)
[2021-01-02] MEDS: LABETALOL HCL 200 MG TABLET (FP) GT SCH ×2 (09:33→22:45)
[2021-01-02] MEDS: POLYETHYLENE GLYCOL 3350 119 GM BTL GT SCH (09:33)
[2021-01-02] MEDS: THIAMINE HCL 200 MG/2 ML VIAL IVPB SCH (09:33)
[2021-01-02] MEDS: FLUCONAZOLE 100 MG/NS 50 ML IVPB SCH (09:33)
[2021-01-02 11:34] LABS: BASO % 0.8 % (0-2.0); EOS % 5.5 % (0-4.5); HEMATOCRIT 25.7 % (35.4-49); HEMOGLOBIN 8.2 GM/dL (11.7-16.9); LYMPH % 20.3 % (8-40); MCH 26.9 pg (25.7-33.7); MEAN CELL VOLUME 84.2 fl (80-96); MEAN PLT VOLUME 9.5 fl (7.5-11.1); MONO % 8.2 % (3.8-10.2); NEUT % 65.2 % (42.8-82.8); PLATELET COUNT 161 K/MM3 (134-434); RBC 3.05 M/mm3 (4.00-5.60); RDW 21.6 % (11.9-15.9); WHITE BLOOD COUNT 6.7 K/mm3 (4.0-10.0)
[2021-01-02 12:04] LABS: ANISOCYTOSIS 2+; MACROCYTOSIS 0; PLATELET ESTIMATE NORMAL
[2021-01-02] MEDS ORDERED: LISINOPRIL 10 MG TABLET PO ONE (12:57)
[2021-01-02] MEDS: hydrALAZINE HCL 10 MG TABLET PO SCH ×2 (13:25→22:45)
[2021-01-02] MEDS ORDERED: VALSARTAN 40 MG TABLET PO SCH (18:00)
[2021-01-02] MEDS: CHLORHEXIDINE GLUCONATE 4% CLEANSER FOR DECOLONIZATION TP SCH (22:45)
[2021-01-03] MEDS: MEROPENEM 2 GM in DEXTROSE 5%-WATER 100 ML IVPB SCH ×3 (02:57→17:19)
[2021-01-03] MEDS ORDERED: DEXTROSE 5%-WATER 100 ML IVPB ONE ×3 (03:17→17:12)
[2021-01-03] MEDS ORDERED: MEROPENEM 1 GM VIAL (RESTRICTED TO ID) IVPB ONE ×3 (03:17→17:12)
[2021-01-03] MEDS ORDERED: ARTIFICIAL TEARS (POLYVINYL ALCOHOL) OPTH DROPS OU PRN (08:00)
[2021-01-03] MEDS ORDERED: ONDANSETRON 4 MG/2 ML VIAL IVPUSH PRN (08:00)
[2021-01-03] MEDS ORDERED: PT OWN MED DRAWER 7, Y5N ONE ×2 (09:18→12:34)
[2021-01-03] MEDS: ENOXAPARIN NA (PORCINE) 40 MG/0.4 ML DISP.SYRIN SQ SCH (09:24)
[2021-01-03] MEDS: PANTOPRAZOLE SODIUM 40 MG VIAL IVPUSH SCH (09:24)
[2021-01-03] MEDS: LABETALOL HCL 200 MG TABLET (FP) GT SCH ×2 (09:25→21:50)
[2021-01-03] MEDS: MULTIVIT-MINERALS ORAL LIQUID GT SCH (09:25)
[2021-01-03] MEDS: LISINOPRIL 10 MG TABLET PO SCH (09:25)
[2021-01-03] MEDS: POLYETHYLENE GLYCOL 3350 119 GM BTL GT SCH (09:26)
[2021-01-03 09:27] LABS: CSF APPEARANCE CLOUDY; CSF COLOR XANTHOCHROMIC
[2021-01-03] MEDS: THIAMINE HCL 200 MG/2 ML VIAL IVPB SCH (09:27)
[2021-01-03 09:28] LABS: CSF WBC 21
[2021-01-03] MEDS ORDERED: cloNIDine-TTS 0.2 MG/24 HOURS PATCH.TDWK TD SCH (10:00)
[2021-01-03 10:55] LABS: BF GLUCOSE (CSF ONLY) 48 mg/dL (40-70)
[2021-01-03] MEDS: hydrALAZINE HCL 10 MG TABLET PO SCH ×3 (11:10→21:50)
[2021-01-03] MEDS: FLUCONAZOLE 100 MG/NS 50 ML IVPB SCH (12:36)
[2021-01-03] MEDS: BANATROL PLUS POWDER PACKET PO SCH ×2 (15:04→21:50)
[2021-01-03] MEDS: SENNOSIDES 8.8 MG/5 ML BULK BOTTLE PO SCH (21:50)
[2021-01-03] MEDS: CHLORHEXIDINE GLUCONATE 4% CLEANSER FOR DECOLONIZATION TP SCH (21:50)
[2021-01-04] MEDS ORDERED: MEROPENEM 1 GM VIAL (RESTRICTED TO ID) IVPB ONE ×2 (00:57→09:29)
[2021-01-04] MEDS ORDERED: DEXTROSE 5%-WATER 100 ML IVPB ONE ×2 (00:57→09:29)
[2021-01-04] MEDS: MEROPENEM 2 GM in DEXTROSE 5%-WATER 100 ML IVPB SCH ×3 (01:00→17:41)
[2021-01-04] MEDS: BANATROL PLUS POWDER PACKET PO SCH ×4 (06:00→23:09)
[2021-01-04] MEDS: hydrALAZINE HCL 10 MG TABLET PO SCH ×3 (06:03→22:55)
[2021-01-04] MEDS ORDERED: PT OWN MED DRAWER 7, Y5N ONE ×2 (09:32→22:57)
[2021-01-04] MEDS: ENOXAPARIN NA (PORCINE) 40 MG/0.4 ML DISP.SYRIN SQ SCH (09:38)
[2021-01-04] MEDS: PANTOPRAZOLE SODIUM 40 MG VIAL IVPUSH SCH (09:38)
[2021-01-04] MEDS: POLYETHYLENE GLYCOL 3350 119 GM BTL GT SCH (09:39)
[2021-01-04] MEDS: ASCORBIC ACID 500 MG TABLET (FP) PO SCH (09:39)
[2021-01-04] MEDS: LABETALOL HCL 200 MG TABLET (FP) GT SCH ×2 (09:39→22:55)
[2021-01-04] MEDS: LISINOPRIL 10 MG TABLET PO SCH (09:40)
[2021-01-04] MEDS: FERROUS SO4 325 MG TABLET (FP) PO SCH (09:40)
[2021-01-04] MEDS: MULTIVIT-MINERALS ORAL LIQUID GT SCH (09:40)
[2021-01-04] MEDS: FLUCONAZOLE 100 MG/NS 50 ML IVPB SCH (09:41)
[2021-01-04] MEDS: THIAMINE HCL 200 MG/2 ML VIAL IVPB SCH (09:42)
[2021-01-04] MEDS: FOLIC ACID 1 MG TABLET (FP) PO SCH (09:42)
[2021-01-04] MEDS ORDERED: FERROUS SO4/VIT C/FA 1 EACH TABLET.ER PO SCH (10:00)
[2021-01-04 14:21] LABS: BASO % 0.6 % (0-2.0); EOS % 5.9 % (0-4.5); HEMATOCRIT 24.3 % (35.4-49); HEMOGLOBIN 7.9 GM/dL (11.7-16.9); LYMPH % 19.6 % (8-40); MCHC 32.6 g/dl (32.0-35.9); MEAN CELL VOLUME 82.7 fl (80-96); MEAN PLT VOLUME 8.4 fl (7.5-11.1); MONO % 6.5 % (3.8-10.2); NEUT % 67.4 % (42.8-82.8); PLATELET COUNT 159 K/MM3 (134-434); RBC 2.93 M/mm3 (4.00-5.60); RDW 21.1 % (11.9-15.9); WHITE BLOOD COUNT 7.5 K/mm3 (4.0-10.0)
[2021-01-04 14:49] LABS: BLOOD UREA NITROGEN 44.6 mg/dL (7-18); CALCIUM 7.6 mg/dL (8.5-10.1); MAGNESIUM 2.3 mg/dL (1.8-2.4)
[2021-01-04 14:52] LABS: CREATININE 0.7 mg/dL (0.55-1.3)
[2021-01-04 14:53] LABS: PHOSPHOROUS 2.1 mg/dL (2.5-4.9)
[2021-01-04 14:54] LABS: BILIRUBIN,TOTAL 0.6 mg/dL (0.2-1); TOT PROT 5.7 g/dl (6.4-8.2)
[2021-01-04] MEDS: NAPH,MB-DB/K PH,MBDB POWDER PACKET PO SCH (22:55)
[2021-01-04] MEDS: CHLORHEXIDINE GLUCONATE 4% CLEANSER FOR DECOLONIZATION TP SCH (23:07)
[2021-01-04] MEDS: SENNOSIDES 8.8 MG/5 ML BULK BOTTLE PO SCH (23:30)
[2021-01-05] MEDS: MEROPENEM 2 GM in DEXTROSE 5%-WATER 100 ML IVPB SCH ×3 (02:12→17:43)
[2021-01-05] MEDS: hydrALAZINE HCL 10 MG TABLET PO SCH ×3 (05:07→21:10)
[2021-01-05] MEDS: BANATROL PLUS POWDER PACKET PO SCH ×3 (05:08→21:10)
[2021-01-05 07:54] LABS: BASO % 0.8 % (0-2.0); HEMATOCRIT 22.7 % (35.4-49); HEMOGLOBIN 7.5 GM/dL (11.7-16.9); LYMPH % 22.4 % (8-40); MCHC 32.9 g/dl (32.0-35.9); MEAN PLT VOLUME 8.8 fl (7.5-11.1); MONO % 7.1 % (3.8-10.2); NEUT % 63.7 % (42.8-82.8); PLATELET COUNT 157 K/MM3 (134-434); RBC 2.76 M/mm3 (4.00-5.60); RDW 21.2 % (11.9-15.9); WHITE BLOOD COUNT 6.9 K/mm3 (4.0-10.0)
[2021-01-05 07:59] LABS: ALBUMIN 1.8 g/dl (3.4-5.0); BLOOD UREA NITROGEN 40.3 mg/dL (7-18); MAGNESIUM 2.3 mg/dL (1.8-2.4)
[2021-01-05 08:02] LABS: CREATININE 0.7 mg/dL (0.55-1.3); PHOSPHOROUS 2.3 mg/dL (2.5-4.9)
[2021-01-05 08:03] LABS: CALCIUM 7.6 mg/dL (8.5-10.1)
[2021-01-05 08:04] LABS: BILIRUBIN,TOTAL 0.5 mg/dL (0.2-1); TOT PROT 5.2 g/dl (6.4-8.2)
[2021-01-05] MEDS ORDERED: PT OWN MED DRAWER 7, Y5N ONE ×2 (09:23→17:40)
[2021-01-05] MEDS: MULTIVIT-MINERALS ORAL LIQUID GT SCH (09:39)
[2021-01-05] MEDS: FERROUS SO4 325 MG TABLET (FP) PO SCH (09:42)
[2021-01-05] MEDS: ASCORBIC ACID 500 MG TABLET (FP) PO SCH (09:42)
[2021-01-05] MEDS: NAPH,MB-DB/K PH,MBDB POWDER PACKET PO SCH ×2 (09:42→21:10)
[2021-01-05] MEDS: FOLIC ACID 1 MG TABLET (FP) PO SCH (09:42)
[2021-01-05] MEDS: ENOXAPARIN NA (PORCINE) 40 MG/0.4 ML DISP.SYRIN SQ SCH (09:43)
[2021-01-05] MEDS: LABETALOL HCL 200 MG TABLET (FP) GT SCH ×2 (09:43→21:10)
[2021-01-05] MEDS: POLYETHYLENE GLYCOL 3350 119 GM BTL GT SCH (09:43)
[2021-01-05] MEDS: LISINOPRIL 10 MG TABLET PO SCH (09:44)
[2021-01-05] MEDS: FLUCONAZOLE 100 MG/NS 50 ML IVPB SCH (09:45)
[2021-01-05] MEDS: PANTOPRAZOLE SODIUM 40 MG VIAL IVPUSH SCH (09:51)
[2021-01-05] MEDS: THIAMINE HCL 200 MG/2 ML VIAL IVPB SCH (13:43)
[2021-01-05] MEDS: SENNOSIDES 8.8 MG/5 ML BULK BOTTLE PO SCH (21:11)
[2021-01-05] MEDS: CHLORHEXIDINE GLUCONATE 4% CLEANSER FOR DECOLONIZATION TP SCH (21:11)
[2021-01-06] MEDS: MEROPENEM 2 GM in DEXTROSE 5%-WATER 100 ML IVPB SCH ×3 (01:23→17:39)
[2021-01-06] MEDS: BANATROL PLUS POWDER PACKET PO SCH ×3 (05:18→14:00)
[2021-01-06] MEDS: hydrALAZINE HCL 10 MG TABLET PO SCH ×4 (05:19→21:47)
[2021-01-06 07:39] LABS: INR 1.12 (0.83-1.09); PROTHROMBIN TIME (PATIENT) 13.5 SEC (9.7-13.0)
[2021-01-06 07:41] LABS: ACTIVATED PTT 26.1 SECONDS (25.2-36.5)
[2021-01-06 07:48] LABS: BASO % 0.8 % (0-2.0); EOS % 6.2 % (0-4.5); HEMATOCRIT 22.4 % (35.4-49); HEMOGLOBIN 7.5 GM/dL (11.7-16.9); LYMPH % 21.3 % (8-40); MCH 27.5 pg (25.7-33.7); MCHC 33.5 g/dl (32.0-35.9); MEAN CELL VOLUME 82.1 fl (80-96); MEAN PLT VOLUME 8.7 fl (7.5-11.1); MONO % 6.5 % (3.8-10.2); NEUT % 65.2 % (42.8-82.8); PLATELET COUNT 163 K/MM3 (134-434); RBC 2.73 M/mm3 (4.00-5.60); RDW 20.4 % (11.9-15.9); WHITE BLOOD COUNT 6.7 K/mm3 (4.0-10.0)
[2021-01-06 08:00] LABS: CALCIUM 7.4 mg/dL (8.5-10.1)
[2021-01-06 08:01] LABS: BLOOD UREA NITROGEN 36.8 mg/dL (7-18); MAGNESIUM 2.2 mg/dL (1.8-2.4)
[2021-01-06 08:04] LABS: CREATININE 0.7 mg/dL (0.55-1.3); PHOSPHOROUS 2.5 mg/dL (2.5-4.9)
[2021-01-06 08:05] LABS: BILIRUBIN,TOTAL 0.5 mg/dL (0.2-1); TOT PROT 5.5 g/dl (6.4-8.2)
[2021-01-06] MEDS ORDERED: PT OWN MED DRAWER 7, Y5N ONE ×4 (09:56→21:45)
[2021-01-06] MEDS: PANTOPRAZOLE SODIUM 40 MG VIAL IVPUSH SCH (10:07)
[2021-01-06] MEDS: LABETALOL HCL 200 MG TABLET (FP) GT SCH ×2 (10:08→21:47)
[2021-01-06] MEDS: NAPH,MB-DB/K PH,MBDB POWDER PACKET PO SCH ×2 (10:08→21:47)
[2021-01-06] MEDS: FOLIC ACID 1 MG TABLET (FP) PO SCH (10:08)
[2021-01-06] MEDS: ASCORBIC ACID 500 MG TABLET (FP) PO SCH (10:08)
[2021-01-06] MEDS: FERROUS SO4 325 MG TABLET (FP) PO SCH (10:08)
[2021-01-06] MEDS: LISINOPRIL 10 MG TABLET PO SCH (10:08)
[2021-01-06] MEDS: ENOXAPARIN NA (PORCINE) 40 MG/0.4 ML DISP.SYRIN SQ SCH (10:08)
[2021-01-06] MEDS: MULTIVIT-MINERALS ORAL LIQUID GT SCH (10:09)
[2021-01-06] MEDS: FLUCONAZOLE 100 MG/NS 50 ML IVPB SCH (10:10)
[2021-01-06] MEDS: POLYETHYLENE GLYCOL 3350 119 GM BTL GT SCH (10:10)
[2021-01-06 10:45] LABS: CSF APPEARANCE CLEAR; CSF COLOR COLORLESS; CSF WBC 18
[2021-01-06 10:56] LABS: BF GLUCOSE (CSF ONLY) 37 mg/dL (40-70)
[2021-01-06] MEDS: THIAMINE HCL 200 MG/2 ML VIAL IVPB SCH (13:24)
[2021-01-06] MEDS: CHLORHEXIDINE GLUCONATE 4% CLEANSER FOR DECOLONIZATION TP SCH (21:48)
[2021-01-06] MEDS: SENNOSIDES 8.8 MG/5 ML BULK BOTTLE PO SCH (23:00)
[2021-01-07] MEDS: MEROPENEM 2 GM in DEXTROSE 5%-WATER 100 ML IVPB SCH ×3 (01:33→19:11)
[2021-01-07] MEDS: BANATROL PLUS POWDER PACKET PO SCH ×4 (01:34→21:59)
[2021-01-07] MEDS: hydrALAZINE HCL 10 MG TABLET PO SCH ×3 (05:49→21:58)
[2021-01-07 07:16] LABS: BASO % 0.7 % (0-2.0); EOS % 6.8 % (0-4.5); HEMATOCRIT 25.1 % (35.4-49); HEMOGLOBIN 8.5 GM/dL (11.7-16.9); LYMPH % 23.9 % (8-40); MCH 27.7 pg (25.7-33.7); MCHC 33.8 g/dl (32.0-35.9); MEAN CELL VOLUME 82.1 fl (80-96); MEAN PLT VOLUME 8.6 fl (7.5-11.1); MONO % 7.2 % (3.8-10.2); NEUT % 61.4 % (42.8-82.8); PLATELET COUNT 168 K/MM3 (134-434); RBC 3.06 M/mm3 (4.00-5.60); RDW 20.7 % (11.9-15.9); WHITE BLOOD COUNT 6.9 K/mm3 (4.0-10.0)
[2021-01-07 07:41] LABS: ALBUMIN 2.1 g/dl (3.4-5.0); BLOOD UREA NITROGEN 35.8 mg/dL (7-18); CALCIUM 7.5 mg/dL (8.5-10.1); MAGNESIUM 2.1 mg/dL (1.8-2.4)
[2021-01-07 07:44] LABS: CREATININE 0.7 mg/dL (0.55-1.3); PHOSPHOROUS 2.4 mg/dL (2.5-4.9)
[2021-01-07 07:46] LABS: BILIRUBIN,TOTAL 0.4 mg/dL (0.2-1); TOT PROT 5.8 g/dl (6.4-8.2)
[2021-01-07] MEDS ORDERED: NAPH,MB-DB/K PH,MBDB POWDER PACKET PO ONE (08:21)
[2021-01-07] MEDS ORDERED: MEROPENEM 1 GM VIAL (RESTRICTED TO ID) IVPB ONE ×2 (08:59→19:09)
[2021-01-07] MEDS ORDERED: DEXTROSE 5%-WATER 100 ML IVPB ONE ×2 (08:59→19:09)
[2021-01-07] MEDS ORDERED: PT OWN MED DRAWER 7, Y5N ONE ×2 (09:01→21:02)
[2021-01-07] MEDS: ASCORBIC ACID 500 MG TABLET (FP) PO SCH (09:04)
[2021-01-07] MEDS: LABETALOL HCL 200 MG TABLET (FP) GT SCH ×2 (09:05→21:57)
[2021-01-07] MEDS: FERROUS SO4 325 MG TABLET (FP) PO SCH (09:05)
[2021-01-07] MEDS: FOLIC ACID 1 MG TABLET (FP) PO SCH (09:06)
[2021-01-07] MEDS: NAPH,MB-DB/K PH,MBDB POWDER PACKET PO SCH ×2 (09:08→21:58)
[2021-01-07] MEDS: LISINOPRIL 20 MG TABLET PO SCH (09:09)
[2021-01-07] MEDS: MULTIVIT-MINERALS ORAL LIQUID GT SCH (09:09)
[2021-01-07] MEDS: PANTOPRAZOLE SODIUM 40 MG VIAL IVPUSH SCH (09:11)
[2021-01-07] MEDS: THIAMINE HCL 200 MG/2 ML VIAL IVPB SCH (09:11)
[2021-01-07] MEDS ORDERED: SODIUM PHOSPHATE - 30 MM in DEXTROSE 5%-WATER - 250 ML IVPB ONE (10:00)
[2021-01-07 11:26] LABS: ANISOCYTOSIS 1+; MACROCYTOSIS 0; OVALOCYTE 1+; PLATELET ESTIMATE NORMAL
[2021-01-07] MEDS: POLYETHYLENE GLYCOL 3350 119 GM BTL GT SCH (13:26)
[2021-01-07] MEDS: FLUCONAZOLE 100 MG/NS 50 ML IVPB SCH (13:32)
[2021-01-07] MEDS: CHLORHEXIDINE GLUCONATE 4% CLEANSER FOR DECOLONIZATION TP SCH (21:59)
[2021-01-07] MEDS: SENNOSIDES 8.8 MG/5 ML BULK BOTTLE PO SCH (22:00)
[2021-01-08] MEDS: MEROPENEM 2 GM in DEXTROSE 5%-WATER 100 ML IVPB SCH ×3 (01:15→17:49)
[2021-01-08] MEDS: hydrALAZINE HCL 10 MG TABLET PO SCH ×3 (05:31→21:54)
[2021-01-08] MEDS: BANATROL PLUS POWDER PACKET PO SCH (05:32)
[2021-01-08 07:09] LABS: BASO % 0.7 % (0-2.0); EOS % 7.4 % (0-4.5); HEMATOCRIT 23.6 % (35.4-49); LYMPH % 21.3 % (8-40); MCH 27.6 pg (25.7-33.7); MCHC 33.8 g/dl (32.0-35.9); MEAN CELL VOLUME 81.6 fl (80-96); MEAN PLT VOLUME 8.4 fl (7.5-11.1); MONO % 5.6 % (3.8-10.2); PLATELET COUNT 180 K/MM3 (134-434); RBC 2.89 M/mm3 (4.00-5.60); RDW 20.6 % (11.9-15.9); WHITE BLOOD COUNT 6.3 K/mm3 (4.0-10.0)
[2021-01-08 07:16] LABS: BLOOD UREA NITROGEN 33.3 mg/dL (7-18)
[2021-01-08 07:17] LABS: CALCIUM 7.8 mg/dL (8.5-10.1)
[2021-01-08 07:18] LABS: ALBUMIN 2.1 g/dl (3.4-5.0)
[2021-01-08 07:19] LABS: CREATININE 0.6 mg/dL (0.55-1.3)
[2021-01-08 07:21] LABS: PHOSPHOROUS 2.3 mg/dL (2.5-4.9)
[2021-01-08 07:22] LABS: BILIRUBIN,TOTAL 0.5 mg/dL (0.2-1)
[2021-01-08 07:23] LABS: TOT PROT 5.8 g/dl (6.4-8.2)
[2021-01-08] MEDS ORDERED: SODIUM PHOSPHATE - 30 MM in DEXTROSE 5%-WATER - 250 ML IVPB ONE (09:30)
[2021-01-08 09:40] LABS: CSF APPEARANCE CLEAR
[2021-01-08 09:41] LABS: CSF COLOR COLORLESS; CSF WBC 8
[2021-01-08] MEDS: LISINOPRIL 20 MG TABLET PO SCH (09:51)
[2021-01-08] MEDS: FERROUS SO4 325 MG TABLET (FP) PO SCH (09:51)
[2021-01-08] MEDS: MULTIVIT-MINERALS ORAL LIQUID GT SCH (09:52)
[2021-01-08] MEDS: FOLIC ACID 1 MG TABLET (FP) PO SCH (09:52)
[2021-01-08] MEDS: ASCORBIC ACID 500 MG TABLET (FP) PO SCH (09:52)
[2021-01-08] MEDS: NAPH,MB-DB/K PH,MBDB POWDER PACKET PO SCH ×2 (09:52→21:54)
[2021-01-08] MEDS: THIAMINE HCL 200 MG/2 ML VIAL IVPB SCH (09:53)
[2021-01-08] MEDS: LABETALOL HCL 200 MG TABLET (FP) GT SCH ×2 (09:53→21:54)
[2021-01-08] MEDS: PANTOPRAZOLE SODIUM 40 MG VIAL IVPUSH SCH (09:53)
[2021-01-08] MEDS: POLYETHYLENE GLYCOL 3350 119 GM BTL GT SCH (09:55)
[2021-01-08 10:32] LABS: BF GLUCOSE (CSF ONLY) 48 mg/dL (40-70)
[2021-01-08] MEDS: FLUCONAZOLE 100 MG/NS 50 ML IVPB SCH (14:19)
[2021-01-08] MEDS: HEPARIN NA (PORCINE) 5,000 UNITS/ML 1ML VIAL SQ SCH ×2 (14:23→21:54)
[2021-01-08] MEDS ORDERED: MEROPENEM 1 GM VIAL (RESTRICTED TO ID) IVPB ONE ×3 (17:41→17:54)
[2021-01-08] MEDS ORDERED: DEXTROSE 5%-WATER 100 ML IVPB ONE ×2 (17:41→17:52)
[2021-01-08] MEDS: CHLORHEXIDINE GLUCONATE 4% CLEANSER FOR DECOLONIZATION TP SCH (21:54)
[2021-01-08] MEDS: SENNOSIDES 8.8 MG/5 ML BULK BOTTLE PO SCH (21:54)
[2021-01-09] MEDS: MEROPENEM 2 GM in DEXTROSE 5%-WATER 100 ML IVPB SCH ×3 (01:02→17:22)
[2021-01-09] MEDS: hydrALAZINE HCL 10 MG TABLET PO SCH ×3 (06:45→21:56)
[2021-01-09 06:59] LABS: BASO % 0.9 % (0-2.0); EOS % 8.4 % (0-4.5); HEMATOCRIT 22.9 % (35.4-49); HEMOGLOBIN 7.5 GM/dL (11.7-16.9); LYMPH % 26.5 % (8-40); MCH 27.1 pg (25.7-33.7); MCHC 32.9 g/dl (32.0-35.9); MEAN CELL VOLUME 82.3 fl (80-96); MEAN PLT VOLUME 8.3 fl (7.5-11.1); MONO % 6.9 % (3.8-10.2); NEUT % 57.3 % (42.8-82.8); PLATELET COUNT 182 K/MM3 (134-434); RBC 2.78 M/mm3 (4.00-5.60); RDW 20.8 % (11.9-15.9); WHITE BLOOD COUNT 5.1 K/mm3 (4.0-10.0)
[2021-01-09] MEDS: HEPARIN NA (PORCINE) 5,000 UNITS/ML 1ML VIAL SQ SCH ×3 (07:09→21:55)
[2021-01-09 07:24] LABS: BLOOD UREA NITROGEN 30.4 mg/dL (7-18)
[2021-01-09 07:25] LABS: CALCIUM 7.7 mg/dL (8.5-10.1)
[2021-01-09 07:26] LABS: MAGNESIUM 2.1 mg/dL (1.8-2.4)
[2021-01-09 07:29] LABS: CREATININE 0.6 mg/dL (0.55-1.3); PHOSPHOROUS 2.5 mg/dL (2.5-4.9)
[2021-01-09 07:30] LABS: BILIRUBIN,TOTAL 0.5 mg/dL (0.2-1)
[2021-01-09 07:31] LABS: TOT PROT 5.5 g/dl (6.4-8.2)
[2021-01-09] MEDS ORDERED: cloNIDine-TTS 0.2 MG/24 HOURS PATCH.TDWK TD SCH (10:00)
[2021-01-09] MEDS ORDERED: MEROPENEM 1 GM VIAL (RESTRICTED TO ID) IVPB ONE (10:06)
[2021-01-09] MEDS ORDERED: DEXTROSE 5%-WATER 100 ML IVPB ONE (10:06)
[2021-01-09] MEDS ORDERED: PT OWN MED DRAWER 7, Y5N ONE (10:09)
[2021-01-09] MEDS: MULTIVIT-MINERALS ORAL LIQUID GT SCH (10:12)
[2021-01-09] MEDS: FLUCONAZOLE 100 MG/NS 50 ML IVPB SCH (10:12)
[2021-01-09] MEDS: POLYETHYLENE GLYCOL 3350 119 GM BTL GT SCH (10:13)
[2021-01-09] MEDS: FERROUS SO4 325 MG TABLET (FP) PO SCH ×2 (10:13→10:24)
[2021-01-09] MEDS: FOLIC ACID 1 MG TABLET (FP) PO SCH (10:13)
[2021-01-09] MEDS: PANTOPRAZOLE SODIUM 40 MG VIAL IVPUSH SCH (10:14)
[2021-01-09] MEDS: LISINOPRIL 20 MG TABLET PO SCH (10:14)
[2021-01-09] MEDS: LABETALOL HCL 200 MG TABLET (FP) GT SCH ×2 (10:14→21:56)
[2021-01-09] MEDS: NAPH,MB-DB/K PH,MBDB POWDER PACKET PO SCH ×2 (10:14→21:56)
[2021-01-09] MEDS: ASCORBIC ACID 500 MG TABLET (FP) PO SCH (10:15)
[2021-01-09] MEDS: THIAMINE HCL 200 MG/2 ML VIAL IVPB SCH (10:22)
[2021-01-09] MEDS ORDERED: IRON SUCROSE INJECTION 100 MG in SODIUM CHLORIDE 95 ML IVPB ONE (12:00)
[2021-01-09] MEDS: CHLORHEXIDINE GLUCONATE 4% CLEANSER FOR DECOLONIZATION TP SCH (21:56)
[2021-01-09] MEDS: ACETAMINOPHEN 500 MG TABLET (FP) GT PRN (21:57)
[2021-01-09] MEDS: SENNOSIDES 8.8 MG/5 ML BULK BOTTLE PO SCH (21:57)
[2021-01-10] MEDS ORDERED: DEXTROSE 5%-WATER 100 ML IVPB ONE ×2 (02:43→17:20)
[2021-01-10] MEDS ORDERED: MEROPENEM 1 GM VIAL (RESTRICTED TO ID) IVPB ONE ×2 (02:43→17:19)
[2021-01-10] MEDS: MEROPENEM 2 GM in DEXTROSE 5%-WATER 100 ML IVPB SCH ×4 (02:48→17:29)
[2021-01-10] MEDS: HEPARIN NA (PORCINE) 5,000 UNITS/ML 1ML VIAL SQ SCH ×3 (05:40→21:28)
[2021-01-10] MEDS: hydrALAZINE HCL 10 MG TABLET PO SCH (05:40)
[2021-01-10 07:03] LABS: BASO % 0.8 % (0-2.0); EOS % 10.8 % (0-4.5); LYMPH % 28.3 % (8-40); MCH 27.7 pg (25.7-33.7); MCHC 33.4 g/dl (32.0-35.9); MEAN CELL VOLUME 82.9 fl (80-96); MEAN PLT VOLUME 8.3 fl (7.5-11.1); MONO % 7.2 % (3.8-10.2); NEUT % 52.9 % (42.8-82.8); PLATELET COUNT 177 K/MM3 (134-434); RBC 2.89 M/mm3 (4.00-5.60); RDW 20.6 % (11.9-15.9); WHITE BLOOD COUNT 4.3 K/mm3 (4.0-10.0)
[2021-01-10 07:37] LABS: BLOOD UREA NITROGEN 31.4 mg/dL (7-18); CALCIUM 7.7 mg/dL (8.5-10.1)
[2021-01-10 07:40] LABS: CREATININE 0.5 mg/dL (0.55-1.3); PHOSPHOROUS 2.4 mg/dL (2.5-4.9)
[2021-01-10 07:42] LABS: BILIRUBIN,TOTAL 0.4 mg/dL (0.2-1); TOT PROT 5.6 g/dl (6.4-8.2)
[2021-01-10] MEDS ORDERED: PT OWN MED DRAWER 7, Y5N ONE ×2 (09:28→21:10)
[2021-01-10] MEDS: THIAMINE HCL 200 MG/2 ML VIAL IVPB SCH (09:35)
[2021-01-10] MEDS: MULTIVIT-MINERALS ORAL LIQUID GT SCH (09:42)
[2021-01-10] MEDS: LABETALOL HCL 200 MG TABLET (FP) GT SCH ×2 (09:43→21:29)
[2021-01-10] MEDS: FOLIC ACID 1 MG TABLET (FP) PO SCH (09:43)
[2021-01-10] MEDS: PANTOPRAZOLE SODIUM 40 MG VIAL IVPUSH SCH (09:44)
[2021-01-10] MEDS: ASCORBIC ACID 500 MG TABLET (FP) PO SCH (09:44)
[2021-01-10] MEDS: LISINOPRIL 20 MG TABLET PO SCH (09:44)
[2021-01-10] MEDS: NAPH,MB-DB/K PH,MBDB POWDER PACKET PO SCH (09:44)
[2021-01-10] MEDS: POLYETHYLENE GLYCOL 3350 119 GM BTL GT SCH (09:45)
[2021-01-10] MEDS ORDERED: ASCORBIC ACID 500 MG TABLET (FP) GT SCH (09:58)
[2021-01-10] MEDS ORDERED: FERROUS SO4 300 MG/5 ML ORAL SOLN UNIT DOSE CUPS PO SCH (10:00)
[2021-01-10] MEDS ORDERED: ASCORBIC ACID 250 MG TABLET (FP) GT SCH (10:00)
[2021-01-10] MEDS ORDERED: ASCORBIC ACID 500 MG/5 ML UNIT DOSE CUP PO SCH (10:15)
[2021-01-10] MEDS: NAPH,MB-DB/K PH,MBDB POWDER PACKET GT SCH ×2 (10:20→21:30)
[2021-01-10] MEDS: LISINOPRIL 20 MG TABLET GT SCH (10:20)
[2021-01-10] MEDS: FOLIC ACID 1 MG TABLET (FP) GT SCH (10:20)
[2021-01-10] MEDS: ASCORBIC ACID 500 MG/5 ML UNIT DOSE CUP GT SCH (10:21)
[2021-01-10] MEDS: hydrALAZINE HCL 10 MG TABLET GT SCH ×2 (13:29→21:28)
[2021-01-10 18:17] LABS: CSF APPEARANCE CLEAR; CSF COLOR COLORLESS; CSF WBC 4
[2021-01-10] MEDS: CHLORHEXIDINE GLUCONATE 4% CLEANSER FOR DECOLONIZATION TP SCH (21:29)
[2021-01-10] MEDS: SENNOSIDES 8.8 MG/5 ML BULK BOTTLE GT SCH (21:30)
[2021-01-11] MEDS: MEROPENEM 2 GM in DEXTROSE 5%-WATER 100 ML IVPB SCH ×3 (03:06→18:30)
[2021-01-11] MEDS: hydrALAZINE HCL 10 MG TABLET GT SCH ×3 (06:05→21:47)
[2021-01-11] MEDS: HEPARIN NA (PORCINE) 5,000 UNITS/ML 1ML VIAL SQ SCH ×3 (06:05→21:47)
[2021-01-11 06:25] LABS: BASO % 0.7 % (0-2.0); EOS % 9.4 % (0-4.5); HEMATOCRIT 23.9 % (35.4-49); HEMOGLOBIN 8.2 GM/dL (11.7-16.9); LYMPH % 29.8 % (8-40); MCHC 34.2 g/dl (32.0-35.9); MEAN PLT VOLUME 7.9 fl (7.5-11.1); MONO % 7.3 % (3.8-10.2); NEUT % 52.8 % (42.8-82.8); PLATELET COUNT 185 K/MM3 (134-434); RBC 2.91 M/mm3 (4.00-5.60); RDW 20.6 % (11.9-15.9); WHITE BLOOD COUNT 5.7 K/mm3 (4.0-10.0)
[2021-01-11 06:47] LABS: ALBUMIN 2.1 g/dl (3.4-5.0); BLOOD UREA NITROGEN 28.2 mg/dL (7-18); CALCIUM 7.7 mg/dL (8.5-10.1)
[2021-01-11 06:48] LABS: MAGNESIUM 1.8 mg/dL (1.8-2.4)
[2021-01-11 06:50] LABS: CREATININE 0.6 mg/dL (0.55-1.3)
[2021-01-11 06:51] LABS: PHOSPHOROUS 2.5 mg/dL (2.5-4.9); TOT PROT 5.8 g/dl (6.4-8.2)
[2021-01-11 06:53] LABS: BILIRUBIN,TOTAL 0.6 mg/dL (0.2-1)
[2021-01-11] MEDS: FERROUS SO4 300 MG/5 ML ORAL SOLN UNIT DOSE CUPS GT SCH (10:11)
[2021-01-11] MEDS: MULTIVIT-MINERALS ORAL LIQUID GT SCH (10:11)
[2021-01-11] MEDS: FOLIC ACID 1 MG TABLET (FP) GT SCH (10:11)
[2021-01-11] MEDS: LABETALOL HCL 200 MG TABLET (FP) GT SCH ×2 (10:12→21:47)
[2021-01-11] MEDS: LISINOPRIL 20 MG TABLET GT SCH (10:12)
[2021-01-11] MEDS: NAPH,MB-DB/K PH,MBDB POWDER PACKET GT SCH ×2 (10:12→21:47)
[2021-01-11] MEDS: POLYETHYLENE GLYCOL 3350 119 GM BTL GT SCH (10:12)
[2021-01-11] MEDS: PANTOPRAZOLE SODIUM 40 MG VIAL IVPUSH SCH (10:12)
[2021-01-11] MEDS: THIAMINE HCL 200 MG/2 ML VIAL IVPB SCH (10:13)
[2021-01-11] MEDS: ASCORBIC ACID 500 MG/5 ML UNIT DOSE CUP GT SCH (10:13)
[2021-01-11] MEDS ORDERED: PT OWN MED DRAWER 7, Y5N ONE (13:55)
[2021-01-11] MEDS ORDERED: LORazepam 2 MG/ML SDV VIAL IVPUSH ONE (17:03)
[2021-01-11] MEDS: ACETAMINOPHEN 500 MG TABLET (FP) GT PRN (19:04)
[2021-01-11] MEDS: CHLORHEXIDINE GLUCONATE 4% CLEANSER FOR DECOLONIZATION TP SCH (21:47)
[2021-01-11] MEDS: SENNOSIDES 8.8 MG/5 ML BULK BOTTLE GT SCH (21:48)
[2021-01-12] MEDS: MEROPENEM 2 GM in DEXTROSE 5%-WATER 100 ML IVPB SCH ×3 (04:32→17:08)
[2021-01-12 06:31] LABS: BASO % 0.8 % (0-2.0); EOS % 8.8 % (0-4.5); HEMATOCRIT 23.9 % (35.4-49); HEMOGLOBIN 8.3 GM/dL (11.7-16.9); LYMPH % 32.3 % (8-40); MCH 28.3 pg (25.7-33.7); MCHC 34.6 g/dl (32.0-35.9); MEAN CELL VOLUME 81.6 fl (80-96); MEAN PLT VOLUME 7.8 fl (7.5-11.1); NEUT % 52.1 % (42.8-82.8); PLATELET COUNT 175 K/MM3 (134-434); RBC 2.93 M/mm3 (4.00-5.60); RDW 20.5 % (11.9-15.9); WHITE BLOOD COUNT 5.3 K/mm3 (4.0-10.0)
[2021-01-12] MEDS: HEPARIN NA (PORCINE) 5,000 UNITS/ML 1ML VIAL SQ SCH ×3 (06:31→21:44)
[2021-01-12] MEDS: hydrALAZINE HCL 10 MG TABLET GT SCH ×3 (06:31→21:44)
[2021-01-12 06:47] LABS: CALCIUM 7.3 mg/dL (8.5-10.1)
[2021-01-12 06:48] LABS: ALBUMIN 2.1 g/dl (3.4-5.0); MAGNESIUM 1.8 mg/dL (1.8-2.4)
[2021-01-12 06:51] LABS: CREATININE 0.6 mg/dL (0.55-1.3); PHOSPHOROUS 2.3 mg/dL (2.5-4.9)
[2021-01-12 06:53] LABS: BILIRUBIN,TOTAL 0.4 mg/dL (0.2-1); TOT PROT 5.8 g/dl (6.4-8.2)
[2021-01-12] MEDS ORDERED: DEXTROSE 5%-WATER 100 ML IVPB ONE (09:55)
[2021-01-12] MEDS ORDERED: MEROPENEM 1 GM VIAL (RESTRICTED TO ID) IVPB ONE (09:55)
[2021-01-12] MEDS ORDERED: PT OWN MED DRAWER 7, Y5N ONE (09:56)
[2021-01-12] MEDS: LABETALOL HCL 200 MG TABLET (FP) GT SCH ×2 (10:04→21:44)
[2021-01-12] MEDS: FOLIC ACID 1 MG TABLET (FP) GT SCH (10:05)
[2021-01-12] MEDS: LISINOPRIL 20 MG TABLET GT SCH (10:05)
[2021-01-12] MEDS: THIAMINE HCL 200 MG/2 ML VIAL IVPB SCH (10:10)
[2021-01-12] MEDS: MULTIVIT-MINERALS ORAL LIQUID GT SCH (10:14)
[2021-01-12] MEDS: FERROUS SO4 300 MG/5 ML ORAL SOLN UNIT DOSE CUPS GT SCH (10:14)
[2021-01-12] MEDS: ASCORBIC ACID 500 MG/5 ML UNIT DOSE CUP GT SCH (10:15)
[2021-01-12] MEDS: POLYETHYLENE GLYCOL 3350 119 GM BTL GT SCH (10:15)
[2021-01-12] MEDS: NAPH,MB-DB/K PH,MBDB POWDER PACKET GT SCH ×2 (10:15→21:43)
[2021-01-12] MEDS: PANTOPRAZOLE SODIUM 40 MG VIAL IVPUSH SCH (10:15)
[2021-01-12] MEDS: CHLORHEXIDINE GLUCONATE 4% CLEANSER FOR DECOLONIZATION TP SCH (21:44)
[2021-01-12] MEDS: SENNOSIDES 8.8 MG/5 ML BULK BOTTLE GT SCH (21:45)
[2021-01-13] MEDS: MEROPENEM 2 GM in DEXTROSE 5%-WATER 100 ML IVPB SCH ×3 (01:01→17:45)
[2021-01-13] MEDS: HEPARIN NA (PORCINE) 5,000 UNITS/ML 1ML VIAL SQ SCH (06:14)
[2021-01-13] MEDS: hydrALAZINE HCL 10 MG TABLET GT SCH (06:15)
[2021-01-13 07:22] LABS: BASO % 0.7 % (0-2.0); EOS % 8.2 % (0-4.5); HEMATOCRIT 25.1 % (35.4-49); HEMOGLOBIN 8.6 GM/dL (11.7-16.9); LYMPH % 30.3 % (8-40); MCH 28.1 pg (25.7-33.7); MCHC 34.3 g/dl (32.0-35.9); MEAN CELL VOLUME 82.1 fl (80-96); MEAN PLT VOLUME 8.3 fl (7.5-11.1); MONO % 5.9 % (3.8-10.2); NEUT % 54.9 % (42.8-82.8); PLATELET COUNT 181 K/MM3 (134-434); RBC 3.05 M/mm3 (4.00-5.60); RDW 20.6 % (11.9-15.9); WHITE BLOOD COUNT 5.3 K/mm3 (4.0-10.0)
[2021-01-13 07:41] LABS: ALBUMIN 2.3 g/dl (3.4-5.0); CALCIUM 7.9 mg/dL (8.5-10.1)
[2021-01-13 07:42] LABS: BLOOD UREA NITROGEN 30.8 mg/dL (7-18)
[2021-01-13 07:45] LABS: CREATININE 0.6 mg/dL (0.55-1.3); PHOSPHOROUS 2.8 mg/dL (2.5-4.9)
[2021-01-13 07:46] LABS: BILIRUBIN,TOTAL 0.5 mg/dL (0.2-1); TOT PROT 6.3 g/dl (6.4-8.2)
[2021-01-13] MEDS ORDERED: DEXTROSE 5%-WATER 100 ML IVPB ONE ×2 (10:11→16:52)
[2021-01-13] MEDS ORDERED: MEROPENEM 1 GM VIAL (RESTRICTED TO ID) IVPB ONE ×2 (10:11→16:52)
[2021-01-13] MEDS: THIAMINE HCL 200 MG/2 ML VIAL IVPB SCH (10:19)
[2021-01-13] MEDS: PANTOPRAZOLE SODIUM 40 MG VIAL IVPUSH SCH (10:19)
[2021-01-13] MEDS: NAPH,MB-DB/K PH,MBDB POWDER PACKET GT SCH ×2 (10:20→21:01)
[2021-01-13] MEDS: FERROUS SO4 300 MG/5 ML ORAL SOLN UNIT DOSE CUPS GT SCH (10:20)
[2021-01-13] MEDS: POLYETHYLENE GLYCOL 3350 119 GM BTL GT SCH (10:20)
[2021-01-13] MEDS: FOLIC ACID 1 MG TABLET (FP) GT SCH (10:20)
[2021-01-13] MEDS: MULTIVIT-MINERALS ORAL LIQUID GT SCH (10:20)
[2021-01-13] MEDS: LISINOPRIL 20 MG TABLET GT SCH (10:20)
[2021-01-13] MEDS: LABETALOL HCL 200 MG TABLET (FP) GT SCH ×2 (10:20→21:01)
[2021-01-13] MEDS: ASCORBIC ACID 500 MG/5 ML UNIT DOSE CUP GT SCH (10:21)
[2021-01-13] MEDS ORDERED: PT OWN MED DRAWER 7, Y5N ONE ×2 (10:31→16:53)
[2021-01-13] MEDS ORDERED: LISINOPRIL 20 MG TABLET GT SCH (11:07)
[2021-01-13] MEDS ORDERED: amLODIPine BESYLATE 5 MG TABLET (FP) PO SCH (12:15)
[2021-01-13] MEDS: hydrALAZINE HCL 25 MG TABLET (FP) GT SCH (21:00)
[2021-01-13] MEDS: CHLORHEXIDINE GLUCONATE 4% CLEANSER FOR DECOLONIZATION TP SCH (21:00)
[2021-01-13] MEDS: SENNOSIDES 8.8 MG/5 ML BULK BOTTLE GT SCH (21:01)
[2021-01-14] MEDS: MEROPENEM 2 GM in DEXTROSE 5%-WATER 100 ML IVPB SCH ×2 (01:20→09:13)
[2021-01-14 07:23] LABS: BASO % 0.6 % (0-2.0); EOS % 7.7 % (0-4.5); HEMOGLOBIN 9.2 GM/dL (11.7-16.9); LYMPH % 27.8 % (8-40); MCH 28.1 pg (25.7-33.7); MEAN CELL VOLUME 82.8 fl (80-96); MONO % 6.1 % (3.8-10.2); NEUT % 57.8 % (42.8-82.8); PLATELET COUNT 182 K/MM3 (134-434); RBC 3.26 M/mm3 (4.00-5.60); RDW 20.7 % (11.9-15.9); WHITE BLOOD COUNT 5.6 K/mm3 (4.0-10.0)
[2021-01-14 07:40] LABS: ALBUMIN 2.4 g/dl (3.4-5.0); BLOOD UREA NITROGEN 27.4 mg/dL (7-18); CALCIUM 8.1 mg/dL (8.5-10.1)
[2021-01-14 07:41] LABS: MAGNESIUM 2.1 mg/dL (1.8-2.4)
[2021-01-14 07:43] LABS: CREATININE 0.5 mg/dL (0.55-1.3); PHOSPHOROUS 3.5 mg/dL (2.5-4.9)
[2021-01-14 07:44] LABS: BILIRUBIN,TOTAL 0.7 mg/dL (0.2-1); TOT PROT 6.3 g/dl (6.4-8.2)
[2021-01-14] MEDS ORDERED: DEXTROSE 5%-WATER 100 ML IVPB ONE (09:06)
[2021-01-14] MEDS ORDERED: MEROPENEM 1 GM VIAL (RESTRICTED TO ID) IVPB ONE (09:06)
[2021-01-14] MEDS ORDERED: PT OWN MED DRAWER 7, Y5N ONE ×4 (09:10→21:41)
[2021-01-14] MEDS: PANTOPRAZOLE SODIUM 40 MG VIAL IVPUSH SCH (09:13)
[2021-01-14] MEDS: THIAMINE HCL 200 MG/2 ML VIAL IVPB SCH (09:13)
[2021-01-14] MEDS: FERROUS SO4 300 MG/5 ML ORAL SOLN UNIT DOSE CUPS GT SCH (09:31)
[2021-01-14] MEDS: MULTIVIT-MINERALS ORAL LIQUID GT SCH (09:31)
[2021-01-14] MEDS: FOLIC ACID 1 MG TABLET (FP) GT SCH (09:31)
[2021-01-14] MEDS: hydrALAZINE HCL 25 MG TABLET (FP) GT SCH ×2 (09:31→21:05)
[2021-01-14] MEDS: ASCORBIC ACID 500 MG/5 ML UNIT DOSE CUP GT SCH (09:32)
[2021-01-14] MEDS: POLYETHYLENE GLYCOL 3350 119 GM BTL GT SCH (09:32)
[2021-01-14] MEDS: NAPH,MB-DB/K PH,MBDB POWDER PACKET GT SCH ×2 (09:32→21:05)
[2021-01-14] MEDS: LABETALOL HCL 200 MG TABLET (FP) GT SCH ×2 (09:32→21:07)
[2021-01-14] MEDS ORDERED: GENTAMICIN SO4 80 MG/2 ML VIAL ONE (10:51)
[2021-01-14] MEDS ORDERED: LIDOCAINE 1%/EPI 1:100000 (50 ML MULTI DOSE VIAL) ONE (10:51)
[2021-01-14] MEDS ORDERED: THROMBIN (BOVINE) 20,000 UNIT VIAL TP ONE (10:51)
[2021-01-14] MEDS ORDERED: BUPIVACAINE HCL 200 ML ONE (10:51)
[2021-01-14] MEDS ORDERED: fentaNYL CITRATE 250 MCG/5 ML VIAL ONE (11:53)
[2021-01-14] MEDS ORDERED: PROPOFOL 20 ML ONE ×2 (11:53→12:42)
[2021-01-14] MEDS ORDERED: LIDOCAINE HCL/PF 2% SDV 5ML VIAL ONE (11:53)
[2021-01-14] MEDS ORDERED: EPHEDRINE SULFATE/0.9% NACL/PF 50 MG/10 ML SYRINGE NR ONE (11:53)
[2021-01-14] MEDS ORDERED: ROCURONIUM BROMIDE 50 MG/5 ML SYRINGE ONE ×2 (11:54→12:31)
[2021-01-14] MEDS ORDERED: MIDAZOLAM HCL 2 MG/2 ML SINGLE DOSE VIAL ONE (11:54)
[2021-01-14] MEDS ORDERED: BENZOIN/ALOE VERA/STORAX/TOLU 58 ML BOTTLE ONE (12:22)
[2021-01-14] MEDS ORDERED: ceFAZolin SODIUM 1 GM VIAL IVPB ONE (12:28)
[2021-01-14] MEDS ORDERED: ceFAZolin SODIUM 1 GM VIAL ONE (12:30)
[2021-01-14] MEDS ORDERED: LIDOCAINE 1%/EPI 1:100000 (50 ML MULTI DOSE VIAL) INF ONE (12:33)
[2021-01-14] MEDS ORDERED: DEXAMETHASONE SOD PHOSPHATE 4 MG/1 ML VIAL ONE (12:35)
[2021-01-14] MEDS ORDERED: THROMBIN (BOVINE) 5,000 UNIT VIAL TP ONE (12:59)
[2021-01-14] MEDS ORDERED: GELATIN, ABSORBABLE 100 EACH SPONGE TP ONE (12:59)
[2021-01-14] MEDS ORDERED: NEOSTIGMINE METHYLSULFATE 0.5 MG/ML - 10 ML MDV ONE (13:14)
[2021-01-14] MEDS ORDERED: GLYCOPYRROLATE 0.2 MG/1 ML VIAL ONE (13:14)
[2021-01-14] MEDS ORDERED: ONDANSETRON 4 MG/2 ML VIAL IVPUSH PRN ×2 (14:39→15:12)
[2021-01-14] MEDS ORDERED: ARTIFICIAL TEARS (POLYVINYL ALCOHOL) OPTH DROPS OU PRN (15:12)
[2021-01-14] MEDS ORDERED: ACETAMINOPHEN 500 MG TABLET (FP) GT PRN (15:12)
[2021-01-14] MEDS: SODIUM CHLORIDE 1,000 ML IV SCH (15:30)
[2021-01-14] MEDS ORDERED: MEROPENEM 2 GM in DEXTROSE 5%-WATER 100 ML IVPB SCH (18:00)
[2021-01-14] MEDS ORDERED: ALTEPLASE 2 MG VIAL IVPUSH ONE (21:04)
[2021-01-14] MEDS: MUPIROCIN 2% TOPICAL OINTMENT FOR DECOLONIZATION NS SCH (21:07)
[2021-01-14] MEDS ORDERED: CHLORHEXIDINE GLUCONATE 4% CLEANSER FOR DECOLONIZATION TP SCH ×2 (22:00)
[2021-01-14] MEDS ORDERED: SENNOSIDES 8.8 MG/5 ML BULK BOTTLE GT SCH (22:00)
[2021-01-15] MEDS ORDERED: MEROPENEM 1 GM VIAL (RESTRICTED TO ID) IVPB ONE (00:34)
[2021-01-15] MEDS ORDERED: DEXTROSE 5%-WATER 100 ML IVPB ONE (00:35)
[2021-01-15] MEDS: MEROPENEM 2 GM in DEXTROSE 5%-WATER - 250 ML IVPB SCH ×2 (02:00→09:48)
[2021-01-15 07:11] LABS: BASO % 0.2 % (0-2.0); EOS % 0.9 % (0-4.5); HEMATOCRIT 25.1 % (35.4-49); HEMOGLOBIN 8.2 GM/dL (11.7-16.9); LYMPH % 22.1 % (8-40); MCH 27.5 pg (25.7-33.7); MCHC 32.9 g/dl (32.0-35.9); MEAN CELL VOLUME 83.7 fl (80-96); MEAN PLT VOLUME 8.4 fl (7.5-11.1); MONO % 6.7 % (3.8-10.2); NEUT % 70.1 % (42.8-82.8); PLATELET COUNT 167 K/MM3 (134-434); RDW 20.4 % (11.9-15.9); WHITE BLOOD COUNT 6.4 K/mm3 (4.0-10.0)
[2021-01-15 07:19] LABS: CALCIUM 7.8 mg/dL (8.5-10.1)
[2021-01-15 07:20] LABS: ALBUMIN 2.4 g/dl (3.4-5.0); BLOOD UREA NITROGEN 26.4 mg/dL (7-18); MAGNESIUM 2.1 mg/dL (1.8-2.4)
[2021-01-15 07:23] LABS: BILIRUBIN,TOTAL 0.5 mg/dL (0.2-1); CREATININE 0.6 mg/dL (0.55-1.3); PHOSPHOROUS 3.5 mg/dL (2.5-4.9)
[2021-01-15] MEDS ORDERED: PT OWN MED DRAWER 7, Y5N ONE (09:40)
[2021-01-15] MEDS: NAPH,MB-DB/K PH,MBDB POWDER PACKET GT SCH (09:43)
[2021-01-15] MEDS: LABETALOL HCL 200 MG TABLET (FP) GT SCH (09:43)
[2021-01-15] MEDS: hydrALAZINE HCL 25 MG TABLET (FP) GT SCH (09:44)
[2021-01-15] MEDS: MUPIROCIN 2% TOPICAL OINTMENT FOR DECOLONIZATION NS SCH (09:46)
[2021-01-15] MEDS ORDERED: FERROUS SO4 300 MG/5 ML ORAL SOLN UNIT DOSE CUPS GT SCH (10:00)
[2021-01-15] MEDS ORDERED: LISINOPRIL 20 MG TABLET GT SCH (10:00)
[2021-01-15] MEDS ORDERED: POLYETHYLENE GLYCOL 3350 119 GM BTL GT SCH (10:00)
[2021-01-15] MEDS ORDERED: ASCORBIC ACID 500 MG/5 ML UNIT DOSE CUP GT SCH (10:00)
[2021-01-15] MEDS ORDERED: PANTOPRAZOLE SODIUM 40 MG VIAL IVPUSH SCH (10:00)
[2021-01-15] MEDS ORDERED: amLODIPine BESYLATE 5 MG TABLET (FP) GT SCH (10:00)
[2021-01-15] MEDS ORDERED: MULTIVIT-MINERALS ORAL LIQUID GT SCH (10:00)
[2021-01-15] MEDS ORDERED: FOLIC ACID 1 MG TABLET (FP) GT SCH (10:00)
[2021-01-15] MEDS ORDERED: THIAMINE HCL 200 MG/2 ML VIAL IVPB SCH (10:00)
[2021-01-15] MEDS ORDERED: POVIDONE-IODINE OINTMENT 10% - 28.4 GM TUBE ONE (10:03)
[2021-01-15] MEDS ORDERED: ARTIFICIAL TEARS (POLYVINYL ALCOHOL) OPTH DROPS OU PRN (16:44)
[2021-01-15] MEDS ORDERED: ACETAMINOPHEN 500 MG TABLET (FP) GT PRN (16:44)
[2021-01-15] MEDS ORDERED: ONDANSETRON 4 MG/2 ML VIAL IVPUSH PRN (16:44)
[2021-01-15] MEDS ORDERED: MEROPENEM 2 GM in DEXTROSE 5%-WATER - 250 ML IVPB SCH (18:00)
[2021-01-15] MEDS: SODIUM CHLORIDE 1,000 ML IV SCH (18:27)
[2021-01-15] MEDS ORDERED: ALTEPLASE 2 MG VIAL CVP ONE (20:22)
[2021-01-15] MEDS ORDERED: CHLORHEXIDINE GLUCONATE 4% CLEANSER FOR DECOLONIZATION TP SCH (22:00)
[2021-01-15] MEDS ORDERED: MUPIROCIN 2% TOPICAL OINTMENT FOR DECOLONIZATION NS SCH (22:00)
[2021-01-15] MEDS ORDERED: SENNOSIDES 8.8 MG/5 ML BULK BOTTLE GT SCH (22:00)
[2021-01-15] MEDS ORDERED: LABETALOL HCL 200 MG TABLET (FP) GT SCH (22:00)
[2021-01-15] MEDS ORDERED: NAPH,MB-DB/K PH,MBDB POWDER PACKET GT SCH (22:00)
[2021-01-15] MEDS ORDERED: hydrALAZINE HCL 25 MG TABLET (FP) GT SCH (22:00)
[2021-01-16] MEDS ORDERED: ARTIFICIAL TEARS (POLYVINYL ALCOHOL) OPTH DROPS OU PRN (00:27)
[2021-01-16] MEDS ORDERED: ACETAMINOPHEN 500 MG TABLET (FP) GT PRN (00:27)
[2021-01-16] MEDS ORDERED: PT OWN MED DRAWER 7, Y5N ONE ×2 (00:59→01:48)
[2021-01-16] MEDS: MEROPENEM 2 GM in DEXTROSE 5%-WATER - 250 ML IVPB SCH ×3 (01:31→17:25)
[2021-01-16] MEDS: PANTOPRAZOLE 40 MG TABLET PO SCH (06:29)
[2021-01-16 07:18] LABS: BASO % 0.4 % (0-2.0); EOS % 5.7 % (0-4.5); HEMATOCRIT 24.6 % (35.4-49); HEMOGLOBIN 8.2 GM/dL (11.7-16.9); LYMPH % 25.1 % (8-40); MCHC 33.5 g/dl (32.0-35.9); MEAN CELL VOLUME 83.5 fl (80-96); MEAN PLT VOLUME 8.1 fl (7.5-11.1); MONO % 5.8 % (3.8-10.2); PLATELET COUNT 158 K/MM3 (134-434); RBC 2.95 M/mm3 (4.00-5.60); RDW 20.8 % (11.9-15.9); WHITE BLOOD COUNT 5.9 K/mm3 (4.0-10.0)
[2021-01-16 07:47] LABS: CALCIUM 7.5 mg/dL (8.5-10.1)
[2021-01-16 07:48] LABS: ALBUMIN 2.2 g/dl (3.4-5.0); BLOOD UREA NITROGEN 28.1 mg/dL (7-18); MAGNESIUM 2.2 mg/dL (1.8-2.4)
[2021-01-16 07:51] LABS: CREATININE 0.5 mg/dL (0.55-1.3); PHOSPHOROUS 2.7 mg/dL (2.5-4.9)
[2021-01-16 07:52] LABS: TOT PROT 5.8 g/dl (6.4-8.2)
[2021-01-16] MEDS: THIAMINE HCL 100 MG TABLET (FP) PO SCH (09:50)
[2021-01-16] MEDS: hydrALAZINE HCL 25 MG TABLET (FP) GT SCH ×2 (09:51→21:59)
[2021-01-16] MEDS: FOLIC ACID 1 MG TABLET (FP) GT SCH (09:51)
[2021-01-16] MEDS: LABETALOL HCL 200 MG TABLET (FP) GT SCH ×2 (09:51→21:59)
[2021-01-16] MEDS: FERROUS SO4 300 MG/5 ML ORAL SOLN UNIT DOSE CUPS GT SCH (09:51)
[2021-01-16] MEDS: NAPH,MB-DB/K PH,MBDB POWDER PACKET GT SCH ×2 (09:51→21:59)
[2021-01-16] MEDS: amLODIPine BESYLATE 5 MG TABLET (FP) GT SCH (09:51)
[2021-01-16] MEDS: MULTIVIT-MINERALS ORAL LIQUID GT SCH (09:52)
[2021-01-16] MEDS: ASCORBIC ACID 500 MG/5 ML UNIT DOSE CUP GT SCH (09:52)
[2021-01-16] MEDS: POLYETHYLENE GLYCOL 3350 119 GM BTL GT SCH (09:56)
[2021-01-16] MEDS: LISINOPRIL 20 MG TABLET GT SCH (09:57)
[2021-01-16] MEDS ORDERED: FERROUS SO4 300 MG/5 ML ORAL SOLN UNIT DOSE CUPS GT SCH (10:00)
[2021-01-16] MEDS ORDERED: FOLIC ACID 1 MG TABLET (FP) GT SCH (10:00)
[2021-01-16] MEDS ORDERED: amLODIPine BESYLATE 5 MG TABLET (FP) GT SCH (10:00)
[2021-01-16] MEDS ORDERED: PANTOPRAZOLE 40 MG TABLET PO SCH (10:00)
[2021-01-16] MEDS ORDERED: POLYETHYLENE GLYCOL 3350 119 GM BTL GT SCH (10:00)
[2021-01-16] MEDS ORDERED: ASCORBIC ACID 500 MG/5 ML UNIT DOSE CUP GT SCH (10:00)
[2021-01-16] MEDS ORDERED: MULTIVIT-MINERALS ORAL LIQUID GT SCH (10:00)
[2021-01-16] MEDS ORDERED: LISINOPRIL 20 MG TABLET GT SCH (10:00)
[2021-01-16] MEDS ORDERED: cloNIDine-TTS 0.2 MG/24 HOURS PATCH.TDWK TD SCH ×3 (10:00)
[2021-01-16] MEDS ORDERED: THIAMINE HCL 100 MG TABLET (FP) PO SCH (10:00)
[2021-01-16 11:35] LABS: ANISOCYTOSIS 1+; MACROCYTOSIS 0; OVALOCYTE 2+; PLATELET ESTIMATE DECREASED; TEAR DROP CELLS 1+
[2021-01-16] MEDS: SENNOSIDES 8.8 MG/5 ML BULK BOTTLE GT SCH (22:00)
[2021-01-17] MEDS ORDERED: PT OWN MED DRAWER 7, Y5N ONE ×3 (01:14→16:56)
[2021-01-17] MEDS: MEROPENEM 2 GM in DEXTROSE 5%-WATER - 250 ML IVPB SCH ×3 (02:34→17:23)
[2021-01-17 07:10] LABS: BASO % 0.8 % (0-2.0); EOS % 7.9 % (0-4.5); HEMATOCRIT 25.7 % (35.4-49); HEMOGLOBIN 8.5 GM/dL (11.7-16.9); MCH 27.8 pg (25.7-33.7); MCHC 33.2 g/dl (32.0-35.9); MEAN CELL VOLUME 83.8 fl (80-96); MEAN PLT VOLUME 8.2 fl (7.5-11.1); MONO % 6.6 % (3.8-10.2); NEUT % 54.7 % (42.8-82.8); PLATELET COUNT 154 K/MM3 (134-434); RBC 3.07 M/mm3 (4.00-5.60); RDW 19.7 % (11.9-15.9)
[2021-01-17 07:29] LABS: CALCIUM 7.7 mg/dL (8.5-10.1)
[2021-01-17 07:30] LABS: ALBUMIN 2.2 g/dl (3.4-5.0); MAGNESIUM 2.1 mg/dL (1.8-2.4)
[2021-01-17 07:33] LABS: CREATININE 0.5 mg/dL (0.55-1.3); PHOSPHOROUS 2.7 mg/dL (2.5-4.9)
[2021-01-17 07:34] LABS: BILIRUBIN,TOTAL 0.8 mg/dL (0.2-1); TOT PROT 5.8 g/dl (6.4-8.2)
[2021-01-17] MEDS: PANTOPRAZOLE 40 MG TABLET PO SCH (07:37)
[2021-01-17] MEDS: LABETALOL HCL 200 MG TABLET (FP) GT SCH ×2 (10:18→21:44)
[2021-01-17] MEDS: amLODIPine BESYLATE 5 MG TABLET (FP) GT SCH (10:18)
[2021-01-17] MEDS: hydrALAZINE HCL 25 MG TABLET (FP) GT SCH ×2 (10:18→21:44)
[2021-01-17] MEDS: THIAMINE HCL 100 MG TABLET (FP) PO SCH (10:18)
[2021-01-17] MEDS: FOLIC ACID 1 MG TABLET (FP) GT SCH (10:18)
[2021-01-17] MEDS: LISINOPRIL 20 MG TABLET GT SCH (10:18)
[2021-01-17] MEDS: MULTIVIT-MINERALS ORAL LIQUID GT SCH (10:19)
[2021-01-17] MEDS: FERROUS SO4 300 MG/5 ML ORAL SOLN UNIT DOSE CUPS GT SCH (10:19)
[2021-01-17] MEDS: ASCORBIC ACID 500 MG/5 ML UNIT DOSE CUP GT SCH (10:19)
[2021-01-17] MEDS: NAPH,MB-DB/K PH,MBDB POWDER PACKET GT SCH ×2 (10:19→21:43)
[2021-01-17] MEDS: POLYETHYLENE GLYCOL 3350 119 GM BTL GT SCH (10:20)
[2021-01-17] MEDS: HEPARIN NA (PORCINE) 5,000 UNITS/ML 1ML VIAL SQ SCH ×2 (15:00→21:44)
[2021-01-17] MEDS ORDERED: ACETAMINOPHEN 325 MG TABLET (FP) PO PRN (20:25)
[2021-01-17] MEDS: SENNOSIDES 8.8 MG/5 ML BULK BOTTLE GT SCH (21:44)
[2021-01-18] MEDS ORDERED: PT OWN MED DRAWER 7, Y5N ONE ×2 (01:31→08:35)
[2021-01-18] MEDS: MEROPENEM 2 GM in DEXTROSE 5%-WATER - 250 ML IVPB SCH ×3 (02:18→18:14)
[2021-01-18] MEDS: HEPARIN NA (PORCINE) 5,000 UNITS/ML 1ML VIAL SQ SCH ×3 (06:20→21:36)
[2021-01-18 06:50] LABS: EOS % 9.7 % (0-4.5); HEMATOCRIT 25.9 % (35.4-49); HEMOGLOBIN 8.6 GM/dL (11.7-16.9); LYMPH % 30.4 % (8-40); MCH 27.9 pg (25.7-33.7); MCHC 33.4 g/dl (32.0-35.9); MEAN CELL VOLUME 83.7 fl (80-96); MONO % 6.7 % (3.8-10.2); NEUT % 52.2 % (42.8-82.8); PLATELET COUNT 161 K/MM3 (134-434); RBC 3.09 M/mm3 (4.00-5.60); RDW 19.4 % (11.9-15.9); WHITE BLOOD COUNT 4.8 K/mm3 (4.0-10.0)
[2021-01-18] MEDS: PANTOPRAZOLE 40 MG TABLET PO SCH (07:19)
[2021-01-18 07:26] LABS: ALBUMIN 2.2 g/dl (3.4-5.0); BILIRUBIN,TOTAL 0.7 mg/dL (0.2-1); BLOOD UREA NITROGEN 27.8 mg/dL (7-18); CALCIUM 7.9 mg/dL (8.5-10.1); CREATININE 0.5 mg/dL (0.55-1.3); MAGNESIUM 2.2 mg/dL (1.8-2.4); PHOSPHOROUS 2.8 mg/dL (2.5-4.9); TOT PROT 6.1 g/dl (6.4-8.2)
[2021-01-18] MEDS: THIAMINE HCL 100 MG TABLET (FP) PO SCH (09:31)
[2021-01-18] MEDS: LABETALOL HCL 200 MG TABLET (FP) GT SCH ×2 (09:31→21:36)
[2021-01-18] MEDS: hydrALAZINE HCL 25 MG TABLET (FP) GT SCH ×2 (09:31→21:36)
[2021-01-18] MEDS: amLODIPine BESYLATE 5 MG TABLET (FP) GT SCH (09:31)
[2021-01-18] MEDS: LISINOPRIL 20 MG TABLET GT SCH (09:31)
[2021-01-18] MEDS: POLYETHYLENE GLYCOL 3350 119 GM BTL GT SCH (09:32)
[2021-01-18] MEDS: FOLIC ACID 1 MG TABLET (FP) GT SCH (09:32)
[2021-01-18] MEDS: FERROUS SO4 300 MG/5 ML ORAL SOLN UNIT DOSE CUPS GT SCH (09:32)
[2021-01-18] MEDS: ASCORBIC ACID 500 MG/5 ML UNIT DOSE CUP GT SCH (09:32)
[2021-01-18] MEDS: NAPH,MB-DB/K PH,MBDB POWDER PACKET GT SCH ×2 (09:32→21:37)
[2021-01-18] MEDS: MULTIVIT-MINERALS ORAL LIQUID GT SCH (09:32)
[2021-01-18] MEDS: SENNOSIDES 8.8 MG/5 ML BULK BOTTLE GT SCH (21:37)
[2021-01-19] MEDS: MEROPENEM 2 GM in DEXTROSE 5%-WATER - 250 ML IVPB SCH ×3 (02:15→18:12)
[2021-01-19] MEDS: HEPARIN NA (PORCINE) 5,000 UNITS/ML 1ML VIAL SQ SCH ×3 (05:34→21:11)
[2021-01-19] MEDS: PANTOPRAZOLE 40 MG TABLET PO SCH (06:46)
[2021-01-19 08:09] LABS: ALBUMIN 2.4 g/dl (3.4-5.0); BLOOD UREA NITROGEN 28.7 mg/dL (7-18); CALCIUM 8.4 mg/dL (8.5-10.1)
[2021-01-19 08:10] LABS: MAGNESIUM 2.1 mg/dL (1.8-2.4)
[2021-01-19 08:13] LABS: BILIRUBIN,TOTAL 0.7 mg/dL (0.2-1); CREATININE 0.5 mg/dL (0.55-1.3); PHOSPHOROUS 2.9 mg/dL (2.5-4.9); TOT PROT 6.1 g/dl (6.4-8.2)
[2021-01-19 08:34] LABS: BASO % 0.7 % (0-2.0); EOS % 7.7 % (0-4.5); HEMATOCRIT 25.6 % (35.4-49); HEMOGLOBIN 8.6 GM/dL (11.7-16.9); MCHC 33.7 g/dl (32.0-35.9); MEAN CELL VOLUME 83.1 fl (80-96); MEAN PLT VOLUME 8.1 fl (7.5-11.1); MONO % 6.6 % (3.8-10.2); PLATELET COUNT 161 K/MM3 (134-434); RBC 3.08 M/mm3 (4.00-5.60); RDW 19.7 % (11.9-15.9)
[2021-01-19] MEDS ORDERED: PT OWN MED DRAWER 7, Y5N ONE ×2 (09:01→10:20)
[2021-01-19] MEDS: NAPH,MB-DB/K PH,MBDB POWDER PACKET GT SCH ×2 (09:22→21:11)
[2021-01-19] MEDS: hydrALAZINE HCL 25 MG TABLET (FP) GT SCH ×2 (09:22→21:11)
[2021-01-19] MEDS: FERROUS SO4 300 MG/5 ML ORAL SOLN UNIT DOSE CUPS GT SCH (09:22)
[2021-01-19] MEDS: THIAMINE HCL 100 MG TABLET (FP) PO SCH (09:22)
[2021-01-19] MEDS: FOLIC ACID 1 MG TABLET (FP) GT SCH (09:22)
[2021-01-19] MEDS: amLODIPine BESYLATE 5 MG TABLET (FP) GT SCH (09:22)
[2021-01-19] MEDS: LISINOPRIL 20 MG TABLET GT SCH (09:22)
[2021-01-19] MEDS: LABETALOL HCL 200 MG TABLET (FP) GT SCH ×2 (09:23→21:11)
[2021-01-19] MEDS: MULTIVIT-MINERALS ORAL LIQUID GT SCH (09:23)
[2021-01-19] MEDS: POLYETHYLENE GLYCOL 3350 119 GM BTL GT SCH (09:23)
[2021-01-19] MEDS: ASCORBIC ACID 500 MG/5 ML UNIT DOSE CUP GT SCH (09:24)
[2021-01-19] MEDS: SENNOSIDES 8.8 MG/5 ML BULK BOTTLE GT SCH (21:12)
[2021-01-20] MEDS: MEROPENEM 2 GM in DEXTROSE 5%-WATER - 250 ML IVPB SCH ×2 (01:14→09:27)
[2021-01-20] MEDS: HEPARIN NA (PORCINE) 5,000 UNITS/ML 1ML VIAL SQ SCH ×3 (05:09→21:42)
[2021-01-20] MEDS: PANTOPRAZOLE 40 MG TABLET PO SCH (06:12)
[2021-01-20 06:42] LABS: BASO % 0.5 % (0-2.0); EOS % 7.8 % (0-4.5); HEMATOCRIT 26.1 % (35.4-49); MCH 28.4 pg (25.7-33.7); MCHC 34.3 g/dl (32.0-35.9); MEAN CELL VOLUME 82.9 fl (80-96); MEAN PLT VOLUME 8.2 fl (7.5-11.1); MONO % 5.8 % (3.8-10.2); NEUT % 60.9 % (42.8-82.8); PLATELET COUNT 161 K/MM3 (134-434); RBC 3.15 M/mm3 (4.00-5.60); RDW 19.5 % (11.9-15.9); WHITE BLOOD COUNT 6.4 K/mm3 (4.0-10.0)
[2021-01-20 07:15] LABS: ALBUMIN 2.4 g/dl (3.4-5.0); CREATININE 0.5 mg/dL (0.55-1.3)
[2021-01-20 07:16] LABS: BILIRUBIN,TOTAL 0.7 mg/dL (0.2-1); TOT PROT 6.3 g/dl (6.4-8.2)
[2021-01-20 07:18] LABS: PHOSPHOROUS 2.7 mg/dL (2.5-4.9)
[2021-01-20 07:20] LABS: CALCIUM 8.4 mg/dL (8.5-10.1); MAGNESIUM 2.2 mg/dL (1.8-2.4)
[2021-01-20] MEDS: POLYETHYLENE GLYCOL 3350 119 GM BTL GT SCH (09:27)
[2021-01-20] MEDS: FOLIC ACID 1 MG TABLET (FP) GT SCH (09:28)
[2021-01-20] MEDS: LABETALOL HCL 200 MG TABLET (FP) GT SCH ×2 (09:28→21:42)
[2021-01-20] MEDS: FERROUS SO4 300 MG/5 ML ORAL SOLN UNIT DOSE CUPS GT SCH (09:28)
[2021-01-20] MEDS: THIAMINE HCL 100 MG TABLET (FP) PO SCH (09:28)
[2021-01-20] MEDS: NAPH,MB-DB/K PH,MBDB POWDER PACKET GT SCH ×2 (09:28→21:42)
[2021-01-20] MEDS: LISINOPRIL 20 MG TABLET GT SCH (09:28)
[2021-01-20] MEDS: hydrALAZINE HCL 25 MG TABLET (FP) GT SCH (09:28)
[2021-01-20] MEDS: amLODIPine BESYLATE 5 MG TABLET (FP) GT SCH (11:46)
[2021-01-20] MEDS ORDERED: amLODIPine BESYLATE 10 MG TABLET (FP) GT SCH (12:35)
[2021-01-20] MEDS ORDERED: PT OWN MED DRAWER 7, Y5N ONE ×2 (13:26→21:42)
[2021-01-20] MEDS: ASCORBIC ACID 500 MG/5 ML UNIT DOSE CUP GT SCH (13:28)
[2021-01-20] MEDS: MULTIVIT-MINERALS ORAL LIQUID GT SCH (13:28)
[2021-01-20] MEDS: SENNOSIDES 8.8 MG/5 ML BULK BOTTLE GT SCH (21:43)
[2021-01-20] MEDS ORDERED: hydrALAZINE HCL 25 MG TABLET (FP) GT SCH (22:00)
[2021-01-20 23:04] LABS: ARTERIAL BLD GAS O2 SATURATION 99.7 mmHg (95-98); ARTERIAL BLOOD GAS BASE EXCESS 3.1 mmol/L (-2-2); ARTERIAL BLOOD GAS pH 7.464 (7.350-7.450)
[2021-01-20 23:05] LABS: ALLENS TEST POSITIVE
[2021-01-21] MEDS ORDERED: cloNIDine-TTS 0.2 MG/24 HOURS PATCH.TDWK TD SCH (00:11)
[2021-01-21] MEDS ORDERED: ACETAMINOPHEN 325 MG TABLET (FP) PO PRN (00:11)
[2021-01-21] MEDS ORDERED: ARTIFICIAL TEARS (POLYVINYL ALCOHOL) OPTH DROPS OU PRN (00:11)
[2021-01-21] MEDS ORDERED: FUROSEMIDE 40 MG/4 ML INJECTABLE VIAL IVPUSH ONE (01:11)
[2021-01-21] MEDS: MUPIROCIN 2% TOPICAL OINTMENT FOR DECOLONIZATION NS SCH ×3 (01:20→20:59)
[2021-01-21 02:15] LABS: BASO % 0.2 % (0-2.0); EOS % 1.1 % (0-4.5); HEMATOCRIT 28.4 % (35.4-49); HEMOGLOBIN 9.6 GM/dL (11.7-16.9); LYMPH % 14.3 % (8-40); MCH 28.1 pg (25.7-33.7); MEAN CELL VOLUME 82.7 fl (80-96); MEAN PLT VOLUME 8.1 fl (7.5-11.1); MONO % 3.9 % (3.8-10.2); NEUT % 80.5 % (42.8-82.8); PLATELET COUNT 169 K/MM3 (134-434); RBC 3.43 M/mm3 (4.00-5.60); RDW 18.8 % (11.9-15.9)
[2021-01-21] MEDS ORDERED: GENTAMICIN SO4 80 MG/2 ML VIAL ONE (02:30)
[2021-01-21] MEDS ORDERED: LIDOCAINE 1%/EPI 1:100000 (50 ML MULTI DOSE VIAL) ONE (02:30)
[2021-01-21] MEDS ORDERED: THROMBIN (BOVINE) 20,000 UNIT VIAL TP ONE (02:31)
[2021-01-21 02:35] LABS: INR 1.13 (0.83-1.09); PROTHROMBIN TIME (PATIENT) 13.8 SEC (9.7-13.0)
[2021-01-21] MEDS ORDERED: PROPOFOL 20 ML ONE ×2 (02:44)
[2021-01-21 02:45] LABS: ALBUMIN 2.6 g/dl (3.4-5.0); BLOOD UREA NITROGEN 23.8 mg/dL (7-18); CALCIUM 8.6 mg/dL (8.5-10.1); MAGNESIUM 2.2 mg/dL (1.8-2.4)
[2021-01-21] MEDS ORDERED: ROCURONIUM BROMIDE 50 MG/5 ML SYRINGE ONE (02:46)
[2021-01-21 02:48] LABS: CREATININE 0.5 mg/dL (0.55-1.3)
[2021-01-21 02:50] LABS: BILIRUBIN,TOTAL 0.8 mg/dL (0.2-1); TOT PROT 6.9 g/dl (6.4-8.2)
[2021-01-21 03:04] LABS: PHOSPHOROUS 3.8 mg/dL (2.5-4.9)
[2021-01-21] MEDS ORDERED: LIDOCAINE 1%/EPI 1:100000 (50 ML MULTI DOSE VIAL) INF ONE (03:18)
[2021-01-21] MEDS ORDERED: VANCOMYCIN 1,000 MG VIAL (RESTRICTED TO ID ONLY) ONE (03:19)
[2021-01-21] MEDS ORDERED: ceFAZolin SODIUM 1 GM VIAL ONE (03:19)
[2021-01-21] MEDS ORDERED: VANCOMYCIN 1,000 MG VIAL (RESTRICTED TO ID ONLY) IVPB ONE (03:22)
[2021-01-21] MEDS ORDERED: ceFAZolin SODIUM 1 GM VIAL IVPB ONE (03:22)
[2021-01-21] MEDS ORDERED: HYDROGEN PEROXIDE 473 ML PO ONE (03:32)
[2021-01-21] MEDS ORDERED: GENTAMICIN SO4 80 MG/2 ML VIAL IVPB ONE (03:32)
[2021-01-21] MEDS ORDERED: BACITRACIN 50,000 UNITS VIAL TP ONE (03:32)
[2021-01-21] MEDS ORDERED: ONDANSETRON 4 MG/2 ML VIAL IVPUSH ONE ×2 (05:11→12:30)
[2021-01-21] MEDS ORDERED: HEPARIN NA (PORCINE) 5,000 UNITS/ML 1ML VIAL SQ SCH (06:00)
[2021-01-21] MEDS ORDERED: hydrALAZINE HCL 25 MG TABLET (FP) GT SCH (06:00)
[2021-01-21 06:12] LABS: BASO % 0.2 % (0-2.0); EOS % 0.6 % (0-4.5); HEMATOCRIT 28.2 % (35.4-49); HEMOGLOBIN 9.5 GM/dL (11.7-16.9); LYMPH % 13.9 % (8-40); MCHC 33.8 g/dl (32.0-35.9); MEAN CELL VOLUME 82.7 fl (80-96); MEAN PLT VOLUME 8.2 fl (7.5-11.1); MONO % 4.5 % (3.8-10.2); NEUT % 80.8 % (42.8-82.8); PLATELET COUNT 173 K/MM3 (134-434); RBC 3.41 M/mm3 (4.00-5.60); RDW 18.2 % (11.9-15.9); WHITE BLOOD COUNT 8.2 K/mm3 (4.0-10.0)
[2021-01-21 06:29] LABS: CALCIUM 8.9 mg/dL (8.5-10.1)
[2021-01-21 06:30] LABS: BLOOD UREA NITROGEN 22.4 mg/dL (7-18)
[2021-01-21 06:32] LABS: ALBUMIN 2.6 g/dl (3.4-5.0); MAGNESIUM 2.1 mg/dL (1.8-2.4)
[2021-01-21 06:33] LABS: CREATININE 0.5 mg/dL (0.55-1.3)
[2021-01-21 06:34] LABS: BILIRUBIN,TOTAL 0.8 mg/dL (0.2-1); TOT PROT 6.6 g/dl (6.4-8.2)
[2021-01-21 06:36] LABS: PHOSPHOROUS 3.5 mg/dL (2.5-4.9)
[2021-01-21] MEDS ORDERED: LISINOPRIL 20 MG TABLET GT SCH (10:00)
[2021-01-21] MEDS ORDERED: FENTANYL NS IVPB 500 MCG/100 ML BAG IVPB ONE (10:43)
[2021-01-21] MEDS: PROPOFOL 1,000,000 MCG/100 ML VIAL IVPB SCH (10:57)
[2021-01-21] MEDS: FENTANYL NS IVPB 500 MCG/100 ML BAG IVPB SCH ×2 (10:58→20:58)
[2021-01-21] MEDS ORDERED: AMPICILLIN NA/SULBACTAM NA 1.5 GM in SODIUM CHLORIDE 100 ML IVPB SCH (11:00)
[2021-01-21] MEDS: ASCORBIC ACID 500 MG/5 ML UNIT DOSE CUP GT SCH ×2 (11:27→12:49)
[2021-01-21] MEDS: MULTIVIT-MINERALS ORAL LIQUID GT SCH ×2 (11:28→12:50)
[2021-01-21] MEDS: FOLIC ACID 1 MG TABLET (FP) GT SCH ×2 (11:29→12:46)
[2021-01-21] MEDS: THIAMINE HCL 100 MG TABLET (FP) NGT SCH ×2 (11:29→12:49)
[2021-01-21] MEDS: POLYETHYLENE GLYCOL 3350 119 GM BTL GT SCH ×2 (11:31→12:49)
[2021-01-21] MEDS: FAMOTIDINE 40 MG/5 ML ORAL SUSPENSION NGT SCH ×3 (11:31→20:59)
[2021-01-21] MEDS ORDERED: SODIUM CHLORIDE 100 ML IVPB ONE (11:40)
[2021-01-21] MEDS ORDERED: AMPICILLIN NA/SULBACTAM NA 1.5 GM VIAL ONE (11:40)
[2021-01-21] MEDS ORDERED: LORazepam 2 MG/ML SDV VIAL IVPUSH ONE (11:52)
[2021-01-21] MEDS ORDERED: LORazepam 2 MG/ML SDV VIAL ONE (11:53)
[2021-01-21] MEDS ORDERED: ACETAMINOPHEN 1000 MG/100 ML VIAL (NON FORMULARY) IVPB PRN (11:57)
[2021-01-21] MEDS ORDERED: SODIUM CHLORIDE 0.9% 500 ML INFUS.BAG IV ONE ×2 (12:35→16:09)
[2021-01-21] MEDS: FERROUS SO4 300 MG/5 ML ORAL SOLN UNIT DOSE CUPS GT SCH (12:36)
[2021-01-21] MEDS: PIPERACILLIN/TAZOB 4.5 GM 4.5 GM in DEXTROSE 5%-WATER 100 ML IVPB SCH ×2 (15:40→17:29)
[2021-01-21] MEDS ORDERED: PIPERACILLIN/TAZOBACTAM 4.5 GM VIAL IVPB ONE ×2 (15:48→17:26)
[2021-01-21] MEDS ORDERED: DEXTROSE 5%-WATER 100 ML IVPB ONE ×2 (15:48→17:26)
[2021-01-21] MEDS: levETIRAcetam 500 MG/5 ML INJECTION VIAL IVPB SCH ×2 (15:50→20:59)
[2021-01-21] MEDS: VANCOMYCIN/WATER BAGS 1,250 MG/250 ML BAG IVPB SCH (16:00)
[2021-01-21] MEDS ORDERED: SODIUM CHLORIDE 1,000 ML IV STA (17:22)
[2021-01-21] MEDS: DOPAMINE 400 MG/D5W - 400,000 MCG/250 ML INFUS.BAG IVPB SCH (17:58)
[2021-01-21 18:03] LABS: CSF APPEARANCE BLOODY; CSF COLOR RED; CSF WBC 0
[2021-01-21] MEDS ORDERED: PT OWN MED DRAWER 7, Y5N ONE (19:34)
[2021-01-21] MEDS: CHLORHEXIDINE GLUCONATE 4% CLEANSER FOR DECOLONIZATION TP SCH (20:59)
[2021-01-21] MEDS ORDERED: PANTOPRAZOLE SODIUM 40 MG VIAL IVPUSH ONE (21:01)
[2021-01-21] MEDS: SENNOSIDES 8.8 MG/5 ML BULK BOTTLE GT SCH (21:02)
[2021-01-22] MEDS ORDERED: PIPERACILLIN/TAZOBACTAM 4.5 GM VIAL IVPB ONE ×3 (01:30→17:30)
[2021-01-22] MEDS ORDERED: DEXTROSE 5%-WATER 100 ML IVPB ONE ×3 (01:31→17:30)
[2021-01-22] MEDS ORDERED: PT OWN MED DRAWER 7, Y5N ONE ×3 (01:32→22:04)
[2021-01-22] MEDS: PIPERACILLIN/TAZOB 4.5 GM 4.5 GM in DEXTROSE 5%-WATER 100 ML IVPB SCH ×3 (01:39→17:36)
[2021-01-22] MEDS: FENTANYL NS IVPB 500 MCG/100 ML BAG IVPB SCH ×2 (01:45→09:00)
[2021-01-22] MEDS: VANCOMYCIN/WATER BAGS 1,250 MG/250 ML BAG IVPB SCH ×2 (02:27→14:35)
[2021-01-22 04:21] LABS: BF GLUCOSE (CSF ONLY) 11 mg/dL (40-70)
[2021-01-22 07:43] LABS: BASO % 0.7 % (0-2.0); EOS % 4.8 % (0-4.5); HEMATOCRIT 24.5 % (35.4-49); HEMOGLOBIN 8.3 GM/dL (11.7-16.9); LYMPH % 24.5 % (8-40); MCH 28.3 pg (25.7-33.7); MCHC 33.7 g/dl (32.0-35.9); MEAN CELL VOLUME 83.9 fl (80-96); MEAN PLT VOLUME 8.2 fl (7.5-11.1); MONO % 7.3 % (3.8-10.2); NEUT % 62.7 % (42.8-82.8); PLATELET COUNT 167 K/MM3 (134-434); RBC 2.92 M/mm3 (4.00-5.60); RDW 18.7 % (11.9-15.9); WHITE BLOOD COUNT 6.4 K/mm3 (4.0-10.0)
[2021-01-22] MEDS ORDERED: POTASSIUM CHLORIDE ORAL LIQUID 20 MEQ/15 ML GT ONE (08:16)
[2021-01-22 08:24] LABS: ALBUMIN 2.2 g/dl (3.4-5.0); BILIRUBIN,TOTAL 0.9 mg/dL (0.2-1)
[2021-01-22 08:25] LABS: BLOOD UREA NITROGEN 21.9 mg/dL (7-18)
[2021-01-22 08:26] LABS: CREATININE 0.7 mg/dL (0.55-1.3); TOT PROT 5.8 g/dl (6.4-8.2)
[2021-01-22 08:29] LABS: MAGNESIUM 2.1 mg/dL (1.8-2.4)
[2021-01-22 08:30] LABS: CALCIUM 8.2 mg/dL (8.5-10.1)
[2021-01-22] MEDS ORDERED: LORazepam 2 MG/ML SDV VIAL ONE (09:35)
[2021-01-22] MEDS: LORazepam 2 MG/ML SDV VIAL IVPUSH PRN (09:50)
[2021-01-22] MEDS: levETIRAcetam 500 MG/5 ML INJECTION VIAL IVPB SCH ×2 (09:59→22:16)
[2021-01-22] MEDS: FAMOTIDINE 40 MG/5 ML ORAL SUSPENSION NGT SCH ×2 (11:00→22:19)
[2021-01-22] MEDS: MULTIVIT-MINERALS ORAL LIQUID GT SCH (11:02)
[2021-01-22] MEDS: MUPIROCIN 2% TOPICAL OINTMENT FOR DECOLONIZATION NS SCH ×2 (11:02→22:16)
[2021-01-22] MEDS: FERROUS SO4 300 MG/5 ML ORAL SOLN UNIT DOSE CUPS GT SCH (11:03)
[2021-01-22] MEDS: FOLIC ACID 1 MG TABLET (FP) GT SCH (11:04)
[2021-01-22] MEDS: THIAMINE HCL 100 MG TABLET (FP) NGT SCH (11:05)
[2021-01-22] MEDS: POLYETHYLENE GLYCOL 3350 119 GM BTL GT SCH (11:05)
[2021-01-22] MEDS: ASCORBIC ACID 500 MG/5 ML UNIT DOSE CUP GT SCH (11:06)
[2021-01-22] MEDS: PROPOFOL 1,000,000 MCG/100 ML VIAL IVPB SCH (14:28)
[2021-01-22] MEDS: DOPAMINE 400 MG/D5W - 400,000 MCG/250 ML INFUS.BAG IVPB SCH (18:06)
[2021-01-22] MEDS: CHLORHEXIDINE GLUCONATE 4% CLEANSER FOR DECOLONIZATION TP SCH (22:15)
[2021-01-22] MEDS: SENNOSIDES 8.8 MG/5 ML BULK BOTTLE GT SCH (22:17)
[2021-01-23] MEDS ORDERED: PIPERACILLIN/TAZOBACTAM 4.5 GM VIAL IVPB ONE ×3 (01:40→16:55)
[2021-01-23] MEDS ORDERED: DEXTROSE 5%-WATER 100 ML IVPB ONE ×3 (01:40→16:55)
[2021-01-23] MEDS: PIPERACILLIN/TAZOB 4.5 GM 4.5 GM in DEXTROSE 5%-WATER 100 ML IVPB SCH ×3 (01:59→17:12)
[2021-01-23] MEDS: VANCOMYCIN/WATER BAGS 1,250 MG/250 ML BAG IVPB SCH (03:49)
[2021-01-23 07:22] LABS: BASO % 0.7 % (0-2.0); EOS % 9.3 % (0-4.5); HEMATOCRIT 23.6 % (35.4-49); HEMOGLOBIN 7.9 GM/dL (11.7-16.9); LYMPH % 23.5 % (8-40); MCH 27.9 pg (25.7-33.7); MCHC 33.6 g/dl (32.0-35.9); MEAN CELL VOLUME 83.1 fl (80-96); MEAN PLT VOLUME 7.7 fl (7.5-11.1); MONO % 7.1 % (3.8-10.2); NEUT % 59.4 % (42.8-82.8); PLATELET COUNT 159 K/MM3 (134-434); RBC 2.84 M/mm3 (4.00-5.60); RDW 18.6 % (11.9-15.9); WHITE BLOOD COUNT 6.3 K/mm3 (4.0-10.0)
[2021-01-23] MEDS ORDERED: fentaNYL CITRATE 250 MCG/5 ML VIAL ONE (07:36)
[2021-01-23 08:07] LABS: BLOOD UREA NITROGEN 21.8 mg/dL (7-18); CALCIUM 8.3 mg/dL (8.5-10.1)
[2021-01-23 08:08] LABS: MAGNESIUM 2.2 mg/dL (1.8-2.4)
[2021-01-23 08:10] LABS: CREATININE 0.7 mg/dL (0.55-1.3)
[2021-01-23 08:12] LABS: BILIRUBIN,TOTAL 0.8 mg/dL (0.2-1)
[2021-01-23 08:13] LABS: TOT PROT 5.5 g/dl (6.4-8.2)
[2021-01-23] MEDS: levETIRAcetam 500 MG/5 ML INJECTION VIAL IVPB SCH ×2 (10:06→21:43)
[2021-01-23] MEDS: FERROUS SO4 300 MG/5 ML ORAL SOLN UNIT DOSE CUPS GT SCH (10:06)
[2021-01-23] MEDS: MULTIVIT-MINERALS ORAL LIQUID GT SCH (10:07)
[2021-01-23] MEDS: FAMOTIDINE 40 MG/5 ML ORAL SUSPENSION NGT SCH (10:08)
[2021-01-23] MEDS: FOLIC ACID 1 MG TABLET (FP) GT SCH (10:13)
[2021-01-23] MEDS: THIAMINE HCL 100 MG TABLET (FP) NGT SCH (10:13)
[2021-01-23] MEDS: MUPIROCIN 2% TOPICAL OINTMENT FOR DECOLONIZATION NS SCH ×2 (10:15→21:42)
[2021-01-23] MEDS: POLYETHYLENE GLYCOL 3350 119 GM BTL GT SCH (10:21)
[2021-01-23] MEDS: ASCORBIC ACID 500 MG/5 ML UNIT DOSE CUP GT SCH (10:30)
[2021-01-23] MEDS: PROPOFOL 1,000,000 MCG/100 ML VIAL IVPB SCH (13:00)
[2021-01-23] MEDS: FENTANYL NS IVPB 500 MCG/100 ML BAG IVPB SCH (13:00)
[2021-01-23] MEDS ORDERED: PT OWN MED DRAWER 7, Y5N ONE ×2 (16:56→21:36)
[2021-01-23] MEDS: LORazepam 2 MG/ML SDV VIAL IVPUSH PRN (17:13)
[2021-01-23] MEDS: CHLORHEXIDINE GLUCONATE 4% CLEANSER FOR DECOLONIZATION TP SCH (21:42)
[2021-01-24] MEDS: SENNOSIDES 8.8 MG/5 ML BULK BOTTLE GT SCH ×2 (00:34→22:00)
[2021-01-24] MEDS: FAMOTIDINE 40 MG/5 ML ORAL SUSPENSION NGT SCH ×3 (00:34→22:39)
[2021-01-24] MEDS ORDERED: DEXTROSE 5%-WATER 100 ML IVPB ONE ×3 (01:32→17:13)
[2021-01-24] MEDS ORDERED: PIPERACILLIN/TAZOBACTAM 4.5 GM VIAL IVPB ONE ×3 (01:32→17:13)
[2021-01-24] MEDS: PIPERACILLIN/TAZOB 4.5 GM 4.5 GM in DEXTROSE 5%-WATER 100 ML IVPB SCH ×3 (01:46→18:19)
[2021-01-24 07:11] LABS: BASO % 0.8 % (0-2.0); EOS % 8.9 % (0-4.5); HEMATOCRIT 22.9 % (35.4-49); HEMOGLOBIN 7.9 GM/dL (11.7-16.9); LYMPH % 28.8 % (8-40); MCH 28.4 pg (25.7-33.7); MCHC 34.4 g/dl (32.0-35.9); MEAN CELL VOLUME 82.4 fl (80-96); MEAN PLT VOLUME 7.3 fl (7.5-11.1); MONO % 8.2 % (3.8-10.2); NEUT % 53.3 % (42.8-82.8); PLATELET COUNT 159 K/MM3 (134-434); RBC 2.78 M/mm3 (4.00-5.60); RDW 18.4 % (11.9-15.9); WHITE BLOOD COUNT 5.3 K/mm3 (4.0-10.0)
[2021-01-24 07:31] LABS: BLOOD UREA NITROGEN 25.9 mg/dL (7-18); CALCIUM 7.9 mg/dL (8.5-10.1)
[2021-01-24 07:34] LABS: PHOSPHOROUS 3.4 mg/dL (2.5-4.9)
[2021-01-24 07:35] LABS: CREATININE 0.9 mg/dL (0.55-1.3)
[2021-01-24 07:36] LABS: BILIRUBIN,TOTAL 0.9 mg/dL (0.2-1); TOT PROT 5.6 g/dl (6.4-8.2)
[2021-01-24] MEDS: LORazepam 2 MG/ML SDV VIAL IVPUSH PRN (08:21)
[2021-01-24] MEDS ORDERED: POTASSIUM CHLORIDE ORAL LIQUID 20 MEQ/15 ML GT ONE (08:30)
[2021-01-24] MEDS: FOLIC ACID 1 MG TABLET (FP) GT SCH (08:59)
[2021-01-24] MEDS: THIAMINE HCL 100 MG TABLET (FP) NGT SCH (08:59)
[2021-01-24] MEDS: POLYETHYLENE GLYCOL 3350 119 GM BTL GT SCH (09:00)
[2021-01-24] MEDS: levETIRAcetam 500 MG/5 ML INJECTION VIAL IVPB SCH ×2 (09:01→21:47)
[2021-01-24] MEDS: MULTIVIT-MINERALS ORAL LIQUID GT SCH (09:05)
[2021-01-24] MEDS: MUPIROCIN 2% TOPICAL OINTMENT FOR DECOLONIZATION NS SCH ×2 (09:06→21:48)
[2021-01-24] MEDS: ASCORBIC ACID 500 MG/5 ML UNIT DOSE CUP GT SCH (09:06)
[2021-01-24] MEDS ORDERED: PT OWN MED DRAWER 7, Y5N ONE (09:08)
[2021-01-24] MEDS: FERROUS SO4 300 MG/5 ML ORAL SOLN UNIT DOSE CUPS GT SCH (09:20)
[2021-01-24] MEDS: PROPOFOL 1,000,000 MCG/100 ML VIAL IVPB SCH (10:44)
[2021-01-24 17:58] LABS: CSF APPEARANCE TURBID; CSF COLOR PINK
[2021-01-24 18:13] LABS: BF GLUCOSE (CSF ONLY) 45 mg/dL (40-70)
[2021-01-24 19:54] LABS: CSF WBC 109
[2021-01-24] MEDS: CHLORHEXIDINE GLUCONATE 4% CLEANSER FOR DECOLONIZATION TP SCH (21:48)
[2021-01-25] MEDS: PIPERACILLIN/TAZOB 4.5 GM 4.5 GM in DEXTROSE 5%-WATER 100 ML IVPB SCH ×2 (02:40→09:37)
[2021-01-25] MEDS ORDERED: DEXTROSE 5%-WATER 100 ML IVPB ONE ×2 (03:13→09:20)
[2021-01-25] MEDS ORDERED: PIPERACILLIN/TAZOBACTAM 4.5 GM VIAL IVPB ONE ×2 (03:13→09:20)
[2021-01-25 06:32] LABS: HEMATOCRIT 22.6 % (35.4-49); HEMOGLOBIN 7.5 GM/dL (11.7-16.9); LYMPH % 30.3 % (8-40); MCH 27.8 pg (25.7-33.7); MCHC 33.2 g/dl (32.0-35.9); MEAN CELL VOLUME 83.7 fl (80-96); MEAN PLT VOLUME 7.7 fl (7.5-11.1); MONO % 7.2 % (3.8-10.2); NEUT % 50.5 % (42.8-82.8); PLATELET COUNT 162 K/MM3 (134-434); RDW 18.1 % (11.9-15.9); WHITE BLOOD COUNT 4.7 K/mm3 (4.0-10.0)
[2021-01-25 06:40] LABS: CALCIUM 8.3 mg/dL (8.5-10.1)
[2021-01-25 06:41] LABS: BLOOD UREA NITROGEN 25.7 mg/dL (7-18); MAGNESIUM 2.2 mg/dL (1.8-2.4)
[2021-01-25 06:44] LABS: CREATININE 0.9 mg/dL (0.55-1.3); PHOSPHOROUS 3.5 mg/dL (2.5-4.9)
[2021-01-25 06:45] LABS: BILIRUBIN,TOTAL 0.6 mg/dL (0.2-1)
[2021-01-25 06:46] LABS: TOT PROT 5.6 g/dl (6.4-8.2)
[2021-01-25] MEDS ORDERED: PT OWN MED DRAWER 7, Y5N ONE ×4 (09:18→23:08)
[2021-01-25] MEDS: ASCORBIC ACID 500 MG/5 ML UNIT DOSE CUP GT SCH (09:32)
[2021-01-25] MEDS: MULTIVIT-MINERALS ORAL LIQUID GT SCH (09:32)
[2021-01-25] MEDS: MUPIROCIN 2% TOPICAL OINTMENT FOR DECOLONIZATION NS SCH ×2 (09:34→22:16)
[2021-01-25] MEDS: POLYETHYLENE GLYCOL 3350 119 GM BTL GT SCH (09:35)
[2021-01-25] MEDS: FERROUS SO4 300 MG/5 ML ORAL SOLN UNIT DOSE CUPS GT SCH (09:35)
[2021-01-25] MEDS: levETIRAcetam 500 MG/5 ML INJECTION VIAL IVPB SCH ×2 (09:35→22:14)
[2021-01-25] MEDS: FOLIC ACID 1 MG TABLET (FP) GT SCH (09:35)
[2021-01-25] MEDS: FAMOTIDINE 40 MG/5 ML ORAL SUSPENSION NGT SCH ×2 (09:36→22:15)
[2021-01-25] MEDS: THIAMINE HCL 100 MG TABLET (FP) NGT SCH (09:36)
[2021-01-25] MEDS: PROPOFOL 1,000,000 MCG/100 ML VIAL IVPB SCH ×2 (09:37→17:20)
[2021-01-25] MEDS: VANCOMYCIN/WATER BAGS 1,250 MG/250 ML BAG IVPB SCH ×2 (10:35→22:15)
[2021-01-25 16:10] LABS: CSF COLOR XANTHOCHROMIC
[2021-01-25 16:27] LABS: CSF APPEARANCE HAZY
[2021-01-25] MEDS: CEFEPIME 2 GM in DEXTROSE 5%-WATER 2 GM/100 ML BAG IVPB SCH (17:19)
[2021-01-25] MEDS ORDERED: MEROPENEM 2 GM in DEXTROSE 5%-WATER 100 ML IVPB SCH (18:00)
[2021-01-25 19:00] LABS: CSF WBC 53
[2021-01-25 20:49] LABS: BF GLUCOSE (CSF ONLY) 55 mg/dL (40-70)
[2021-01-25] MEDS: SENNOSIDES 8.8 MG/5 ML BULK BOTTLE GT SCH (22:16)
[2021-01-25] MEDS: CHLORHEXIDINE GLUCONATE 4% CLEANSER FOR DECOLONIZATION TP SCH (22:17)
[2021-01-26] MEDS: CEFEPIME 2 GM in DEXTROSE 5%-WATER 2 GM/100 ML BAG IVPB SCH ×2 (00:55→09:41)
[2021-01-26 07:07] LABS: HEMATOCRIT 24.1 % (35.4-49); LYMPH % 30.6 % (8-40); MCH 27.6 pg (25.7-33.7); MCHC 33.3 g/dl (32.0-35.9); MEAN CELL VOLUME 82.8 fl (80-96); MEAN PLT VOLUME 7.9 fl (7.5-11.1); NEUT % 52.4 % (42.8-82.8); PLATELET COUNT 179 K/MM3 (134-434); RBC 2.91 M/mm3 (4.00-5.60); RDW 18.2 % (11.9-15.9); WHITE BLOOD COUNT 4.8 K/mm3 (4.0-10.0)
[2021-01-26 07:19] LABS: BLOOD UREA NITROGEN 27.3 mg/dL (7-18); CALCIUM 8.3 mg/dL (8.5-10.1); MAGNESIUM 2.3 mg/dL (1.8-2.4)
[2021-01-26 07:22] LABS: CREATININE 0.9 mg/dL (0.55-1.3); PHOSPHOROUS 3.8 mg/dL (2.5-4.9)
[2021-01-26 07:24] LABS: BILIRUBIN,TOTAL 0.7 mg/dL (0.2-1); TOT PROT 5.6 g/dl (6.4-8.2)
[2021-01-26] MEDS ORDERED: KCL 10 MEQ IVPB 10 MEQ/100 ML INFUS.BAG IVPB SCH (07:45)
[2021-01-26] MEDS ORDERED: PT OWN MED DRAWER 7, Y5N ONE ×2 (09:46→18:13)
[2021-01-26] MEDS: levETIRAcetam 500 MG/5 ML INJECTION VIAL IVPB SCH ×2 (09:57→22:00)
[2021-01-26 10:49] LABS: CSF APPEARANCE HAZY; CSF COLOR AMBER
[2021-01-26] MEDS: FAMOTIDINE 40 MG/5 ML ORAL SUSPENSION NGT SCH ×2 (11:07→22:17)
[2021-01-26] MEDS: PROPOFOL 1,000,000 MCG/100 ML VIAL IVPB SCH ×2 (11:08→21:00)
[2021-01-26] MEDS: THIAMINE HCL 100 MG TABLET (FP) NGT SCH (11:09)
[2021-01-26] MEDS: POLYETHYLENE GLYCOL 3350 119 GM BTL GT SCH (11:09)
[2021-01-26] MEDS: ASCORBIC ACID 500 MG/5 ML UNIT DOSE CUP GT SCH (11:09)
[2021-01-26] MEDS: MULTIVIT-MINERALS ORAL LIQUID GT SCH (11:11)
[2021-01-26] MEDS: FERROUS SO4 300 MG/5 ML ORAL SOLN UNIT DOSE CUPS GT SCH (11:11)
[2021-01-26] MEDS: FOLIC ACID 1 MG TABLET (FP) GT SCH (11:12)
[2021-01-26 11:19] LABS: CSF WBC 48
[2021-01-26 11:27] LABS: OTHER CELLS 3
[2021-01-26] MEDS: VANCOMYCIN/WATER BAGS 1,250 MG/250 ML BAG IVPB SCH ×2 (11:30→22:16)
[2021-01-26 14:12] LABS: BF GLUCOSE (CSF ONLY) 50 mg/dL (40-70)
[2021-01-26] MEDS: CHLORHEXIDINE GLUCONATE 4% CLEANSER FOR DECOLONIZATION TP SCH (22:00)
[2021-01-26] MEDS: SENNOSIDES 8.8 MG/5 ML BULK BOTTLE GT SCH (22:15)
[2021-01-27] MEDS: PROPOFOL 1,000,000 MCG/100 ML VIAL IVPB SCH ×4 (00:10→10:33)
[2021-01-27] MEDS: CEFEPIME 2 GM in DEXTROSE 5%-WATER 2 GM/100 ML BAG IVPB SCH ×3 (02:00→18:42)
[2021-01-27 05:49] LABS: ARTERIAL BLD GAS O2 SATURATION 98.7 mmHg (95-98); ARTERIAL BLOOD GAS BASE EXCESS 0.4 mmol/L (-2-2); ARTERIAL BLOOD GAS PO2 133.2 mmHg (80-100); ARTERIAL BLOOD GAS pH 7.426 (7.350-7.450)
[2021-01-27 05:52] LABS: ALLENS TEST POSITIVE; VENT MODE A/C; VENT RATE 12
[2021-01-27 07:13] LABS: BASO % 1.3 % (0-2.0); EOS % 11.9 % (0-4.5); HEMATOCRIT 23.6 % (35.4-49); HEMOGLOBIN 7.8 GM/dL (11.7-16.9); LYMPH % 30.6 % (8-40); MCH 27.2 pg (25.7-33.7); MEAN CELL VOLUME 82.4 fl (80-96); MEAN PLT VOLUME 7.9 fl (7.5-11.1); MONO % 6.5 % (3.8-10.2); NEUT % 49.7 % (42.8-82.8); PLATELET COUNT 161 K/MM3 (134-434); RBC 2.87 M/mm3 (4.00-5.60); RDW 17.9 % (11.9-15.9); WHITE BLOOD COUNT 4.5 K/mm3 (4.0-10.0)
[2021-01-27 07:33] LABS: BLOOD UREA NITROGEN 28.1 mg/dL (7-18); CALCIUM 8.3 mg/dL (8.5-10.1); MAGNESIUM 2.3 mg/dL (1.8-2.4)
[2021-01-27 07:36] LABS: CREATININE 0.7 mg/dL (0.55-1.3); PHOSPHOROUS 4.2 mg/dL (2.5-4.9)
[2021-01-27 07:38] LABS: BILIRUBIN,TOTAL 0.5 mg/dL (0.2-1); TOT PROT 5.6 g/dl (6.4-8.2)
[2021-01-27] MEDS ORDERED: PT OWN MED DRAWER 7, Y5N ONE ×2 (09:05→09:07)
[2021-01-27] MEDS: ASCORBIC ACID 500 MG/5 ML UNIT DOSE CUP GT SCH (10:09)
[2021-01-27] MEDS: POLYETHYLENE GLYCOL 3350 119 GM BTL GT SCH (10:10)
[2021-01-27] MEDS: FAMOTIDINE 40 MG/5 ML ORAL SUSPENSION NGT SCH (10:10)
[2021-01-27] MEDS: MULTIVIT-MINERALS ORAL LIQUID GT SCH (10:11)
[2021-01-27] MEDS: FERROUS SO4 300 MG/5 ML ORAL SOLN UNIT DOSE CUPS GT SCH (10:11)
[2021-01-27] MEDS: FOLIC ACID 1 MG TABLET (FP) GT SCH (10:12)
[2021-01-27] MEDS: THIAMINE HCL 100 MG TABLET (FP) NGT SCH (10:12)
[2021-01-27] MEDS: VANCOMYCIN/WATER BAGS 1,250 MG/250 ML BAG IVPB SCH (10:13)
[2021-01-27] MEDS: levETIRAcetam 500 MG/5 ML INJECTION VIAL IVPB SCH (10:13)
[2021-01-27 18:24] VITALS: TEMP 98.2
[2021-01-27 20:11] VITALS: BP 160/91; PULSE 63
[2021-01-28 12:12] LABS: SARS-CoV-2 NAA Not Detected (Not Detected)
== END 2021-01-27 21:18 | disposition short-term general hospital (02) | DRG 25 ==
LOC: JER 12:05 → JERBED 16:28 → JICU 11-21 18:49 → J4W 12-25 23:37 → JICU 12-26 19:23 → J4S 01-16 00:28 → JICU 01-21 00:11
PROVIDERS: ADMIT Student in an Organized Health Care Education/Training Program; ATTEND Internal Medicine Pulmonary Disease
PROC: 00B60ZX Excision of Cerebral Ventricle, Open Approach, Diagnostic (ICD-10-PCS; principal; 2020-11-21 11:30)
PROC: 009600Z Drainage of Cerebral Ventricle with Drainage Device, Open Approach (ICD-10-PCS; 2020-11-29)
PROC: 5A1955Z Respiratory Ventilation, Greater than 96 Consecutive Hours (ICD-10-PCS; 2020-11-29)
PROC: 0BH17EZ Insertion of Endotracheal Airway into Trachea, Via Natural or Artificial Opening (ICD-10-PCS; 2020-11-29)
PROC: 3E0G76Z Introduction of Nutritional Substance into Upper GI, Via Natural or Artificial Opening (ICD-10-PCS; 2020-12-02)
PROC: 0DH67UZ Insertion of Feeding Device into Stomach, Via Natural or Artificial Opening (ICD-10-PCS; 2020-12-02)
PROC: 30233N1 Transfusion of Nonautologous Red Blood Cells into Peripheral Vein, Percutaneous Approach (ICD-10-PCS; 2020-12-09)
PROC: 00160J6 Bypass Cerebral Ventricle to Peritoneal Cavity with Synthetic Substitute, Open Approach (ICD-10-PCS; 2020-12-10)
PROC: 0HB0XZZ Excision of Scalp Skin, External Approach (ICD-10-PCS; 2020-12-10)
PROC: 00P6X0Z Removal of Drainage Device from Cerebral Ventricle, External Approach (ICD-10-PCS; 2020-12-10)
PROC: 02H633Z Insertion of Infusion Device into Right Atrium, Percutaneous Approach (ICD-10-PCS; 2020-12-12)
PROC: B548ZZA Ultrasonography of Superior Vena Cava, Guidance (ICD-10-PCS; 2020-12-12)
PROC: 03HY32Z Insertion of Monitoring Device into Upper Artery, Percutaneous Approach (ICD-10-PCS; 2020-12-14)
PROC: 4A133B1 Monitoring of Arterial Pressure, Peripheral, Percutaneous Approach (ICD-10-PCS; 2020-12-14)
PROC: 0DH63UZ Insertion of Feeding Device into Stomach, Percutaneous Approach (ICD-10-PCS; 2020-12-24)
PROC: 3E0G76Z Introduction of Nutritional Substance into Upper GI, Via Natural or Artificial Opening (ICD-10-PCS; 2020-12-24)
PROC: 00P60JZ Removal of Synthetic Substitute from Cerebral Ventricle, Open Approach (ICD-10-PCS; 2020-12-27)
PROC: 009600Z Drainage of Cerebral Ventricle with Drainage Device, Open Approach (ICD-10-PCS; 2020-12-27)
PROC: 0HB0XZZ Excision of Scalp Skin, External Approach (ICD-10-PCS; 2020-12-27)
PROC: 4A10X4Z Monitoring of Central Nervous Electrical Activity, External Approach (ICD-10-PCS; 2021-01-16)
PROC: 00160J6 Bypass Cerebral Ventricle to Peritoneal Cavity with Synthetic Substitute, Open Approach (ICD-10-PCS; 2021-01-21)
PROC: 009600Z Drainage of Cerebral Ventricle with Drainage Device, Open Approach (ICD-10-PCS; 2021-01-21)
PROC: 5A1955Z Respiratory Ventilation, Greater than 96 Consecutive Hours (ICD-10-PCS; 2021-01-21)
DX: C71.1 Malignant neoplasm of frontal lobe (principal); J69.0 Pneumonitis due to inhalation of food and vomit; I62.00 Nontraumatic subdural hemorrhage, unspecified; J96.90 Respiratory failure, unspecified, unspecified whether with hypoxia or hypercapnia; G93.6 Cerebral edema; I50.33 Acute on chronic diastolic (congestive) heart failure; G03.9 Meningitis, unspecified; I16.1 Hypertensive emergency; R47.01 Aphasia; N17.9 Acute kidney failure, unspecified; G97.51 Postprocedural hemorrhage of a nervous system organ or structure following a nervous system procedure; E87.0 Hyperosmolality and hypernatremia; N39.0 Urinary tract infection, site not specified; L03.114 Cellulitis of left upper limb; G91.1 Obstructive hydrocephalus; I13.0 Hypertensive heart and chronic kidney disease with heart failure and stage 1 through stage 4 chronic kidney disease, or unspecified chronic kidney disease; G96.00 Cerebrospinal fluid leak, unspecified; T85.730A Infection and inflammatory reaction due to ventricular intracranial (communicating) shunt, initial encounter; N18.9 Chronic kidney disease, unspecified; E78.5 Hyperlipidemia, unspecified; M51.26 Other intervertebral disc displacement, lumbar region; Z85.528 Personal history of other malignant neoplasm of kidney; R50.82 Postprocedural fever; D64.9 Anemia, unspecified; E87.6 Hypokalemia; B96.89 Other specified bacterial agents as the cause of diseases classified elsewhere; G93.89 Other specified disorders of brain; E88.09 Other disorders of plasma-protein metabolism, not elsewhere classified; Y83.8 Other surgical procedures as the cause of abnormal reaction of the patient, or of later complication, without mention of misadventure at the time of the procedure; I48.0 Paroxysmal atrial fibrillation; R00.1 Bradycardia, unspecified
CPT/HCPCS: 31500; 36415; 36430; 36600; 49440; 70450-TC; 70551-TC; 71045-TC-FY; 71250-TC; 74018-TC-FY; 74176-TC; 76775-TC; 76856-TC; 80048; 80053; 80061; 80076; 81003; 82436; 82550; 82570; 82607; 82803; 82945; 83010; 83540; 83550; 83605; 83615; 83721; 83735; 83935; 84100; 84133; 84146; 84157; 84300; 84443; 84484; 85025; 85027; 85610; 85730; 86850; 86900; 86901; 86922; 87040; 87070; 87077; 87086; 87102; 87186; 87205; 87210; 87899; 88300-TC; 88304-TC; 88305-TC; 88331-TC; 88341-TC; 93005; 93010; 93306-TC; 93970-TC; 93971; 93971-TC; 94002; 94640; 94660; 94760; 95816; 97116-GP; 97161-GP; 99285-25; C9803; G0480; J0131; J0282; J1644; J1756; J2997; P9058; U0003; U0005